=== PATIENT | female | born 1975 | race Caucasian/White ===

== ENCOUNTER → 2021-07-26 | Outpatient (CLI) | payer MEDICAID ==
[~2021-07-26] MED LIST: ACET-168 PO; AMLO-251; AMOX400S8; CANA100T; CARV25TA; CEFD300C3 PO; CLN.1T; DICY20TA PO; FLUC100T PO; INSU100I14 SQ; INSU100I29 SQ; IPRA3AMP31 IH; KETO10TA PO; LEVO500T81 PO; LISI10TA25 PO; LISI20TA26 PO; LISI40TA9; METF750T45 PO; METO-333 PO; MTC10T PO; OMEP20CA18 PO; ONDA4TAB11 PO; POTA-51 PO; POTA10CA43 PO; PROC10TA10 PO; PROM25SU43 RC; PROM25TA14 PO; PROM50SU10 RC; RT-ALBUINH IH; SCOP1PAT17 TD; SCOPALAMINE TD; SUCR1TAB36 PO; TRAZ150T72 PO; TRM50T PO; VENL150T PO
== END ==
LOC: WOUNDCARE 13:35 → MERGE 13:35
PROVIDERS: ATTEND Family Medicine
DX: S31.102A Unspecified open wound of abdominal wall, epigastric region without penetration into peritoneal cavity, initial encounter (principal); T81.31XA Disruption of external operation (surgical) wound, not elsewhere classified, initial encounter; L98.492 Non-pressure chronic ulcer of skin of other sites with fat layer exposed; E11.622 Type 2 diabetes mellitus with other skin ulcer; E66.01 Morbid (severe) obesity due to excess calories; E11.43 Type 2 diabetes mellitus with diabetic autonomic (poly)neuropathy; K31.84 Gastroparesis; B18.2 Chronic viral hepatitis C; L02.211 Cutaneous abscess of abdominal wall; B95.62 Methicillin resistant Staphylococcus aureus infection as the cause of diseases classified elsewhere; E11.52 Type 2 diabetes mellitus with diabetic peripheral angiopathy with gangrene
CPT/HCPCS: 11042; 97605

== ENCOUNTER 2021-07-29 04:12 | Emergency (ER) | payer MEDICAID, OTHER ==
[~2021-07-29] VITALS: Ht 157 cm; Wt 84.3 kg
[~2021-07-29 04:12] MED LIST changes: -PROC10TA10 PO
[2021-07-29] MEDS ORDERED: ONDANSETRON 4 MG/2 ML (SDV) Z0FRAN IVP STA ×2 (04:40→05:30)
[2021-07-29] MEDS ORDERED: fentaNYL INJ 100 MCG/2 ML AMP IVP STA ×2 (04:40→05:30)
[2021-07-29] MEDS ORDERED: NS IV 1000 ML 1,000 ML IV STA ×2 (04:40→05:36)
[2021-07-29 04:53] LABS: BASOPHILS % (AUTO) 0 % (0-10); EOSINOPHILS % (AUTO) 1 % (0-10); HEMATOCRIT 39 % (35-52); HEMOGLOBIN 13.8 g/dL (11.5-16.0); LYMPHOCYTES # (AUTO) 1.5 X 10^3 (1.0-4.0); LYMPHOCYTES % (AUTO) 14 % (12-44); MEAN CORPUSCULAR HEMOGLOBIN 30 pg (25-34); MEAN CORPUSCULAR HGB CONC 35 g/dL (32-36); MEAN CORPUSCULAR VOLUME 86 fL (80-99); MEAN PLATELET VOLUME 9.4 fL (9.0-12.2); MONOCYTES % (AUTO) 4 % (0-12); NEUTROPHILS # (AUTO) 8.7 X 10^3 (1.8-7.8); NEUTROPHILS % (AUTO) 81 % (42-75); PLATELET COUNT 353 10^3/uL (130-400); WHITE BLOOD COUNT 10.7 10^3/uL (4.3-11.0)
[2021-07-29 04:54] LABS: EOSINOPHILS # (AUTO) 0.1 10^3/uL (0.0-0.3); MONOCYTES # (AUTO) 0.4 X 10^3 (0.0-1.0)
--- NOTE | 2021-07-29 04:55 | ED General ---
General Chief Complaint: Abdominal/GI Problems Stated Complaint: NAUSEA/VOMITING/FEVER Nursing Triage Note: Pt c/o n/v and abd pain x few days. Was seen in ED on Monday for similar symptoms but has not followed up. Source of Information: Patient, Old Records History of Present Illness Date Seen by Provider: Jul 29, 2021 Time Seen by Provider: 04:14 Initial Comments 45-year-old female presenting with recurrent complaints of continued abdominal pain and nausea and vomiting. She is very anxious and hyperventilating on arrival to the ED. She states that she is running a fever of 101 Fahrenheit. She had not taken anything for her fever and the check in the emergency department shows that she is afebrile. She has a chronic wound VAC on her abdomen and had CT scan and evaluation done on the here in the ED that did not show any abscess or signs of fluid collection. Her blood work showed a. Stable and she had improved with pain medicine and nausea medicine with IV fluids. She states that she has seen the wound care staff but she has not followed up with her specialist out of [facility] since being seen. She has had multiple ER visits since the first of the year for similar complaints. She is very anxious and sure that there is an infection and something wrong with her abdomen despite the repeated test not showing that. She states that she had gotten much worse since yesterday July 28. Finally at 4 in the morning she came to the emergency department for these recurrent symptoms and complaints that have been going on for over 3 weeks but she felt it was worse in last 12-16 hours. Modifying Factors: worse with Eating Associated Systoms: No Chest Pain, No Cough, No Diaphoresis; Fever/Chills (reports fever of 101 F at home prior to coming to ED. Did not treat fever and is afebrile on arrival to ED), Loss of Appetite, Malaise, Nausea/Vomiting; No Rash, No Seizure, No Shortness of Air, No Syncope; Weakness Allergies and Home Medications Allergies Coded Allergies: adhesive tape (Verified Allergy, Unknown, 07/29/21) chlorhexidine (Verified Allergy, Unknown, 07/29/21) fluvoxamine (Verified Allergy, Unknown, 07/29/21) hydromorphone (Verified Allergy, Unknown, 07/29/21) latex (Verified Allergy, Unknown, 07/29/21) meperidine (Verified Allergy, Unknown, 07/29/21) metoclopramide (Verified Allergy, Unknown, Tardive Dyskinesia, 07/29/21) morphine (Verified Allergy, Unknown, 07/29/21) promethazine (Verified Allergy, Unknown, 07/29/21) sulfamethoxazole (Verified Allergy, Unknown, 07/29/21) trimethoprim (Verified Allergy, Unknown, 07/29/21) Patient Home Medication List Home Medication List Reviewed: Yes Prochlorperazine Maleate (Prochlorperazine Maleate) 10 Mg Tablet, 10 MG PO Q6H PRN for NAUSEA/VOMITING-2ND LINE Prescribed by: RANULFO GOODRICH on 07/29/21 0608 Review of Systems Review of Systems Constitutional: see HPI, chills EENTM: no symptoms reported Respiratory: short of breath (feels short fo breath with her anxiety) Cardiovascular: No chest pain Gastrointestinal: see HPI Genitourinary: no symptoms reported Musculoskeletal: no symptoms reported Skin: No change in color Psychiatric/Neurological: Anxiety Past [id number] Hx Patient Social History Tobacco Use?: Yes Tobacco type used: Cigarettes Use of E-Cig and/or Vaping dev: No Substance use?: No Alcohol Use?: No Pt feels they are or have been: No Immunizations Up To Date First/Initial COVID19 Vaccinat: 01/20 Second COVID19 Vaccination Guy: 01/20 Seasonal Allergies Seasonal Allergies: Yes Past Medical History Surgery/Hospitalization HX: Gastroparesis, chronic abdominal wound infection with MRSA, jejunostomy tube October 2019, gastric stimulator, pyloroplasty, cholecystectomy, hysterectomy, orthopedics Surgeries: Yes Abdominal, Gallbladder, Hysterectomy, Orthopedic Respiratory: Yes Asthma Cardiac: No Neurological: No Female 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 Disorders: 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 oz. kg; 34.00 BMI Method: General Appearance: Anxious, Moderate Distress (Hyperventilating and anxious) HEENT: No Moist Mucous Membranes (Slightly dry mucous membranes) Neck: Full Range of Motion, Normal Inspection, Non Tender Respiratory: Chest Non Tender, Lungs Clear, Normal Breath Sounds, No Accessory Muscle Use, No Respiratory Distress Cardiovascular: Regular Rate, Rhythm, Normal Peripheral Pulses Gastrointestinal: Normal Bowel Sounds, No Pulsatile Mass, Soft; No Distended; Guarding; No Rebound; Tenderness (Diffuse tenderness abdomen.), Other (Wound VAC in place) Rectal: Deferred Extremity: Normal Capillary Refill, Normal Inspection, No Pedal Edema Neurologic/Psychiatric: Alert, Oriented x3 Skin: Warm/Dry Focused Exam Lactate Level 07/29/21 04:40: Lactic Acid Level 2.23*H Lactic Acid Level Laboratory Tests Test 07/29/21 04:40 Lactic Acid Level 2.23 MMOL/L (0.50-2.00) *H Progress/Results/Core Measures Suspected Sepsis SIRS Temperature: Pulse: 88 Respiratory Rate: 16 Laboratory Tests 07/29/21 04:40: White Blood Count 10.7 Blood Pressure 199 /103 Mean: 135 07/29/21 04:40: Lactic Acid Level 2.23*H Laboratory Tests 07/29/21 04:40: Creatinine 0.72, Platelet Count 353, Total Bilirubin 0.3 Results/Orders Lab Results Laboratory Tests Test 07/29/21 04:40 07/29/21 05:00 Range/Units White Blood Count 10.7 4.3-11.0 10^3/uL Red Blood Count 4.55 3.80-5.11 10^6/uL Hemoglobin 13.8 11.5-16.0 g/dL Hematocrit 39 35-52 % Mean Corpuscular Volume 86 80-99 fL Mean Corpuscular Hemoglobin 30 25-34 pg Mean Corpuscular Hemoglobin Concent 35 32-36 g/dL Red Cell Distribution Width 13.6 10.0-14.5 % Platelet Count 353 130-400 10^3/uL Mean Platelet Volume 9.4 9.0-12.2 fL Immature Granulocyte % (Auto) 0 % Neutrophils (%) (Auto) 81 H 42-75 % Lymphocytes (%) (Auto) 14 12-44 % Monocytes (%) (Auto) 4 0-12 % Eosinophils (%) (Auto) 1 0-10 % Basophils (%) (Auto) 0 0-10 % Neutrophils # (Auto) 8.7 H 1.8-7.8 X 10^3 Lymphocytes # (Auto) 1.5 1.0-4.0 X 10^3 Monocytes # (Auto) 0.4 0.0-1.0 X 10^3 Eosinophils # (Auto) 0.1 0.0-0.3 10^3/uL Basophils # (Auto) 0.0 0.0-0.1 10^3/uL Immature Granulocyte # (Auto) 0.0 0.0-0.1 10^3/uL Sodium Level 136 135-145 MMOL/L Potassium Level 3.7 3.6-5.0 MMOL/L Chloride Level 101 98-107 MMOL/L Carbon Dioxide Level 20 L 21-32 MMOL/L Anion Gap 15 H 5-14 MMOL/L Blood Urea Nitrogen 7 7-18 MG/DL Creatinine 0.72 0.60-1.30 MG/DL Estimat Glomerular Filtration Rate 105 BUN/Creatinine Ratio 10 Glucose Level 300 H 70-105 MG/DL Lactic Acid Level 2.23 *H 0.50-2.00 MMOL/L Calcium Level 9.3 8.5-10.1 MG/DL Corrected Calcium 9.4 8.5-10.1 MG/DL Total Bilirubin 0.3 0.1-1.0 MG/DL Aspartate Amino Transf (AST/SGOT) 19 5-34 U/L Alanine Aminotransferase (ALT/SGPT) 14 0-55 U/L Alkaline Phosphatase 78 40-136 U/L Total Protein 7.1 6.4-8.2 GM/DL Albumin 3.9 3.2-4.5 GM/DL Lipase 33 8-78 U/L Urine Color ORANGE Urine Clarity SL CLOUDY Urine pH 6.5 5-9 Urine Specific [place] >=1.030 1.016-1.022 Urine Protein 2+ H NEGATIVE Urine Glucose (UA) TRACE H NEGATIVE Urine Ketones 1+ H NEGATIVE Urine Nitrite NEGATIVE NEGATIVE Urine Bilirubin NEGATIVE NEGATIVE Urine Urobilinogen 0.2 < = 1.0 MG/DL Urine Leukocyte Esterase NEGATIVE NEGATIVE Urine RBC (Auto) NEGATIVE NEGATIVE Urine RBC 5-10 H /HPF Urine WBC 0-2 /HPF Urine Squamous Epithelial Cells 5-10 /HPF Urine Crystals NONE /LPF Urine Calcium Oxalate Crystals MODERATE H /LPF Urine Bacteria MODERATE H /HPF Urine Casts NONE /LPF Urine Hyaline Casts 10-25 H /LPF Urine Mucus LARGE H /LPF Urine Culture Indicated YES My Orders Orders - RANULFO GOODRICH MD Comprehensive Metabolic Panel (07/29/21 04:40) Lipase (07/29/21 04:40) Ua Culture If Indicated (07/29/21 04:40) Ed Iv/Invasive Line Start (07/29/21 04:40) Cbc With Automated Diff (07/29/21 04:40) Blood Culture (07/29/21 04:40) Lactic Acid Analyzer (07/29/21 04:40) Ns Iv 1000 Ml (Sodium Chloride 0.9%) (07/29/21 04:40) Fentanyl Inj (Sublimaze Injection) (07/29/21 04:40) Ondansetron Injection (Zofran Injectio (07/29/21 04:40) Urine Culture (07/29/21 05:00) Fentanyl Inj (Sublimaze Injection) (07/29/21 05:30) Ondansetron Injection (Zofran Injectio (07/29/21 05:30) Ns Iv 1000 Ml (Sodium Chloride 0.9%) (07/29/21 05:36) Prochlorperazine Injection (Compazine In (07/29/21 05:36) Pantoprazole Injection (Protonix Injecti (07/29/21 05:36) Lorazepam Injection (Ativan Injection) (07/29/21 05:36) Vital Signs/I&O 07/29/21 07/29/21 04:17 06:00 Temp 36.9 Pulse 88 98 Resp 16 15 B/P (MAP) 199/103 (135) 166/78 Pulse Ox 98 97 O2 Delivery Room Air Room Air Capillary Refill : Blood Pressure Mean: 135 Progress Note #1: Progress Note Patient appears very anxious. She is hyperventilating. Her temperature here is afebrile. She is not tachycardic. Advised that we could repeat labs and testi ng similar to what was done on the and see if there is anything acute or different. However she likely needs to continue follow-up with wound care team and with her specialists out of [facility]. We will give 1 L of normal saline for IV fluids and hydration. Give 4 mg of Zofran IV for nausea. Patient was requesting ice chips as soon as she got back to the room. For her chronic abdominal pain will give fentanyl 50 mcg IV x1. Progress Note #2: Progress Note Labs appear stable with white blood cell count of 10.7 and hemoglobin of 13.8. She does not have acute significant abnormality other chemistry panel other than she has elevated glucose of 300. Her lactic acid was just above 2 and is likely related to dehydration and her hyperventilation since she is not showing signs of sepsis otherwise. Her urinalysis did not show signs of definite infection but did show elevated specific gravity greater than 1.030. Her UA from 07/25 had looked similar and the culture came back showing multiple organisms for contamination rather than true urine/bladder infection. Patient is resting in the room and not having vomiting or gagging until staff present to the room. Then see starts dry heaving until she forces herself to throw up. Advised that with just having a CT on the that did not show any signs of abscess or worsening infection will defer putting her through additional radiation today. Will order a second liter of IV fluids for hydration, repeat the fentanyl 50 mcg for pain, repeat Zofran 4 mg IV for nausea. When asked if patient could tolerate any other nausea medicines she said that Compazine sometimes helps. 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 Since she still seems anxious when staff comes into the room we will also try some Ativan. Still in addition to the repeat fentanyl and Zofran and second liter of normal saline for hydration we will give her Compazine 10 mg IV for nausea, Protonix 40 mg IV for gastritis and acid reducing, lorazepam 0.5 mg IV for anxiety and to help with her nausea. Plan to discharge to home after these medications and fluids have been administered and have her check back with her regular providers, wound care, and surgeon through [facility] for these chronic and recurrent conditions of abdominal pain and n/v. Departure Impression Primary Impression: Nausea and vomiting in adult Additional Impressions: Chronic generalized abdominal pain Dehydration Disposition: 01 HOME, SELF-CARE Condition: Stable Departure-Patient Inst. Decision time for Depature: 06:08 Referrals: SELF,VIKY BALL Primary Care Physician Patient Instructions: Nausea and Vomiting, Adult ED, Dehydration, Adult ED, Abdominal Pain, Adult ED Add. Discharge Instructions: Continue with your medications from home. Continue to sip on fluids and work on pushing fluids to try and be better hydrated. Follow up with clinic and with your surgeon from [facility] for your recurrent abdominal pain with nausea and vomiting. All discharge instructions reviewed with patient and/or family. Voiced understanding. Scripts Prochlorperazine Maleate (Prochlorperazine Maleate) 10 Mg Tablet 10 MG PO Q6H PRN for NAUSEA/VOMITING-2ND LINE for 5 Days, #20 TAB 0 Refills Prov: RANULFO GOODRICH MD 07/29/21 RANULFO GOODRICH MD Jul 29, 2021 04:55
[2021-07-29 05:19] LABS: ALBUMIN 3.9 GM/DL (3.2-4.5); BILIRUBIN,TOTAL 0.3 MG/DL (0.1-1.0); CALCIUM 9.3 MG/DL (8.5-10.1); CREATININE SERUM 0.72 MG/DL (0.60-1.30); POTASSIUM 3.7 MMOL/L (3.6-5.0); TOTAL PROTEIN 7.1 GM/DL (6.4-8.2)
[2021-07-29 05:20] LABS: BACTERIA,URINE MODERATE /HPF; BILIRUBIN,URINE NEGATIVE (NEGATIVE); CALCIUM OXALATE CRYSTALS,UR MODERATE /LPF; CLARITY,URINE SL CLOUDY; COLOR,URINE ORANGE; GLUCOSE, URINE (UA) TRACE (NEGATIVE); KETONES,URINE 1+ (NEGATIVE); LEUKOCYTE ESTERASE ,URINE NEGATIVE (NEGATIVE); NITRITE,URINE NEGATIVE (NEGATIVE); PH,URINE 6.5 (5-9); PROTEIN,URINE 2+ (NEGATIVE); WBC,URINE 0-2 /HPF
[2021-07-29] MEDS ORDERED: PROCHLORPERAZINE 10 MG/2ML INJ (COMPAZINE) IV STA (05:36)
[2021-07-29] MEDS ORDERED: LORazepam INJ 2 MG/ML (ATIVAN) VIAL IVP STA (05:36)
[2021-07-29] MEDS ORDERED: PANTOPRAZOLE 40 MG (PROTONIX) VIAL IV STA (05:36)
[2021-07-29] MEDS ORDERED: PROC10TA10 PO (06:08)
[2021-07-29 06:25] VITALS: BP 166/78
== END 2021-07-29 06:25 | disposition home or self-care (01) ==
LOC: ER FS 04:19
DX: R11.2 Nausea with vomiting, unspecified (principal); R10.84 Generalized abdominal pain; E86.0 Dehydration; R06.4 Hyperventilation; J45.909 Unspecified asthma, uncomplicated; F41.9 Anxiety disorder, unspecified; E11.9 Type 2 diabetes mellitus without complications; Z72.0 Tobacco use; Z91.040 Latex allergy status; Z79.899 Other long term (current) drug therapy
CPT/HCPCS: 36415; 80053; 81000; 83605; 83690; 85025; 87040; 87088

== ENCOUNTER → 2021-08-02 | Outpatient (CLI) | payer MEDICAID ==
[~2021-08-02] MED LIST changes: +PROC10TA10 PO
== END ==
LOC: WOUNDCARE 12:10
PROVIDERS: ATTEND Family Medicine
DX: S31.102A Unspecified open wound of abdominal wall, epigastric region without penetration into peritoneal cavity, initial encounter (principal); T81.31XA Disruption of external operation (surgical) wound, not elsewhere classified, initial encounter; L98.492 Non-pressure chronic ulcer of skin of other sites with fat layer exposed; E11.622 Type 2 diabetes mellitus with other skin ulcer; E11.52 Type 2 diabetes mellitus with diabetic peripheral angiopathy with gangrene; E66.01 Morbid (severe) obesity due to excess calories; E11.43 Type 2 diabetes mellitus with diabetic autonomic (poly)neuropathy; K31.84 Gastroparesis; B18.2 Chronic viral hepatitis C; L02.211 Cutaneous abscess of abdominal wall
CPT/HCPCS: 11042

== ENCOUNTER 2021-08-06 10:15 | Observation (INO) | payer MEDICAID ==
[~2021-08-06] VITALS: Ht 158 cm; Wt 83.0 kg
[2021-08-06 10:40] LABS: CLARITY,URINE TURBID; COLOR,URINE YELLOW; GLUCOSE, URINE (UA) NEGATIVE (NEGATIVE); KETONES,URINE TRACE (NEGATIVE); LEUKOCYTE ESTERASE ,URINE NEGATIVE (NEGATIVE); NITRITE,URINE NEGATIVE (NEGATIVE); PH,URINE 6.5 (5-9); PROTEIN,URINE 2+ (NEGATIVE)
[2021-08-06] MEDS ORDERED: NS IV 1000 ML 1,000 ML IV STA (10:47)
[2021-08-06] MEDS ORDERED: LORazepam INJ 2 MG/ML (ATIVAN) VIAL IVP STA (10:47)
[2021-08-06] MEDS ORDERED: fentaNYL INJ 100 MCG/2 ML AMP IVP STA (10:47)
[2021-08-06] MEDS ORDERED: PANTOPRAZOLE 40 MG (PROTONIX) VIAL IV STA (10:47)
[2021-08-06] MEDS ORDERED: ONDANSETRON 4 MG/2 ML (SDV) Z0FRAN IVP STA (10:47)
--- NOTE | 2021-08-06 10:51 | ED GI ---
General Chief Complaint: Abdominal/GI Problems Stated Complaint: VOMITING Nursing Triage Note: Patient has presented to ER with cc of nausea, vomiting, and abd pain for the last 3 weeks. She reports being seen in the [facility] ER on and received fluids and was sent home. She reports that she is not getting any better and came to ER for evaluation. Source of Information: Patient, Old Records History of Present Illness Date Seen by Provider: Aug 06, 2021 Time Seen by Provider: 10:22 Initial Comments 45-year-old female presenting yet again with diffuse abdominal pain, nausea, vomiting, mucousy diarrhea. She states that this is been going on ever since she was discharged from the emergency department on the . She had been seen in wound clinic on the and then saw Dr. Juan in [place] on August 03. He had discontinued her wound VAC and sent her to the emergency department for IV fluids and electrolytes. She had been discharged from the emergency department to home again after her fluids and medications are infused. Patient presents again today stating that she continues to have nausea and vomiting with abdominal pain and mucousy diarrhea. She states she has not been able to keep her medications down. She has concern for ulcers in her stomach. She is tearful and anxious. She reports that she feels like she needs to be in the hospital and does not feel like she can continue at home because she never gets better to the point that she can tolerate things by mouth at home with her home medicines for more than 1 or 2 days. She then goes back into her cycle of having nausea and vomiting and unable to control any episodes of vomiting or keep any medications down. Timing/Duration: Other (chronic for months but seen over 7 times in the ED in last 4-5 weeks for same symptoms) Severity/Quality: Severe, Cramping, Sharp Location: Generalized Abdomen Activities at Onset: Emotional Stress (stress and anxiety makes her symptoms worse) Modifying Factors: Worsens With Eating, Worsens With Palpation Associated Symptoms: No Back Pain, No Chest Pain, No Diaphoresis, No Fever/Chills; Fatigue; No Headache, No Heartburn; Nausea/Vomiting; No Rash, No Shortness of Air, No Swelling/Mass in Abdomen, No Syncope; Weakness Allergies and Home Medications Allergies Coded Allergies: adhesive tape (Verified Allergy, Unknown, 07/29/21) chlorhexidine (Verified Allergy, Unknown, 07/29/21) fluvoxamine (Verified Allergy, Unknown, 07/29/21) hydromorphone (Verified Allergy, Unknown, 07/29/21) latex (Verified Allergy, Unknown, 07/29/21) meperidine (Verified Allergy, Unknown, 07/29/21) metoclopramide (Verified Allergy, Unknown, Tardive Dyskinesia, 07/29/21) morphine (Verified Allergy, Unknown, 07/29/21) promethazine (Verified Allergy, Unknown, 07/29/21) sulfamethoxazole (Verified Allergy, Unknown, 07/29/21) trimethoprim (Verified Allergy, Unknown, 07/29/21) Patient Home Medication List Home Medication List Reviewed: Yes Acetaminophen (Acetaminophen Extra Strength) 500 Mg Tablet, 500 MG PO Q8H PRN for PAIN-BREAKTHROUGH, (Reported) Entered as Reported by: WILLIAN GARZA on 07/28/18 1037 Albuterol Sulfate (Proair Hfa) 1 Puff Puff, 2 PUFF IH Q4H PRN for SHORTNESS OF BREATH, (Reported) Entered as Reported by: WILLIAN GARZA on 07/28/18 1032 Amlodipine Besylate (Amlodipine Besylate) 10 Mg Tablet, (Reported) Entered as Reported by: ASHLEY BAE on 10/14/19 1600 Amoxicillin/Potassium Clav (Amox Tr-K Clv 400-57/5 Susp) 400 Mg/5 Ml Susp.recon, (Reported) Entered as Reported by: ASHLEY BAE on 10/14/19 1600 Canagliflozin (Invokana) 100 Mg Tablet, (Reported) Entered as Reported by: ASHLEY BAE on 05/26/19 1416 Carvedilol (Carvedilol) 25 Mg Tablet, (Reported) Entered as Reported by: ASHLEY BAE on 10/14/19 1600 Clonidine HCl (Clonidine HCl) 0.1 Mg Tablet, (Reported) Entered as Reported by: ASHLEY BAE on 10/14/19 1600 Dicyclomine HCl (Dicyclomine HCl) 20 Mg Tablet, 20 MG PO BID Prescribed by: ALEXANDER HOSKINS on 01/14/20 1541 Fluconazole (Diflucan) 100 Mg Tablet, 100 MG PO DAILY Prescribed by: ALEXANDER HOSKINS on 03/13/20 1632 Insulin Aspart (Novolog Flexpen) 300 Units/3 Ml Solution, 7 UNITS SQ AC Prescribed by: BRIANA MOORE on 07/31/18 0955 Insulin Detemir (Levemir Flextouch) 100 Unit/1 Ml Insuln.pen, 20 UNIT SQ HS Prescribed by: BRIANA MOORE on 07/31/18 0955 Ipratropium/Albuterol Sulfate (Iprat-Albut 0.5-3(2.5) mg/3 ml) 3 Ml Ampul.neb, 3 ML IH Q4H PRN for SHORTNESS OF BREATH, (Reported) Entered as Reported by: WILLIAN GARZA on 07/28/18 1033 Ketorolac Tromethamine (Ketorolac Tromethamine) 10 Mg Tablet, 10 MG PO Q6H PRN for PAIN-MODERATE (5-7) Prescribed by: EULALIA LU MD on 06/29/19 1344 Lisinopril (Lisinopril) 20 Mg Tablet, 20 MG PO DAILY Prescribed by: BRIANA MOORE on 07/31/18 0955 Lisinopril (Lisinopril) 40 Mg Tablet, (Reported) Entered as Reported by: ASHLEY BAE on 10/14/19 1600 Metformin HCl (Metformin HCl ER) 750 Mg Tab.er.24h, 750 MG PO BID, (Reported) Entered as Reported by: WILLIAN GARZA on 07/28/18 1034 Metoclopramide HCl (Metoclopramide HCl) 10 Mg Tablet, 10 MG PO QID, (Reported) Entered as Reported by: WILLIAN GARZA on 07/28/18 1036 Omeprazole (Omeprazole) 20 Mg Capsule.dr, 20 MG PO HS, (Reported) Entered as Reported by: WILLIAN GARZA on 07/28/18 1035 Ondansetron (Ondansetron Odt) 4 Mg Tab.rapdis, 4 MG PO Q4H PRN for NAUSEA/VOMITING-1ST LINE, (Reported) Entered as Reported by: WILLIAN GARZA on 07/28/18 1036 Ondansetron (Ondansetron Odt) 4 Mg Tab.rapdis, 4 MG PO BID Prescribed by: ALEXANDER HOSKINS on 01/14/20 1541 Potassium Chloride (Potassium Chloride) 20 Meq Tablet.er, 20 MEQ PO BID Prescribed by: SHERYL GREEN on 07/15/212004 Prochlorperazine Maleate (Prochlorperazine Maleate) 10 Mg Tablet, 10 MG PO Q6H PRN for NAUSEA/VOMITING-2ND LINE Prescribed by: RANULFO GOODRICH on 07/29/21 0608 Promethazine HCl (Promethazine Tablet) 25 Mg Tablet, 25 MG PO Q6H PRN for NAUSEA/VOMITING, (Reported) Entered as Reported by: WILLIAN GARZA on 07/28/18 1029 Promethazine HCl (Promethazine Tablet) 25 Mg Tablet, 25 MG PO Q6H PRN for NAUSEA/VOMITING-2ND LINE Prescribed by: MELVINA PRESSLEY on 12/17/18 192 Promethazine HCl (Phenergan) 50 Mg Supp.rect, 50 MG RC BID PRN Prescribed by: HIREN VIZCARRA on 05/24/19 1331 Promethazine HCl (Promethazine Tablet) 25 Mg Tablet, 25 MG PO Q8H PRN for NAUSEA/VOMITING Prescribed by: RENY NAGY on 07/12/21 1520 Sucralfate (Carafate) 1 Gm Tablet, 1 GM PO QID Prescribed by: MELVINA PRESSLEY on 12/17/18 192 Tramadol HCl (Tramadol HCl) 50 Mg Tablet, 50 MG PO Q6H PRN for PAIN-MILD, (Reported) Entered as Reported by: WILLIAN GARZA on 07/28/18 1030 Trazodone HCl (Trazodone HCl) 150 Mg Tablet, 300 MG PO HS, (Reported) Entered as Reported by: WILLIAN GARZA on 07/28/18 1034 Venlafaxine HCl (Venlafaxine HCl ER) 150 Mg Tab.er.24, 150 MG PO DAILY, (Rep orted) Entered as Reported by: WILLIAN GARZA on 07/28/18 1032 Review of Systems Review of Systems Constitutional: chills; No fever, No malaise EENTM: No Symptoms Reported Respiratory: No Symptoms Reported Cardiovascular: No Symptoms Reported Gastrointestinal: See HPI Genitourinary: Other (decreased output) Musculoskeletal: no symptoms reported Skin: No rash Psychiatric/Neurological: Anxiety Past Ypdrprg-Mtimtr-Rclacw Hx Patient Social History Tobacco Use?: Yes Tobacco type used: Cigarettes Use of E-Cig and/or Vaping dev: No Substance use?: No Alcohol Use?: No Immunizations Up To Date First/Initial COVID19 Vaccinat: 01/20 Second COVID19 Vaccination Guy: 01/20 Seasonal Allergies Seasonal Allergies: Yes Past Medical History Surgery/Hospitalization HX: Gastroparesis, chronic abdominal wound infection with MRSA, jejunostomy tube October 2019, gastric stimulator, pyloroplasty, cholecystectomy, hysterectomy, orthopedics Surgeries: Yes Abdominal, Gallbladder, Hysterectomy, Orthopedic Respiratory: Yes Asthma Currently Using CPAP: Yes Currently Using BIPAP: No Cardiac: No Neurological: No Female 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 Disorders: Denies 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 Sexually Transmitted Disease: No HIV/AIDS: No Genitourinary: No Gastrointestinal: Yes (Gastroparesis, hepatitis C, cyclic vomiting) Gastroesophageal Reflux, Chronic Diarrhea, Hepatitis, Ulcer Musculoskeletal: No Endocrine: Yes Diabetes, Insulin dep HEENT: Yes (wears glasses) Hearing Impairment: Denies Cancer: No Psychosocial: Yes (Schizoaffective disorder) Anxiety, Depression Integumentary: No Blood Disorders: No Physical Exam Vital Signs Vital Signs - First Documented 08/06/21 10:42 Temp 36.9 Pulse 78 Resp 22 B/P (MAP) 193/135 (154) Pulse Ox 98 Capillary Refill : Height/Weight/BMI Height: 5'2.00" Weight: 184lbs. 7.0oz. 83.503540ey; 33.00 BMI Method:Actual General Appearance: other (chronically ill, anxious and tearful) HEENT: pharynx normal Neck: non-tender, full range of motion, supple, normal inspection Respiratory: chest non-tender, lungs clear, normal breath sounds Cardiovascular: normal peripheral pulses, regular rate, rhythm Gastrointestinal: soft, no pulsatile mass, abnormal bowel sounds (hypoactive); No distended, No guarding, No rebound; tenderness (diffuse) Rectal: deferred Extremities: normal range of motion, non-tender, normal capillary refill Back: no CVA tenderness Pelvic: normal external exam, normal adnexa Neurologic/Psychiatric: alert, oriented x 3 Skin: normal color, warm/dry Images 1 - Diffuse abdominal pain and cramping. Dressing in place over open wounds on her abdomen Progress/Results/Core Measures Results/Orders Lab Results Laboratory Tests Test 08/06/21 10:20 08/06/21 11:25 Range/Units Urine Color YELLOW Urine Clarity TURBID Urine pH 6.5 5-9 Urine Specific Hutchins >=1.030 1.016-1.022 Urine Protein 2+ H NEGATIVE Urine Glucose (UA) NEGATIVE NEGATIVE Urine Ketones TRACE H NEGATIVE Urine Nitrite NEGATIVE NEGATIVE Urine Bilirubin 1+ H NEGATIVE Urine Urobilinogen 0.2 < = 1.0 MG/DL Urine Leukocyte Esterase NEGATIVE NEGATIVE Urine RBC (Auto) TRACE-I H NEGATIVE Urine RBC NONE /HPF Urine WBC 2-5 /HPF Urine Squamous Epithelial Cells 10-25 H /HPF Urine Crystals NONE /LPF Urine Bacteria MODERATE H /HPF Urine Casts NONE /LPF Urine Mucus MODERATE H /LPF Urine Culture Indicated NO White Blood Count 14.2 H 4.3-11.0 10^3/uL Red Blood Count 4.44 3.80-5.11 10^6/uL Hemoglobin 13.5 11.5-16.0 g/dL Hematocrit 38 35-52 % Mean Corpuscular Volume 87 80-99 fL Mean Corpuscular Hemoglobin 30 25-34 pg Mean Corpuscular Hemoglobin Concent 35 32-36 g/dL Red Cell Distribution Width 13.9 10.0-14.5 % Platelet Count 236 130-400 10^3/uL Mean Platelet Volume 9.9 9.0-12.2 fL Immature Granulocyte % (Auto) 0 % Neutrophils (%) (Auto) 83 H 42-75 % Lymphocytes (%) (Auto) 12 12-44 % Monocytes (%) (Auto) 5 0-12 % Eosinophils (%) (Auto) 0 0-10 % Basophils (%) (Auto) 0 0-10 % Neutrophils # (Auto) 11.8 H 1.8-7.8 10^3/uL Lymphocytes # (Auto) 1.7 1.0-4.0 10^3/uL Monocytes # (Auto) 0.6 0.0-1.0 10^3/uL Eosinophils # (Auto) 0.0 0.0-0.3 10^3/uL Basophils # (Auto) 0.0 0.0-0.1 10^3/uL Immature Granulocyte # (Auto) 0.1 0.0-0.1 10^3/uL Neutrophils % (Manual) 77 % Lymphocytes % (Manual) 19 % Monocytes % (Manual) 4 % Eosinophils % (Manual) 0 % Basophils % (Manual) 0 % Band Neutrophils 0 % Sodium Level 134 L 135-145 MMOL/L Potassium Level 3.6 3.6-5.0 MMOL/L Chloride Level 102 98-107 MMOL/L Carbon Dioxide Level 20 L 21-32 MMOL/L Anion Gap 12 5-14 MMOL/L Blood Urea Nitrogen 6 L 7-18 MG/DL Creatinine 0.61 0.60-1.30 MG/DL Estimat Glomerular Filtration Rate 112 BUN/Creatinine Ratio 10 Glucose Level 221 H 70-105 MG/DL Calcium Level 9.3 8.5-10.1 MG/DL Corrected Calcium 9.4 8.5-10.1 MG/DL Magnesium Level 1.6 1.6-2.4 MG/DL Total Bilirubin 0.4 0.1-1.0 MG/DL Aspartate Amino Transf (AST/SGOT) 16 5-34 U/L Alanine Aminotransferase (ALT/SGPT) 10 0-55 U/L Alkaline Phosphatase 68 40-136 U/L Total Protein 7.0 6.4-8.2 GM/DL Albumin 3.9 3.2-4.5 GM/DL Lipase 29 8-78 U/L My Orders Orders - RANULFO GOODRICH MD Comprehensive Metabolic Panel (08/06/21 10:35) Lipase (08/06/21 10:35) Ua Culture If Indicated (08/06/21 10:35) Ed Iv/Invasive Line Start (08/06/21 10:35) Cbc With Automated Diff (08/06/21 10:35) Magnesium (08/06/21 10:35) Ns Iv 1000 Ml (Sodium Chloride 0.9%) (08/06/21 10:47) Lorazepam Injection (Ativan Injection) (08/06/21 10:47) Pantoprazole Injection (Protonix Injecti (08/06/21 10:47) Ondansetron Injection (Zofran Injectio (08/06/21 10:47) Fentanyl Inj (Sublimaze Injection) (08/06/21 10:47) Manual Differential (08/06/21 11:25) Prochlorperazine Injection (Compazine In (08/06/21 13:09) Diphenhydramine Injection (Benadryl Inje (08/06/21 13:09) Vital Signs/I&O 08/06/21 10:42 Temp 36.9 Pulse 78 Resp 22 B/P (MAP) 193/135 (154) Pulse Ox 98 Blood Pressure Mean: 154 Progress Progress Note #1: Progress Note Obtain basic labs and electrolytes as well as urinalysis. Give IV fluids 1 L normal saline for hydration, fentanyl 100 mcg for pain as patient states she is not taking her regular pain medicines, Protonix for gastritis, Zofran 8 mg IV for nausea and vomiting, Ativan 1 mg IV for anxiety and cyclic vomiting. Differential diagnosis includes cyclic vomiting, anxiety, colitis, diverticulitis Progress Note #2: Progress Note Labs show mild elevation of her white blood cell count of 14,000 without a left shift. Her urinalysis is concentrated with a specific gravity greater than 1.030. She has stable electrolytes with glucose of 220. Discussed with Dr. Orozco for the [facility] about [facility] fluids and medications beyond what she can get just in the emergency department. Patient was still not able to tolerate oral intake here in the ED and is diabetic and not tolerating her medicines at home. Progress Note #3: Progress Note pt remained stable here in the ED waiting on bed placement and transport. EMS here to transport patient to [facility] at 1410 Departure Communication (Admissions) Time/Spoke to Admitting Phy: 12:[address] Orozco and as the patient still has nausea and vomiting and is dehydrated with a specific gravity greater than 1.030 Place patient in observation to continue with fluids and medications to try and get her tolerating oral intake. Impression Primary Impression: Cyclic vomiting syndrome Additional Impressions: Diffuse abdominal pain Nausea vomiting and diarrhea Dehydration Hypertension Qualified Codes: I10 - Essential (primary) hypertension Disposition: 30 STILL A PATIENT Condition: Stable Admissions Decision to Admit Reason: Admit from ER (General) Decision to Admit/Date: Aug 06, 2021 Time/Decision to Admit Time: 12:40 Departure-Patient Inst. Referrals: VIKY BRUNO MD (PCP/Family) Primary Care Physician RANULFO GOODRICH MD Aug 06, 2021 10:51
[2021-08-06 11:28] LABS: BASOPHILS % (AUTO) 0 % (0-10); EOSINOPHILS % (AUTO) 0 % (0-10); HEMATOCRIT 38 % (35-52); HEMOGLOBIN 13.5 g/dL (11.5-16.0); LYMPHOCYTES # (AUTO) 1.7 10^3/uL (1.0-4.0); LYMPHOCYTES % (AUTO) 12 % (12-44); MEAN CORPUSCULAR HEMOGLOBIN 30 pg (25-34); MEAN CORPUSCULAR HGB CONC 35 g/dL (32-36); MEAN CORPUSCULAR VOLUME 87 fL (80-99); MEAN PLATELET VOLUME 9.9 fL (9.0-12.2); MONOCYTES # (AUTO) 0.6 10^3/uL (0.0-1.0); MONOCYTES % (AUTO) 5 % (0-12); NEUTROPHILS # (AUTO) 11.8 10^3/uL (1.8-7.8); NEUTROPHILS % (AUTO) 83 % (42-75); PLATELET COUNT 236 10^3/uL (130-400); WHITE BLOOD COUNT 14.2 10^3/uL (4.3-11.0)
[2021-08-06 12:10] LABS: BILIRUBIN,TOTAL 0.4 MG/DL (0.1-1.0); CALCIUM 9.3 MG/DL (8.5-10.1); CREATININE SERUM 0.61 MG/DL (0.60-1.30); MAGNESIUM 1.6 MG/DL (1.6-2.4); POTASSIUM 3.6 MMOL/L (3.6-5.0)
[2021-08-06 12:11] LABS: ALBUMIN 3.9 GM/DL (3.2-4.5)
[2021-08-06 12:18] LABS: BACTERIA,URINE MODERATE /HPF; BILIRUBIN,URINE 1+ (NEGATIVE)
[2021-08-06 12:21] LABS: BAND NEUTROPHILS 0 %; BASOPHILS % (MANUAL) 0 %; EOSINOPHILS % (MANUAL) 0 %; LYMPHOCYTES % (MANUAL) 19 %; MONOCYTES % (MANUAL) 4 %; NEUTROPHILS % (MANUAL) 77 %
[2021-08-06] MEDS ORDERED: diphenhydrAMINE 50 MG/ML INJ (BENADRYL) IVP STA (13:09)
[2021-08-06] MEDS ORDERED: PROCHLORPERAZINE 10 MG/2ML INJ (COMPAZINE) IV STA (13:09)
[2021-08-06 16:00] VITALS: BP 210/100
[2021-08-06] MEDS ORDERED: LABETALOL HCL 20 MG/4 ML VIAL IV PRN (16:30)
[2021-08-06] MEDS ORDERED: LORazepam INJ 2 MG/ML (ATIVAN) VIAL IVP PRN (17:00)
[2021-08-06] MEDS: NS IV 1000 ML 1,000 ML IV SCH (17:04)
[2021-08-06 17:16] VITALS: BP 195/96
[2021-08-06] MEDS: inSUlin ASPART (NovoLOG) 1 UNIT/0.01 ML (CHARGE PER UNIT) SC SCH (17:50)
[2021-08-06 19:16] VITALS: BP 136/82
[2021-08-06] MEDS: ONDANSETRON 4 MG/2 ML (SDV) Z0FRAN IVP PRN (20:47)
[2021-08-06] MEDS: fentaNYL INJ 100 MCG/2 ML AMP IVP PRN (20:48)
[2021-08-07] VITALS (7 sets, daily range): BP systolic 149–189; BP diastolic 79–95
[2021-08-07] MEDS ORDERED: ONDA8TAB13 PO ×2 (01:54)
[2021-08-07] MEDS ORDERED: OMEP40CA6 PO ×2 (01:56)
[2021-08-07] MEDS ORDERED: PROM50TA3 PO ×2 (01:58)
[2021-08-07] MEDS ORDERED: METO-333 PO ×2 (02:00)
[2021-08-07] MEDS ORDERED: ATOR10TA66 PO ×2 (02:00)
[2021-08-07] MEDS ORDERED: PROM12.510 PR ×2 (02:00)
[2021-08-07] MEDS ORDERED: LISI10TA25 PO ×2 (02:02)
[2021-08-07] MEDS ORDERED: FLUT16SP22 ×2 (02:07)
[2021-08-07] MEDS ORDERED: CETI10TA17 PO ×2 (02:11)
[2021-08-07] MEDS ORDERED: MIRT45TA75 PO ×2 (02:11)
[2021-08-07] MEDS: NS IV 1000 ML 1,000 ML IV SCH ×3 (02:14→21:24)
[2021-08-07] MEDS: ONDANSETRON 4 MG/2 ML (SDV) Z0FRAN IVP PRN ×3 (02:18→23:11)
[2021-08-07] MEDS ORDERED: HYDR-700 PO ×2 (02:39)
[2021-08-07] MEDS ORDERED: SUCR1TAB PO ×2 (02:41)
[2021-08-07] MEDS ORDERED: GLUC1AUT2 SC ×2 (03:13)
[2021-08-07] MEDS ORDERED: FLUT1AER IH ×2 (03:13)
[2021-08-07] MEDS ORDERED: ALB0.5V INH (03:15)
[2021-08-07] MEDS ORDERED: INSU100I29 SQ ×2 (03:19)
[2021-08-07] MEDS ORDERED: OXYC5TAB PO ×2 (03:25)
[2021-08-07] MEDS ORDERED: LACT1CAP62 PO ×2 (03:32)
[2021-08-07] MEDS: inSUlin ASPART (NovoLOG) 1 UNIT/0.01 ML (CHARGE PER UNIT) SC SCH ×4 (06:42→18:10)
[2021-08-07 08:28] LABS: BASOPHILS % (AUTO) 0 % (0-10); EOSINOPHILS # (AUTO) 0.1 10^3/uL (0.0-0.3); EOSINOPHILS % (AUTO) 1 % (0-10); HEMATOCRIT 36 % (35-52); HEMOGLOBIN 12.3 g/dL (11.5-16.0); LYMPHOCYTES # (AUTO) 1.6 10^3/uL (1.0-4.0); LYMPHOCYTES % (AUTO) 20 % (12-44); MEAN CORPUSCULAR HEMOGLOBIN 31 pg (25-34); MEAN CORPUSCULAR HGB CONC 34 g/dL (32-36); MEAN CORPUSCULAR VOLUME 89 fL (80-99); MEAN PLATELET VOLUME 10.1 fL (9.0-12.2); MONOCYTES # (AUTO) 0.6 10^3/uL (0.0-1.0); MONOCYTES % (AUTO) 7 % (0-12); NEUTROPHILS # (AUTO) 5.8 10^3/uL (1.8-7.8); NEUTROPHILS % (AUTO) 72 % (42-75); PLATELET COUNT 211 10^3/uL (130-400)
[2021-08-07 08:39] LABS: POTASSIUM 3.5 MMOL/L (3.6-5.0)
[2021-08-07 08:40] LABS: CALCIUM 8.9 MG/DL (8.5-10.1)
[2021-08-07 08:45] LABS: CREATININE SERUM 0.76 MG/DL (0.60-1.30)
--- NOTE | 2021-08-07 12:42 | History & Physical-Hospitalist ---
History of Present Illness HPI/Chief Complaint The patient is a 45-year-old white female with known diabetic gastroparesis as well as cyclical vomiting syndrome reports her current bout began 3 weeks ago triggered by a phone call from her primary care after some lab work where she was told that she again had hepatitis C. She has a past history of hepatitis C and undergone antiviral therapy a number of years ago with apparent cure. When all of a sudden viral load returned at 0 indicative of past infection that is indeed cured. She has had a number of emergency room visits for nausea and vomiting with minimal solid intake only intermittently being able to keep down fluids and nothing for the past several days upon her reporting to the [place] emergency room where despite Zofran and Phenergan she was still vomiting. There was no hematemesis denies melena has a passage of peptic ulcer disease but on her last EGD did not have evidence for any potential bleeding sites although it is unclear how long ago this was. She does intermittently smoke marijuana but states she does so to calm her nerves and she does not normally have vomiting after that is also utilized as it increases her appetite when she is unable to eat. It been at least several days since her last usage. Past medical history is significant for gastric pacemaker placement and then sub sequently had to be removed she states as her body was rejecting it although it had been effective from a nausea and vomiting standpoint to at least some degree. She denies cough chest pain or shortness of breath Date Seen 08/07/21 Time Seen by a Provider: 10:45 Attending Physician Tres Tracey MD PCP Jorge Burgos MD Referring Physician Date of Admission Aug 06, 2021 at 15:05 Home Medications & Allergies Home Medications Reviewed patient Home Medication Reconciliation performed by pharmacy medication reconciliations blending technician and/or nursing. Patients Allergies have been reviewed. Allergies Allergies Coded Allergies adhesive tape (Verified Allergy, Unknown, 07/29/21) chlorhexidine (Verified Allergy, Unknown, 07/29/21) fluvoxamine (Verified Allergy, Unknown, 07/29/21) hydromorphone (Verified Allergy, Unknown, 07/29/21) latex (Verified Allergy, Unknown, 07/29/21) meperidine (Verified Allergy, Unknown, 07/29/21) metoclopramide (Verified Allergy, Unknown, Tardive Dyskinesia, 07/29/21) morphine (Verified Allergy, Unknown, 07/29/21) promethazine (Verified Allergy, Unknown, 07/29/21) sulfamethoxazole (Verified Allergy, Unknown, 07/29/21) trimethoprim (Verified Allergy, Unknown, 07/29/21) Past Nhuojte-Cyknyh-Vscrnh Hx Patient Social History Tobacco Use?: Yes Tobacco type used: Cigarettes Smoking Status: Current Everyday Smoker Use of E-Cig and/or Vaping dev: No Substance use?: No Alcohol Use?: No Pt feels they are or have been: No Immunizations Up To Date Date of Influenza Vaccine: Jun 06, 2018 First/Initial COVID19 Vaccinat: MODERNA Second COVID19 Vaccination Guy: MODERNA Tetanus Booster (TDap): More Than 5 Years Date of Pneumonia Vaccine: Jul 27, 2015 Seasonal Allergies Seasonal Allergies: Yes Current Status status: No Advance Directives: No Communicates: Verbally Primary Language: Croatian Preferred Spoken Language: Croatian Sensory deficits: Vision impairment Implanted or Applied Medical D: None Past Medical History Surgeries: Abdominal, Gallbladder, Hysterectomy, Orthopedic Asthma Currently Using CPAP: Yes Currently Using BIPAP: No 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 7.0oz. 83.719812gs; 33.24 BMI Method:Actual General Appearance: Mild Distress Respiratory: Chest Non Tender, Lungs Clear, Normal Breath Sounds, No Accessory Muscle Use, No Respiratory Distress Cardiovascular: Regular Rate, Rhythm, No Edema, No Gallop, No JVD, No Murmur, Normal Peripheral Pulses Gastrointestinal: Other (Bowel sounds present but hypoactive no evidence for abdominal distention mild epigastric discomfort to palpation no mass or org anomegaly noted. ) Extremity: Normal Inspection, Normal Range of Motion, Non Tender, No Calf Tenderness, No Pedal Edema Neurologic/Psychiatric: Alert, Oriented x3 Results Results/Procedures Labs Laboratory Tests 08/06/21 11:25 08/07/21 08:25 Patient resulted labs reviewed. Assessment/Plan Admission Diagnosis 1. Refractory vomiting with known diabetic gastroparesis continue IV fluids. There does appear to be secondary component of anticipatory anxiety aggravating her nausea and vomiting which Ativan has helped we will switch to a little longer acting benzodiazepine and did discuss the importance of using it as prescribed as there is a potential for habituation. Continue Zofran in addition. 2. Type 2 diabetes mellitus we will be holding a fair number of her medications for now. 3. Hypertension with significant blood pressure elevation but no evidence for organ damage will resume lisinopril continue as needed labetalol IV only for very severe blood pressure elevation above 200. Admission Status: Observation TRES TRACEY MD Aug 07, 2021 12:42
[2021-08-07] MEDS ORDERED: DIAZEPAM 5 MG (VALIUM) TABLET PO ONE (13:00)
[2021-08-07] MEDS ORDERED: lisINopril 20 MG (PRINIVIL) TABLET PO ONE (13:00)
[2021-08-07] MEDS ORDERED: PANTOPRAZOLE 40 MG (PROTONIX) VIAL IV ONE (13:00)
[2021-08-07] MEDS: fentaNYL INJ 100 MCG/2 ML AMP IVP PRN (17:15)
[2021-08-07] MEDS ORDERED: MIRTAZAPINE 15 MG (REMERON) TAB PO SCH (21:00)
[2021-08-07] MEDS: DIAZEPAM 5 MG (VALIUM) TABLET PO SCH (21:10)
[2021-08-07] MEDS ORDERED: lisINopril 20 MG (PRINIVIL) TABLET ONE (21:18)
[2021-08-07] MEDS: lisINopril 20 MG (PRINIVIL) TABLET PO SCH (21:22)
[2021-08-08] VITALS: BP 168/78
[2021-08-08] MEDS: NS IV 1000 ML 1,000 ML IV SCH (01:55)
[2021-08-08] MEDS: fentaNYL INJ 100 MCG/2 ML AMP IVP PRN (02:03)
[2021-08-08 04:00] VITALS: BP 149/69
[2021-08-08] MEDS: inSUlin ASPART (NovoLOG) 1 UNIT/0.01 ML (CHARGE PER UNIT) SC SCH (06:35)
[2021-08-08 08:24] VITALS: BP 166/98
[2021-08-08] MEDS ORDERED: PANTOPRAZOLE 40 MG (PROTONIX) VIAL IV SCH (09:00)
[2021-08-08] MEDS: ONDANSETRON 4 MG/2 ML (SDV) Z0FRAN IVP PRN (09:32)
[2021-08-08] MEDS: lisINopril 20 MG (PRINIVIL) TABLET PO SCH (09:55)
[2021-08-08] MEDS: DIAZEPAM 5 MG (VALIUM) TABLET PO SCH (09:55)
[2021-08-08] MEDS ORDERED: DIAZ5TAB49 PO ×2 (10:44)
--- NOTE | 2021-08-08 11:17 | Discharge Summary ---
Diagnosis/Chief Complaint Date of Admission Aug 06, 2021 at 15:05 Date of Discharge Discharge Date: Aug 08, 2021 Admission Diagnosis 1. Refractory vomiting with known diabetic gastroparesis continue IV fluids. There does appear to be secondary component of anticipatory anxiety aggravating her nausea and vomiting which Ativan has helped we will switch to a little longer acting benzodiazepine and did discuss the importance of using it as prescribed as there is a potential for habituation. Continue Zofran in addition. 2. Type 2 diabetes mellitus we will be holding a fair number of her medications for now. 3. Hypertension with significant blood pressure elevation but no evidence for organ damage will resume lisinopril continue as needed labetalol IV only for very severe blood pressure elevation above 200. Primary Care Self,Jorge BALL Discharge Summary Discharge Physical Exam Allergies: Coded Allergies: adhesive tape (Verified Allergy, Unknown, 07/29/21) chlorhexidine (Verified Allergy, Unknown, 07/29/21) fluvoxamine (Verified Allergy, Unknown, 07/29/21) hydromorphone (Verified Allergy, Unknown, 07/29/21) latex (Verified Allergy, Unknown, 07/29/21) meperidine (Verified Allergy, Unknown, 07/29/21) metoclopramide (Verified Allergy, Unknown, Tardive Dyskinesia, 07/29/21) morphine (Verified Allergy, Unknown, 07/29/21) promethazine (Verified Allergy, Unknown, 07/29/21) sulfamethoxazole (Verified Allergy, Unknown, 07/29/21) trimethoprim (Verified Allergy, Unknown, 07/29/21) Vitals & I&Os Vital Signs Date Time Temp Pulse Resp B/P (MAP) Pulse Ox O2 Delivery O2 Flow Rate FiO2 08/08/21 08:24 36.5 83 20 166/98 (120) 96 Room Air General Appearance: No Apparent Distress Respiratory: Chest Non Tender, Lungs Clear, Normal Breath Sounds, No Accessory Muscle Use, No Respiratory Distress Cardiovascular: Regular Rate, Rhythm, No Edema, No Gallop, No JVD, No Murmur, Normal Peripheral Pulses Gastrointestinal: No Organomegaly, Soft, Other (Bowel sounds present but hypoactive) Hospital Course Was the Problem List Reviewed?: Yes Patient was admitted to the hospital with refractory nausea and vomiting. This is 1 of several hospital admissions for this patient for similar circumstances with a history of diabetic gastroparesis. There did appear to be a rather significant component of anxiety and anticipatory anxiety so I did initiate diazepam 5 mg twice daily. There is no evidence for oversedation. Patient does not drink alcohol with no reported history of suicide. She was given 5 mg of diazepam to take every 12 hours #20 and want to discuss with her primary care provider whether or not it is worth continuing. She is strongly advised to return to see her silver steward in [place] to discuss other options for diabetic gastroparesis. She had no further vomiting was tolerating liquids and some solids without vomiting reported continuing a low level nausea worse in the morning which is not much different than her baseline. Labs (last 24 hrs) Laboratory Tests 08/07/21 16:44: Glucometer 86 08/07/21 21:11: Glucometer 101 08/08/21 03:34: Glucometer 173H 08/08/21 05:56: Glucometer 144H 08/08/21 10:49: Glucometer 132H Patient resulted labs reviewed. Pending Labs Laboratory Tests 08/08/21 03:34: Glucometer 173 08/08/21 05:56: Glucometer 144 08/08/21 10:49: Glucometer 132 Discussion & Recommendations Discharge Planning: <30 minutes discharge planning Discharge Home Medications: Active Scripts Active Diazepam 5 Mg Tablet 5 Mg PO BID 10 Days Prochlorperazine Maleate 10 Mg Tablet 10 Mg PO Q6H PRN 5 Days Potassium Chloride 20 Meq Tablet.er 20 Meq PO BID 21 Days BID x 1 week Daily x 2 week Novolog Flexpen (Insulin Aspart) 300 Units/3 Ml Solution 7 Units SQ AC Reported Probiotic (Lactobacillus Acidophilus) 1 Each Capsule 2 Each PO HS PRN Oxycodone HCl 5 Mg Tablet 5-10 Mg PO Q6H PRN Levemir Flextouch (Insulin Detemir) 100 Unit/1 Ml Insuln.pen 30 Unit SQ HS Breo Ellipta 100-25 Mcg INH (Fluticasone/Vilanterol) 1 Each Blst.w.dev 2 Puff IH DAILY Gvoke Hypopen 2-Pack (Glucagon) 1 Mg/0.2 Ml Auto.injct 1 Mg SC PRN Sucralfate 1 Gm Tablet 1 Gm PO QID 30 MINUTES BEFORE MEALS Hydroxyzine HCl 25 Mg Tablet 25 Mg PO Q8H PRN Cetirizine HCl 10 Mg Tablet 10 Mg PO HS Mirtazapine 45 Mg Tablet 45 Mg PO HS Fluticasone Propionate 16 Gm [place].susp 2 Sprays NA DAILY Lisinopril 10 Mg Tablet 10 Mg PO DAILY Promethegan (Promethazine HCl) 12.5 Mg Supp.rect 12.5 Mg DE BID PRN Metoprolol Tartrate 25 Mg Tablet 25 Mg PO DAILY Atorvastatin Calcium 10 Mg Tablet 10 Mg PO DAILY Promethazine HCl 50 Mg Tablet 25 Mg PO Q8H PRN Omeprazole 40 Mg Capsule.dr 40 Mg PO BID Ondansetron Odt (Ondansetron) 8 Mg Tab.rapdis 8 Mg PO Q8H PRN Trazodone HCl 150 Mg Tablet 300 Mg PO HS Iprat-Albut 0.5-3(2.5) mg/3 ml (Ipratropium/Albuterol Sulfate) 3 Ml Ampul.neb 3 Ml IH Q4H PRN Proair Hfa (Albuterol Sulfate) 1 Puff Puff 2 Puff IH Q4H PRN 1 PUFF = 90 MCG Instructions to patient/family Please see electronic discharge instructions given to patient. Copy Copies To 1: [facility]/EULALIA LAYTON MD Aug 08, 2021 11:17
[2021-08-09] MEDS ORDERED: PROM25TA14 PO (14:12)
== END 2021-08-08 11:53 | disposition home or self-care (01) ==
LOC: EDUNIT# 10:15 → ER FS 10:16 → 4TH 15:05
PROVIDERS: ADMIT Internal Medicine; ATTEND Internal Medicine
DX: E11.43 Type 2 diabetes mellitus with diabetic autonomic (poly)neuropathy (principal); K31.84 Gastroparesis; I10 Essential (primary) hypertension; E86.0 Dehydration; J45.909 Unspecified asthma, uncomplicated; K21.9 Gastro-esophageal reflux disease without esophagitis; F32.A Depression, unspecified; F17.210 Nicotine dependence, cigarettes, uncomplicated; F41.9 Anxiety disorder, unspecified; F25.9 Schizoaffective disorder, unspecified; Z79.899 Other long term (current) drug therapy; Z79.4 Long term (current) use of insulin; Z79.84 Long term (current) use of oral hypoglycemic drugs; Z93.4 Other artificial openings of gastrointestinal tract status; Z90.49 Acquired absence of other specified parts of digestive tract
CPT/HCPCS: 36415; 80048; 80053; 81000; 82947; 83690; 83735; 85007; 85025; 85027; 99281

== ENCOUNTER 2021-08-09 10:55 | Emergency (ER) | payer MEDICAID ==
[~2021-08-09] VITALS: Ht 157.5 cm; Wt 84.8 kg
[~2021-08-09 10:55] MED LIST changes: +ALB0.5V INH; +ATOR10TA66 PO; +CETI10TA17 PO; +DIAZ5TAB49 PO; +FLUT16SP22; +FLUT1AER IH; +GLUC1AUT2 SC; +HYDR-700 PO; +LACT1CAP62 PO; +MIRT45TA75 PO; +OMEP40CA6 PO; +ONDA8TAB13 PO; +OXYC5TAB PO; +PROM12.510 PR; +PROM50TA3 PO; +SUCR1TAB PO
[2021-08-09] MEDS ORDERED: NITROGLYCERIN 2% OINT 1 GM UNIT DOSE PACKET TOP ONE (11:00)
[2021-08-09] MEDS ORDERED: PROMETHAZINE INJ 25 MG/ML (PHENERGAN) AMP IVP ONE (11:00)
--- NOTE | 2021-08-09 11:12 | ED Chest Pain ---
General Chief Complaint: Chest Pain Stated Complaint: CHEST PAIN Source: patient, EMS Exam Limitations: no limitations History of Present Illness Date Seen by Provider: Aug 09, 2021 Time Seen by Provider: 10:57 Initial Comments 45-year-old female with past medical history of HTN, diabetes, gastroparesis with cyclical vomiting coming in via EMS from the urgent care due to chest pain. Was admitted to the hospital over the weekend due to cyclical vomiting and deh ydration. Discharged yesterday. She says her blood pressures have been elevated consistently since then. She typically takes lisinopril 10 mg every night, but they are giving her double the dose in the hospital. She says last night her systolic blood pressure was around 200 and she started having chest pain at that time. It is sharp, center of her chest, radiates to the left. Is been off and on since last night but constant for the past couple hours this morning. States she is to have pain like this all the time around 10 years ago which everything always was clear and she never had a heart attack or stents. Denies any history of DVT or PE. No recent surgery in the past couple months. Denies new cough, hemoptysis, shortness of breath, new abdominal pain, any changes to her nausea, diarrhea. Had a normal bowel movement this morning. Did not take aspirin today, and has been told that she should not due to the ulcer she has had in the past. Of note, she has chronic abdominal pain for which she has a fentanyl patch on which is unchanged. She has chronic nausea and vomiting which is around her baseline. The new thing today is her elevated blood pressure and her chest pain. She also had COVID about a month ago diagnosed here. Allergies and Home Medications Allergies Coded Allergies: adhesive tape (Verified Allergy, Unknown, 07/29/21) chlorhexidine (Verified Allergy, Unknown, 07/29/21) fluvoxamine (Verified Allergy, Unknown, 07/29/21) hydromorphone (Verified Allergy, Unknown, 07/29/21) latex (Verified Allergy, Unknown, 07/29/21) meperidine (Verified Allergy, Unknown, 07/29/21) metoclopramide (Verified Allergy, Unknown, Tardive Dyskinesia, 07/29/21) morphine (Verified Allergy, Unknown, 07/29/21) promethazine (Verified Allergy, Unknown, 07/29/21) sulfamethoxazole (Verified Allergy, Unknown, 07/29/21) trimethoprim (Verified Allergy, Unknown, 07/29/21) Patient Home Medication List Home Medication List Reviewed: Yes Albuterol Sulfate (Proair Hfa) 1 Puff Puff, 2 PUFF IH Q4H PRN for SHORTNESS OF BREATH, (Reported) Entered as Reported by: WILLIAN GARZA on 07/28/18 1032 Atorvastatin Calcium (Atorvastatin Calcium) 10 Mg Tablet, 10 MG PO DAILY, (Reported) Entered as Reported by: ADAN VALLADARES on 08/07/21 0200 Cetirizine HCl (Cetirizine HCl) 10 Mg Tablet, 10 MG PO HS, (Reported) Entered as Reported by: ADAN VALLADARES on 08/07/21 021 Diazepam (Diazepam) 5 Mg Tablet, 5 MG PO BID Prescribed by: EULALIA TRACEY on 08/08/21 1044 Fluticasone Propionate (Fluticasone Propionate) 16 Gm [place].susp, 2 SPRAYS NA DAILY, (Reported) Entered as Reported by: ADAN VALLADARES on 08/07/21 020 Fluticasone/Vilanterol (Breo Ellipta 100-25 Mcg INH) 1 Each Blst.w.dev, 2 PUFF IH DAILY, (Reported) Entered as Reported by: ADAN VALLADARES on 08/07/21 031 Glucagon (Gvoke Hypopen 2-Pack) 1 Mg/0.2 Ml Auto.injct, 1 MG SC for HYPOGLYCEMIA, (Reported) Entered as Reported by: ADAN VALLADARES on 08/07/21 031 Hydroxyzine HCl (Hydroxyzine HCl) 25 Mg Tablet, 25 MG PO Q8H PRN for ANXIETY, (Reported) Entered as Reported by: ADAN VALLADARES on 08/07/21 023 Insulin Aspart (Novolog Flexpen) 300 Units/3 Ml Solution, 7 UNITS SQ AC Prescribed by: BRIANA MOORE on 07/31/18 0955 Insulin Detemir (Levemir Flextouch) 100 Unit/1 Ml Insuln.pen, 30 UNIT SQ HS, (Reported) Entered as Reported by: ADAN VALLADARES on 08/07/21 031 Ipratropium/Albuterol Sulfate (Iprat-Albut 0.5-3(2.5) mg/3 ml) 3 Ml Ampul.neb, 3 ML IH Q4H PRN for SHORTNESS OF BREATH, (Reported) Entered as Reported by: WILLIAN GARZA on 07/28/18 1033 Lactobacillus Acidophilus (Probiotic) 1 Each Capsule, 2 EACH PO HS PRN for CONSTIPATION-1ST LINE, (Reported) Entered as Reported by: ADAN VALLADARES on 08/07/21 0332 Lisinopril (Lisinopril) 10 Mg Tablet, 10 MG PO DAILY, (Reported) Entered as Reported by: ADAN VALLADARES on 08/07/21 020 Metoprolol Tartrate (Metoprolol Tartrate) 25 Mg Tablet, 25 MG PO DAILY, (Reported) Entered as Reported by: ADAN VALLADARES on 08/07/21 020 Mirtazapine (Mirtazapine) 45 Mg Tablet, 45 MG PO HS, (Reported) Entered as Reported by: ADAN VALLADARES on 08/07/21 021 Omeprazole (Omeprazole) 40 Mg Capsule.dr, 40 MG PO BID, (Reported) Entered as Reported by: ADAN VALLADARES on 08/07/21 0156 Ondansetron (Ondansetron Odt) 8 Mg Tab.rapdis, 8 MG PO Q8H PRN for NAUSEA-1ST LINE, (Reported) Entered as Reported by: ADAN VALLADARES on 08/07/21 0154 Oxycodone HCl (Oxycodone HCl) 5 Mg Tablet, 5-10 MG PO Q6H PRN for PAIN-MODERATE (5-7), (Reported) Entered as Reported by: ADAN VALLADARES on 08/07/21 032 Potassium Chloride (Potassium Chloride) 20 Meq Tablet.er, 20 MEQ PO BID Prescribed by: SHERYL GREEN on 07/15/212004 Prochlorperazine Maleate (Prochlorperazine Maleate) 10 Mg Tablet, 10 MG PO Q6H PRN for NAUSEA/VOMITING-2ND LINE Prescribed by: RANULFO GOODIRCH on 07/29/21 0608 Promethazine HCl (Promethazine HCl) 50 Mg Tablet, 25 MG PO Q8H PRN for NAUSEA/VOMITING-2ND LINE, (Reported) Entered as Reported by: ADAN VALLADARSE on 08/07/21 0158 Promethazine HCl (Promethegan) 12.5 Mg Supp.rect, 12.5 MG UT BID PRN for NAUSEA/VOMITING-3RD LINE, (Reported) Entered as Reported by: ADAN VALLADARES on 08/07/21 0200 Trazodone HCl (Trazodone HCl) 150 Mg Tablet, 300 MG PO HS, (Reported) Entered as Reported by: WILLIAN GARZA on 07/28/18 1034 Discontinued Medications Acetaminophen (Acetaminophen Extra Strength) 500 Mg Tablet, 500 MG PO Q8H PRN for PAIN-BREAKTHROUGH, (Reported) Discontinued Reason: No Longer Taking Entered as Reported by: WILLIAN GARZA on 07/28/18 1037 Albuterol Sulfate (Albuterol Sulfate) 2.5 Mg/0.5 Ml Vial.neb, 2.5 MG INH Q4H, (Reported) Discontinued Reason: Duplicate Order Entered as Reported by: ADAN VALLADARES on 08/07/21 0315 Amlodipine Besylate (Amlodipine Besylate) 10 Mg Tablet, (Reported) Discontinued Reason: No Longer Taking Entered as Reported by: ASHLEY BAE on 10/14/19 1600 Amoxicillin/Potassium Clav (Amox Tr-K Clv 400-57/5 Susp) 400 Mg/5 Ml Susp.recon, (Reported) Discontinued Reason: No Longer Taking Entered as Reported by: ASHLEY BAE on 10/14/19 1600 Canagliflozin (Invokana) 100 Mg Tablet, (Reported) Discontinued Reason: No Longer Taking Entered as Reported by: ASHLEY BAE on 05/26/19 1416 Carvedilol (Carvedilol) 25 Mg Tablet, (Reported) Discontinued Reason: No Longer Taking Entered as Reported by: ASHLEY BAE on 10/14/19 1600 Clonidine HCl (Clonidine HCl) 0.1 Mg Tablet, (Reported) Discontinued Reason: No Longer Taking Entered as Reported by: ASHLEY BAE on 10/14/19 1600 Dicyclomine HCl (Dicyclomine HCl) 20 Mg Tablet, 20 MG PO BID Discontinued Reason: No Longer Taking Prescribed by: ALEXANDER HOSKINS on 01/14/20 1541 Fluconazole (Diflucan) 100 Mg Tablet, 100 MG PO DAILY Discontinued Reason: No Longer Taking Prescribed by: ALEXANDER HOSKINS on 03/13/20 1632 Insulin Detemir (Levemir Flextouch) 100 Unit/1 Ml Insuln.pen, 20 UNIT SQ HS Discontinued Reason: No Longer Taking Prescribed by: BRIANA MOORE on 07/31/18 0955 Ketorolac Tromethamine (Ketorolac Tromethamine) 10 Mg Tablet, 10 MG PO Q6H PRN for PAIN-MODERATE (5-7) Discontinued Reason: No Longer Taking Prescribed by: EULALIA LU MD on 06/29/19 1344 Lisinopril (Lisinopril) 20 Mg Tablet, 20 MG PO DAILY Discontinued Reason: Duplicate Order Prescribed by: BRIANA MOORE on 07/31/18 0955 Lisinopril (Lisinopril) 40 Mg Tablet, (Reported) Discontinued Reason: No Longer Taking Entered as Reported by: ASHLEY BAE on 10/14/19 1600 Metformin HCl (Metformin HCl ER) 750 Mg Tab.er.24h, 750 MG PO BID, (Reported) Discontinued Reason: No Longer Taking Entered as Reported by: WILLIAN GARZA on 07/28/18 1034 Metoclopramide HCl (Metoclopramide HCl) 10 Mg Tablet, 10 MG PO QID, (Reported) Discontinued Reason: No Longer Taking Entered as Reported by: WILLIAN GARZA on 07/28/18 1036 Omeprazole (Omeprazole) 20 Mg Capsule.dr, 20 MG PO HS, (Reported) Discontinued Reason: No Longer Taking Entered as Reported by: WILLIAN GARZA on 07/28/18 1035 Ondansetron (Ondansetron Odt) 4 Mg Tab.rapdis, 4 MG PO Q4H PRN for NAUSEA/VOMITING-1ST LINE, (Reported) Discontinued Reason: No Longer Taking Entered as Reported by: WILLIAN GARZA on 07/28/18 1036 Ondansetron (Ondansetron Odt) 4 Mg Tab.rapdis, 4 MG PO BID Discontinued Reason: No Longer Taking Prescribed by: ALEXANDER HOSKINS on 01/14/20 1541 Promethazine HCl (Promethazine Tablet) 25 Mg Tablet, 25 MG PO Q6H PRN for NAUSEA/VOMITING, (Reported) Discontinued Reason: No Longer Taking Entered as Reported by: WILLIAN GARZA on 07/28/18 1029 Promethazine HCl (Promethazine Tablet) 25 Mg Tablet, 25 MG PO Q6H PRN for NAUSEA/VOMITING-2ND LINE Discontinued Reason: No Longer Taking Prescribed by: MELVINA PRESSLEY on 12/17/18 1924 Promethazine HCl (Phenergan) 50 Mg Supp.rect, 50 MG RC BID PRN Discontinued Reason: No Longer Taking Prescribed by: HIREN VIZCARRA on 05/24/19 1331 Promethazine HCl (Promethazine Tablet) 25 Mg Tablet, 25 MG PO Q8H PRN for NAUSEA/VOMITING Discontinued Reason: Duplicate Order Prescribed by: RENY NAGY on 07/12/21 1520 Sucralfate (Carafate) 1 Gm Tablet, 1 GM PO QID Discontinued Reason: Duplicate Order Prescribed by: MELVINA PRESSLEY on 12/17/18 1924 Sucralfate (Sucralfate) 1 Gm Tablet, 1 GM PO QID, (Reported) Entered as Reported by: ADAN VALLADARES on 08/07/21 0241 Tramadol HCl (Tramadol HCl) 50 Mg Tablet, 50 MG PO Q6H PRN for PAIN-MILD, (Reported) Discontinued Reason: No Longer Taking Entered as Reported by: WILLIAN GARZA on 07/28/18 1030 Venlafaxine HCl (Venlafaxine HCl ER) 150 Mg Tab.er.24, 150 MG PO DAILY, (Reported) Discontinued Reason: No Longer Taking Entered as Reported by: WILLIAN GARZA on 07/28/18 1032 Review of Systems Review of Systems Constitutional: No chills, No fever EENTM: No Blurred Vision Respiratory: Denies Cough, Denies Shortness of Air Cardiovascular: Chest Pain Gastrointestinal: Abdominal Pain; Denies Diarrhea; Nausea, Vomiting Genitourinary: No Symptoms Reported Musculoskeletal: no symptoms reported Skin: no symptoms reported Psychiatric/Neurological: No Symptoms Reported Endocrine: No Symptoms Reported Hematologic/Lymphatic: No Symptoms Reported All Other Systems Reviewed Negative Unless Noted: Yes Past Ggfvtxu-Szakkb-Xpbyfa Hx Patient Social History Tobacco Use?: No Immunizations Up To Date First/Initial COVID19 Vaccinat: MODERNA Second COVID19 Vaccination Guy: DAIJA Seasonal Allergies Seasonal Allergies: Yes Past Medical History Surgery/Hospitalization HX: Gastroparesis, chronic abdominal wound infection with MRSA, jejunostomy tube October 2019, gastric stimulator, pyloroplasty, cholecystectomy, hysterectomy, orthopedics Surgeries: Yes Abdominal, Gallbladder, Hysterectomy, Orthopedic Respiratory: Yes Asthma Currently Using CPAP: Yes Currently Using BIPAP: No Cardiac: No Neurological: No Female 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 Sexually Transmitted Disease: No HIV/AIDS: No Genitourinary: No Gastrointestinal: Yes (Gastroparesis, hepatitis C, cyclic vomiting) Gastroesophageal Reflux, Chronic Diarrhea, Hepatitis, Ulcer Musculoskeletal: No Endocrine: Yes Diabetes, Insulin dep HEENT: Yes (wears glasses) Hearing Impairment: Denies Cancer: No Psychosocial: Yes (Schizoaffective disorder) Anxiety, Depression Integumentary: No Blood Disorders: No Physical Exam Vital Signs Vital Signs - First Documented 08/09/21 10:55 Temp 36.1 Pulse 79 Resp 15 B/P (MAP) 151/90 (110) O2 Delivery Room Air Capillary Refill : Height, Weight, BMI Height: 5'2.00" Weight: 184lbs. 7.0oz. 83.342484fq; 33.24 BMI Method:Actual General Appearance: No Apparent Distress HEENT: PERRL/EOMI, Normal ENT Inspection, Pharynx Normal Neck: Full Range of Motion, Normal Inspection, Non Tender, Supple Respiratory: Chest Non Tender, Lungs Clear, Normal Breath Sounds, No Accessory Muscle Use, No Respiratory Distress Cardiovascular: Regular Rate, Rhythm, No Edema, Normal Peripheral Pulses Gastrointestinal: Normal Bowel Sounds, Non Tender, Soft; No Distended, No Guarding; Other (Abdominal wound is clean, dry, and no signs of infection) Extremity: Normal Capillary Refill, Normal Inspection, Normal Range of Motion, Non Tender, No Calf Tenderness Neurologic/Psychiatric: Alert, No Motor/Sensory Deficits, Normal Mood/Affect Skin: Normal Color, Warm/Dry Lymphatic: No Adenopathy Progress/Results/Core Measures Results/Orders Lab Results Laboratory Tests Test 08/09/21 11:01 08/09/21 13:23 Range/Units White Blood Count 9.9 4.3-11.0 10^3/uL Red Blood Count 4.19 3.80-5.11 10^6/uL Hemoglobin 12.7 11.5-16.0 g/dL Hematocrit 37 35-52 % Mean Corpuscular Volume 88 80-99 fL Mean Corpuscular Hemoglobin 30 25-34 pg Mean Corpuscular Hemoglobin Concent 35 32-36 g/dL Red Cell Distribution Width 14.2 10.0-14.5 % Platelet Count 206 130-400 10^3/uL Mean Platelet Volume 10.0 9.0-12.2 fL Immature Granulocyte % (Auto) 0 % Neutrophils (%) (Auto) 80 H 42-75 % Lymphocytes (%) (Auto) 14 12-44 % Monocytes (%) (Auto) 5 0-12 % Eosinophils (%) (Auto) 1 0-10 % Basophils (%) (Auto) 0 0-10 % Neutrophils # (Auto) 7.9 H 1.8-7.8 10^3/uL Lymphocytes # (Auto) 1.4 1.0-4.0 10^3/uL Monocytes # (Auto) 0.5 0.0-1.0 10^3/uL Eosinophils # (Auto) 0.1 0.0-0.3 10^3/uL Basophils # (Auto) 0.0 0.0-0.1 10^3/uL Immature Granulocyte # (Auto) 0.0 0.0-0.1 10^3/uL Prothrombin Time 14.0 12.2-14.7 SEC INR Comment 1.0 0.8-1.4 Activated Partial Thromboplast Time 26 24-35 SEC Sodium Level 139 135-145 MMOL/L Potassium Level 3.6 3.6-5.0 MMOL/L Chloride Level 103 98-107 MMOL/L Carbon Dioxide Level 23 21-32 MMOL/L Anion Gap 13 5-14 MMOL/L Blood Urea Nitrogen 5 L 7-18 MG/DL Creatinine 0.59 L 0.60-1.30 MG/DL Estimat Glomerular Filtration Rate 113 BUN/Creatinine Ratio 8 Glucose Level 183 H 70-105 MG/DL Calcium Level 9.1 8.5-10.1 MG/DL Corrected Calcium 9.3 8.5-10.1 MG/DL Magnesium Level 1.6 1.6-2.4 MG/DL Total Bilirubin 0.4 0.1-1.0 MG/DL Aspartate Amino Transf (AST/SGOT) 15 5-34 U/L Alanine Aminotransferase (ALT/SGPT) 9 0-55 U/L Alkaline Phosphatase 62 40-136 U/L Troponin I < 0.30 < 0.30 <0.30 NG/ML Pro-B-Type Natriuretic Peptide 339.9 H <75.0 PG/ML Total Protein 6.8 6.4-8.2 GM/DL Albumin 3.8 3.2-4.5 GM/DL Lipase 27 8-78 U/L My Orders Orders - RENALDO EDWARDS MD Cbc With Automated Diff (08/09/21 10:59) Magnesium (08/09/21 10:59) Chest 1 View Ap/Pa Only (08/09/21 10:59) Ekg Tracing (08/09/21 10:59) Comprehensive Metabolic Panel (08/09/21 10:59) Protime With Inr (08/09/21 10:59) Partial Thromboplastin Time (08/09/21 10:59) O2 (08/09/21 10:59) Monitor-Rhythm Ecg Trace Only (08/09/21 10:59) Ed Iv/Invasive Line Start (08/09/21 10:59) Lipase (08/09/21 10:59) Troponin I Fs (08/09/21 10:59) Probnp Fs (08/09/21 10:59) Promethazine Injection (Phenergan Injec (08/09/21 11:00) Nitroglycerin Ointment (Nitrobid Ointme (08/09/21 11:00) Lactated Ringers (Lr 1000 Ml Iv Solution (08/09/21 11:15) Troponin I Fs (08/09/21 12:50) Medications Given in ED Current Medications Medications Dose Ordered Sig/Faiza Route Start Time Stop Time Status Last Admin Dose Admin Nitroglycerin 1 inch ONCE ONCE TOP 08/09/21 11:00 08/09/21 11:01 DC 08/09/21 11:20 1 INCH Promethazine HCl 25 mg ONCE ONCE IVP 08/09/21 11:00 08/09/21 11:01 DC 08/09/21 11:20 25 MG Vital Signs/I&O 08/09/21 10:55 Temp 36.1 Pulse 79 Resp 15 B/P (MAP) 151/90 (110) O2 Delivery Room Air Progress Progress Note : Progress Note 45-year-old female with above history coming in due to hypertension and chest pain. ABCs were intact and vitals were stable on presentation although she is hypertensive. Nitropaste was applied for her chest pain as well as elevated blood pressure. She was also given a bolus of IV fluids and Phenergan for her constant nausea vomiting. Her symptoms essentially completely went away after these interventions. EKG without acute ischemic changes. Chest x-ray with no acute findings. Troponin negative x2. Continues to be well-appearing and asymptomatic. I believe she is stable for discharge with outpatient follow-up. She was sent home with strict return precautions. Initial ECG Impression Date: Aug 09, 2021 Initial ECG Impression Time: 10:55 Initial ECG Rate: 71 Initial ECG Rhythm: Normal Sinus Comment Narrow QRS, normal axis, no significant ST changes or T wave abnormalities Diagnostic Imaging Diagonstic Imaging: Xray (chest) Comments [facility] [place] NAME: SAV TINOCO [facility] REC#: [id number] PT STATUS: REG ER : 1975 PHYSICIAN: RENALDO EDWARDS MD ADMIT DATE: 08/09/21/ER FS Draft Date of Exam:08/09/21 CHEST 1 VIEW AP/PA ONLY INDICATION: Chest pain. TIME OF EXAM: 11:13 a.m. COMPARISON: Correlation is made with prior chest from 07/15/2021. FINDINGS: The heart size is normal. The pulmonary vascularity is unremarkable. The lungs are clear. No infiltrate, effusion or pneumothorax is detected. IMPRESSION: No acute cardiopulmonary process is detected. Dictated on workstation # [id number] Dict: 08/09/21 1125 Trans: 08/09/21 1128 [id number] Interpreted by: RORY NORTH MD Electronically signed by: Departure Impression Primary Impression: Chest pain Qualified Codes: R07.9 - Chest pain, unspecified Additional Impression: Hypertension Qualified Codes: I10 - Essential (primary) hypertension Disposition: 01 HOME, SELF-CARE Condition: Stable Departure-Patient Inst. Decision time for Depature: 14:11 Referrals: SELFVIKY MD (PCP/Family) Primary Care Physician Patient Instructions: Chest Pain, Adult ED Add. Discharge Instructions: Your labs look good and it does not look like you are having a heart attack. Please follow-up with your regular doctor and likely increase your blood press ure medicine. I do recommend taking lisinopril 20 mg daily until you are able to follow-up. Take the Nitropaste off tonight when you take your blood pressure medicine Scripts Promethazine HCl (Promethazine Tablet) 25 Mg Tablet 25 MG PO Q6H PRN for NAUSEA/VOMITING for 6 Days, #24 TAB Prov: RENALDO EDWARDS MD 08/09/21 RENALDO EDWARDS MD Aug 09, 2021 11:12
[2021-08-09] MEDS ORDERED: LACTATED RINGERS 1,000 ML IV SCH (11:15)
[2021-08-09 11:23] LABS: BASOPHILS % (AUTO) 0 % (0-10); EOSINOPHILS # (AUTO) 0.1 10^3/uL (0.0-0.3); EOSINOPHILS % (AUTO) 1 % (0-10); HEMATOCRIT 37 % (35-52); HEMOGLOBIN 12.7 g/dL (11.5-16.0); LYMPHOCYTES # (AUTO) 1.4 10^3/uL (1.0-4.0); LYMPHOCYTES % (AUTO) 14 % (12-44); MEAN CORPUSCULAR HEMOGLOBIN 30 pg (25-34); MEAN CORPUSCULAR HGB CONC 35 g/dL (32-36); MEAN CORPUSCULAR VOLUME 88 fL (80-99); MONOCYTES # (AUTO) 0.5 10^3/uL (0.0-1.0); MONOCYTES % (AUTO) 5 % (0-12); NEUTROPHILS # (AUTO) 7.9 10^3/uL (1.8-7.8); NEUTROPHILS % (AUTO) 80 % (42-75); PLATELET COUNT 206 10^3/uL (130-400); WHITE BLOOD COUNT 9.9 10^3/uL (4.3-11.0)
--- NOTE | 2021-08-09 11:28 | Diagnostic Imaging Report ---
INDICATION: Chest pain. TIME OF EXAM: 11:13 a.m. COMPARISON: Correlation is made with prior chest from 07/15/2021. FINDINGS: The heart size is normal. The pulmonary vascularity is unremarkable. The lungs are clear. No infiltrate, effusion or pneumothorax is detected. IMPRESSION: No acute cardiopulmonary process is detected. Dictated by: Dictated on workstation # [id number]
[2021-08-09 11:46] LABS: BILIRUBIN,TOTAL 0.4 MG/DL (0.1-1.0); CALCIUM 9.1 MG/DL (8.5-10.1); CREATININE SERUM 0.59 MG/DL (0.60-1.30); MAGNESIUM 1.6 MG/DL (1.6-2.4); POTASSIUM 3.6 MMOL/L (3.6-5.0); TOTAL PROTEIN 6.8 GM/DL (6.4-8.2)
[2021-08-09 11:47] LABS: ALBUMIN 3.8 GM/DL (3.2-4.5)
[2021-08-09] MEDS ORDERED: PROM25TA14 PO (14:12)
[2021-08-09 14:25] VITALS: BP 142/83
== END 2021-08-09 14:25 | disposition home or self-care (01) ==
LOC: EDUNIT# 10:56 → ER FS 10:57
DX: I10 Essential (primary) hypertension (principal); E11.43 Type 2 diabetes mellitus with diabetic autonomic (poly)neuropathy; K31.84 Gastroparesis; J45.909 Unspecified asthma, uncomplicated; K21.9 Gastro-esophageal reflux disease without esophagitis; F41.9 Anxiety disorder, unspecified; F32.A Depression, unspecified; Z91.040 Latex allergy status; Z86.16 Personal history of COVID-19; Z79.84 Long term (current) use of oral hypoglycemic drugs; Z79.4 Long term (current) use of insulin; Z79.51 Long term (current) use of inhaled steroids; Z79.899 Other long term (current) drug therapy
CPT/HCPCS: 36415; 71045; 80053; 83690; 83735; 83880; 84484; 85025; 85610; 85730; 93005; 93041

== ENCOUNTER → 2021-08-10 | Outpatient (CLI) | payer MEDICAID | LOC: WOUNDCARE 12:43 | PROVIDERS: ATTEND Family Medicine | DX: S31.102A Unspecified open wound of abdominal wall, epigastric region without penetration into peritoneal cavity, initial encounter (principal); T81.31XA Disruption of external operation (surgical) wound, not elsewhere classified, initial encounter; E11.52 Type 2 diabetes mellitus with diabetic peripheral angiopathy with gangrene; E11.622 Type 2 diabetes mellitus with other skin ulcer; E66.01 Morbid (severe) obesity due to excess calories; E11.43 Type 2 diabetes mellitus with diabetic autonomic (poly)neuropathy; K31.84 Gastroparesis; B18.2 Chronic viral hepatitis C; L02.211 Cutaneous abscess of abdominal wall; L98.492 Non-pressure chronic ulcer of skin of other sites with fat layer exposed; Z68.35 Body mass index [BMI] 35.0-35.9, adult | CPT/HCPCS: 11042 ==

== ENCOUNTER → 2021-08-16 | Outpatient (CLI) | payer MEDICAID | LOC: WOUNDCARE 13:49 | PROVIDERS: ATTEND Family Medicine | DX: S31.102A Unspecified open wound of abdominal wall, epigastric region without penetration into peritoneal cavity, initial encounter (principal); T81.31XA Disruption of external operation (surgical) wound, not elsewhere classified, initial encounter; L98.492 Non-pressure chronic ulcer of skin of other sites with fat layer exposed; E11.622 Type 2 diabetes mellitus with other skin ulcer; E66.01 Morbid (severe) obesity due to excess calories; E11.43 Type 2 diabetes mellitus with diabetic autonomic (poly)neuropathy; K31.84 Gastroparesis; B18.2 Chronic viral hepatitis C; L02.211 Cutaneous abscess of abdominal wall; E11.52 Type 2 diabetes mellitus with diabetic peripheral angiopathy with gangrene | CPT/HCPCS: 11042 ==

== ENCOUNTER → 2021-08-23 | Outpatient (CLI) | payer MEDICAID | LOC: WOUNDCARE 13:41 | PROVIDERS: ATTEND Family Medicine | DX: E11.52 Type 2 diabetes mellitus with diabetic peripheral angiopathy with gangrene (principal); E11.622 Type 2 diabetes mellitus with other skin ulcer; I96 Gangrene, not elsewhere classified; S31.102A Unspecified open wound of abdominal wall, epigastric region without penetration into peritoneal cavity, initial encounter; T81.31XA Disruption of external operation (surgical) wound, not elsewhere classified, initial encounter; L98.492 Non-pressure chronic ulcer of skin of other sites with fat layer exposed; E66.01 Morbid (severe) obesity due to excess calories; E11.43 Type 2 diabetes mellitus with diabetic autonomic (poly)neuropathy; K31.84 Gastroparesis; B18.2 Chronic viral hepatitis C; L02.211 Cutaneous abscess of abdominal wall; B37.2 Candidiasis of skin and nail; Z68.35 Body mass index [BMI] 35.0-35.9, adult | CPT/HCPCS: 11042 ==

== ENCOUNTER → 2021-08-30 | Outpatient (CLI) | payer MEDICAID | LOC: WOUNDCARE 13:22 | PROVIDERS: ATTEND Family Medicine | DX: S31.102A Unspecified open wound of abdominal wall, epigastric region without penetration into peritoneal cavity, initial encounter (principal); T81.31XA Disruption of external operation (surgical) wound, not elsewhere classified, initial encounter; L98.492 Non-pressure chronic ulcer of skin of other sites with fat layer exposed; E11.622 Type 2 diabetes mellitus with other skin ulcer; E66.01 Morbid (severe) obesity due to excess calories; K31.84 Gastroparesis; B18.2 Chronic viral hepatitis C; L02.211 Cutaneous abscess of abdominal wall; B37.2 Candidiasis of skin and nail; E11.52 Type 2 diabetes mellitus with diabetic peripheral angiopathy with gangrene | CPT/HCPCS: 11042 ==

== ENCOUNTER → 2021-09-06 | Outpatient (CLI) | payer MEDICAID ==
[~2021-09-06] MED LIST changes: +CATHETER FLUSH 10 ML SYR IV PRN; +FENT1PAT8 TD; +FLUC100T10 PO; +HOLD METFORMIN - RECEIVED CONTRAST 20 ML VIAL IV SCH; +IOHEXOL 350 MG/ML 100 ML (OMNIPAQUE 350) VIAL IV ONE; +LIDO6JEL MM; +LUBI24CA8 PO; +MUPI1OIN6 TP; +NS 100 ML (IVPB) BAG IV ONE; +[UNRECOGNIZED DRUG - CODE]
--- NOTE | 2021-09-06 10:43 | Diagnostic Imaging Report ---
Procedure: CT abdomen with contrast only. Technique: Multiple contiguous axial images were obtained through the abdomen after the administration of intravenous contrast. Auto Exposure Controls were utilized during the CT exam to meet ALARA standards for radiation dose reduction. Date: September 06, 2021. Indication: 45-year-old female, abdominal pain. Concern for subcutaneous abscess. Comparison: CT abdomen and pelvis July 25, 2021. Findings: The visualized portions of the lung bases are clear. The heart is not enlarged. There is no pericardial effusion. The liver is unremarkable in size and contour. There is no identified liver lesion. The main, right, and left portal veins are patent. The gallbladder surgically absent. The common bile duct measures up to 8 mm in diameter. This is unchanged since the comparison study. There is no CT apparent common bile duct stone, ampullary mass, or pancreatic mass. The main pancreatic duct is not abnormally dilated. There is no intrahepatic bile duct dilation. The spleen is normal in size. The adrenal glands are unremarkable. Unremarkable appearance of the renal parenchyma. The urinary collecting systems are not distended in their imaged extent. The intestinal tract is normal in caliber in its imaged extent. There is no free intraperitoneal air. There is fluid attenuation in the anterior abdominal wall, subcutaneous tissues extending from the region of the umbilicus to the right anterior abdominal wall and a region of a skin contour abnormality and potential skin defect. Underlying the skin defect, there is a focal gas and fluid containing area measuring roughly 5.6 x 1.4 cm an axial extent and 3.1 cm in craniocaudal extent. There are atherosclerotic calcifications. There is no identified abnormally enlarged lymph node in the abdomen meeting size criteria for adenopathy. There is no identified acute bony abnormality. Impression: 1. Focal gas and fluid containing area in the anterior abdominal wall to the right of midline most compatible with abscess measuring 5.6 x 1.4 x 3.1 cm in size. This is underlying site of the skin contour abnormality/defect. 2. No additional identified acute abnormality specifically within the abdominal cavity. Dictated by: Dictated on workstation # [id number]
== END ==
LOC: RAD FS 09:32
PROVIDERS: ATTEND Family Medicine
DX: S31.102A Unspecified open wound of abdominal wall, epigastric region without penetration into peritoneal cavity, initial encounter (principal); X58.XXXA Exposure to other specified factors, initial encounter
CPT/HCPCS: 74160; Q9967

== ENCOUNTER → 2021-09-06 | Outpatient (CLI) | payer MEDICAID ==
[~2021-09-06] MED LIST changes: -CATHETER FLUSH 10 ML SYR IV PRN; -HOLD METFORMIN - RECEIVED CONTRAST 20 ML VIAL IV SCH; -IOHEXOL 350 MG/ML 100 ML (OMNIPAQUE 350) VIAL IV ONE; -NS 100 ML (IVPB) BAG IV ONE
== END ==
LOC: WOUNDCARE 13:17
PROVIDERS: ATTEND Family Medicine
DX: S31.102A Unspecified open wound of abdominal wall, epigastric region without penetration into peritoneal cavity, initial encounter (principal); T81.31XA Disruption of external operation (surgical) wound, not elsewhere classified, initial encounter; L98.492 Non-pressure chronic ulcer of skin of other sites with fat layer exposed; E11.622 Type 2 diabetes mellitus with other skin ulcer; E66.01 Morbid (severe) obesity due to excess calories; E11.43 Type 2 diabetes mellitus with diabetic autonomic (poly)neuropathy; K31.84 Gastroparesis; E11.52 Type 2 diabetes mellitus with diabetic peripheral angiopathy with gangrene; B18.2 Chronic viral hepatitis C; L02.211 Cutaneous abscess of abdominal wall; B37.2 Candidiasis of skin and nail; Z68.35 Body mass index [BMI] 35.0-35.9, adult
CPT/HCPCS: 11042

== ENCOUNTER → 2021-09-09 | Outpatient (CLI) | payer MEDICAID ==
[~2021-09-09] VITALS: Ht 160 cm; Wt 91.0 kg
== END | disposition home or self-care (01) ==
LOC: PREOP 09:17
PROVIDERS: ATTEND Surgery
DX: Z01.818 Encounter for other preprocedural examination (principal)

== ENCOUNTER 2021-09-10 11:04 | Day surgery (SDC) | payer MEDICAID ==
[2021-09-10] VITALS (16 sets, daily range): BP systolic 110–156; BP diastolic 62–88
[~2021-09-10] VITALS: Ht 160 cm; Wt 91.0 kg
[2021-09-10] MEDS ORDERED: LACTATED RINGERS 1,000 ML IV PRN (11:15)
[2021-09-10] MEDS ORDERED: VANCOMYCIN INJECTION 1,000 MG in NS (IVPB) 250 ML IV ONE (11:15)
--- NOTE | 2021-09-10 13:22 | Progress Note-Pre Operative ---
Pre-Operative Progress Note H&P Reviewed The H&P was reviewed, patient examined and no changes noted. Date Seen by Provider: Sep 10, 2021 Time Seen by Provider: 13:22 Date H&P Reviewed: Sep 10, 2021 Time H&P Reviewed: 13:22 Pre-Operative Diagnosis: abdominal wound/abscess JOHN ESTRELLA DO Sep 10, 2021 13:22
[2021-09-10] MEDS ORDERED: MIDAZOLAM 2 MG/2 ML (VERSED) VIAL ONE (13:25)
[2021-09-10] MEDS ORDERED: fentaNYL INJ 100 MCG/2 ML AMP ONE ×2 (13:25→14:49)
[2021-09-10] MEDS ORDERED: ONDANSETRON 4 MG/2 ML (SDV) Z0FRAN IV ONE (13:30)
[2021-09-10] MEDS ORDERED: proPOfol 200 MG/20 ML (DIPRIVAN) VIAL IV ONE (14:14)
[2021-09-10] MEDS ORDERED: ROCURONIUM 10 MG/ML 5 ML SYRINGE IV ONE (14:14)
[2021-09-10] MEDS ORDERED: ONDANSETRON 4 MG/2 ML (SDV) Z0FRAN ONE ×2 (14:14→14:49)
[2021-09-10] MEDS ORDERED: LIDOCAINE PF 2% 5 ML (XYLOCAINE) VIAL ONE (14:14)
--- NOTE | 2021-09-10 14:29 | Discharge Inst-Simple/Standard ---
Discharge Inst-Standard Patient Instructions/Follow Up Plan of Care/Instructions/FU: 2-3 weeks polo Keep your appointment with wound care. Activity as Tolerated: Yes Discharge Diet: Regular Diet Other Inst to Patient Follow up Appt: Make appointment for 2-3 week Polo. Keep your appointment with wound care Dr. Urena. Instructions: No strenuous activity. May shower in 24 hours, no tub bath or soaking. Use incentive spirometer at home as directed. No Smoking Skin/Wound Care: Irrigate and pack with Kerlex soaked betadine wet to dry daily and as needed. Symptoms to Report: Appetite Changes, Extremity Discoloration, Numbness/Tingling, Swelling Increased, Bleeding Excessive, Eyesight Changes, Pain Increased, Urine Color Change, Constipation(Persistent), Fever over 101 degree F, Pain/Pressure in chest, Urinating Difficulty, Cough Up/Vomit Blood, Heart Beat Irreg/Pounding, Pain/Pressure in jaw, Vaginal Bleeding Increase, Cramps in feet or legs, Li ghtheadedness, Pain/Pressure in shoulder, Diarrhea(Persistent), Memory Changes Suddenly, Questions/Concerns, Weight gain consecutive days, Dizziness/Fainting, Nausea/Vomiting, Shortness of Breath, Weight gain over 2 pounds If questions or concerns contact your physician Or seek help at emergency department. JOHN ESTRELLA DO Sep 10, 2021 14:29
[2021-09-10] MEDS ORDERED: NEOSTIGMINE 3 MG/3 ML VIAL ONE (14:30)
[2021-09-10] MEDS ORDERED: GLYCOPYRROLATE 0.2 MG/ML (ROBINUL) 2 ML VIAL ONE (14:30)
[2021-09-10] MEDS ORDERED: KETOROLAC 30 MG/ML VIAL ONE (14:31)
--- NOTE | 2021-09-10 14:31 | Progress Note-Post Operative ---
Post-Operative Progess Note Surgeon (s)/Service Unit Operator (s) Surgeon JOHN ESTRELLA DO Service Unit Operator: na Pre-Operative Diagnosis abdominal wound/abscess Post-Operative Diagnosis abdominal wall cavity with tunneling Procedure & Operative Findings Date of Procedure 09/10/21 Procedure Performed/Findings excision of skin and subcutaneous tissue of abdominal wall cavity 11x9x3 cm Anesthesia Type general Estimated Blood Loss Estimated blood loss (mL): minimal Specimens/Packing Specimens Removed abdominal wall cavity skin and subcutaneous tissue Packing: Kerlex/betadine JOHN ESTRELLA DO Sep 10, 2021 14:31
[2021-09-10] MEDS ORDERED: fentaNYL INJ 100 MCG/2 ML AMP IVP ONE (15:00)
[2021-09-10] MEDS ORDERED: PROMETHAZINE INJ 25 MG/ML (PHENERGAN) AMP IVP ONE (15:00)
[2021-09-10] MEDS ORDERED: ONDANSETRON 4 MG/2 ML (SDV) Z0FRAN IVP PRN (15:00)
--- NOTE | 2021-09-10 21:02 | OPERATIVE REPORT ---
DATE OF SERVICE: 09/10/2021 PREOPERATIVE DIAGNOSIS: Abdominal wound/abscess. POSTOPERATIVE DIAGNOSIS: Abdominal wound with cavity. PROCEDURE: Excision of skin and subcutaneous tissue of abdominal wall cavity, 11 x 9 x 3 cm. SURGEON: John Davis DO ANESTHESIA: General. ESTIMATED BLOOD LOSS: Minimal. COMPLICATIONS: None. INDICATIONS: The patient is a 46-year-old female who has had significant medical history due to placement and removal of two gastric pacemakers. She has had chronic infections and difficulty at her wounds. The patient has had multiple abscesses where she has not felt well and she has been feeling worse. She had a CT scan performed, which demonstrated collection in the right portion of her abdomen in the upper portion that has concern for features of an infection, abscess and where an open wound is present as well. She also has tolerated this area with wound care and I discussed with Dr. Urena by performing further intervention to this area to help resolve the tunneling and likely help heal faster. The patient understands all risks and benefits of procedure and wishes to proceed. Consent was signed in the chart. DESCRIPTION OF PROCEDURE: The patient was taken to the operating room. She was prepped and draped in sterile fashion. Timeout was performed. The wound had slight packing material deep in the tract, which was removed. A 15-blade scalpel was used to make a skin incision incorporating a small portion around the open wound. Cautery was then used to dissect around removing some skin around the wound and the subcutaneous tissues. Abdominal cavity was present, which I placed my fingers within the cavity to help guide dissection and removing this in its entirety. No purulent material was encountered, but she did have significant tunneling towards the midline, which all of this was opened further and excising chronic changes of tissue as well. Once removed, no other sites of concerning tissue were present except for slight area of the fascia, which the fascia had a small opening made in it to where the area could be inspected. No pathology noted. A 3-0 Vicryl suture was used to close this in a [id number] fashion. The wound was cultured. The wound was irrigated with copious amounts of irrigation and wound was then packed with Kerlix/Betadine wet to dry and sterile bandage was applied. The patient tolerated the procedure well without any complications. She was taken to recovery room in stable condition. The patient will follow up with wound care on Monday for further management as to help continue with her treatment plan. The patient will need daily dressings of Kerlix and Betadine until that time. Job ID: [id number] DocumentID: [id number] Dictated Date: 09/10/2021 20:16:21 [employer] Date: 09/10/2021 21:01:13 Dictated By: JOHN DAVIS DO
== END 2021-09-10 16:55 ==
LOC: SDC 11:04
PROVIDERS: ATTEND Surgery
DX: S31.100A Unspecified open wound of abdominal wall, right upper quadrant without penetration into peritoneal cavity, initial encounter (principal); L02.211 Cutaneous abscess of abdominal wall; K31.84 Gastroparesis; F17.210 Nicotine dependence, cigarettes, uncomplicated; Z79.82 Long term (current) use of aspirin; Z79.899 Other long term (current) drug therapy; Z80.51 Family history of malignant neoplasm of kidney; Z98.890 Other specified postprocedural states
CPT/HCPCS: 82947; 87070; 87075; 87077; 87081; 87101; 87186; 87205

== ENCOUNTER → 2021-09-13 | Outpatient (CLI) | payer MEDICAID | LOC: WOUNDCARE 13:05 | PROVIDERS: ATTEND Family Medicine | DX: S31.102A Unspecified open wound of abdominal wall, epigastric region without penetration into peritoneal cavity, initial encounter (principal); T81.31XA Disruption of external operation (surgical) wound, not elsewhere classified, initial encounter; L98.492 Non-pressure chronic ulcer of skin of other sites with fat layer exposed; E11.622 Type 2 diabetes mellitus with other skin ulcer; E66.01 Morbid (severe) obesity due to excess calories; E11.43 Type 2 diabetes mellitus with diabetic autonomic (poly)neuropathy; K31.84 Gastroparesis; E11.52 Type 2 diabetes mellitus with diabetic peripheral angiopathy with gangrene; B18.2 Chronic viral hepatitis C; L02.211 Cutaneous abscess of abdominal wall; Z68.35 Body mass index [BMI] 35.0-35.9, adult | CPT/HCPCS: 11042 ==

== ENCOUNTER → 2021-09-14 | Outpatient (CLI) | payer MEDICAID ==
[2021-09-14 18:39] LABS: BILIRUBIN,URINE NEGATIVE (NEGATIVE); CLARITY,URINE CLEAR; COLOR,URINE YELLOW; GLUCOSE, URINE (UA) NEGATIVE (NEGATIVE); KETONES,URINE NEGATIVE (NEGATIVE); LEUKOCYTE ESTERASE ,URINE NEGATIVE (NEGATIVE); NITRITE,URINE NEGATIVE (NEGATIVE); PH,URINE 6.5 (5-9); PROTEIN,URINE NEGATIVE (NEGATIVE)
[2021-09-14 19:01] LABS: BACTERIA,URINE FEW /HPF; SQUAMOUS EPITHELIAL CELL,UR 0-2 /HPF; WBC,URINE RARE /HPF
== END ==
LOC: IHC 17:15
PROVIDERS: ATTEND Family Medicine
DX: T81.31XD Disruption of external operation (surgical) wound, not elsewhere classified, subsequent encounter (principal)
CPT/HCPCS: 81000

== ENCOUNTER → 2021-09-16 | Outpatient (CLI) | payer MEDICAID ==
[~2021-09-16] VITALS: Ht 167.4 cm; Wt 91.0 kg
[~2021-09-16] MED LIST changes: +VANCOMYCIN 1500 MG/NS 500 ML IVPB IV NR
[2021-09-16 12:25] VITALS: BP 126/70
== END ==
LOC: SDC 12:16
PROVIDERS: ATTEND Family Medicine
DX: S31.102A Unspecified open wound of abdominal wall, epigastric region without penetration into peritoneal cavity, initial encounter (principal); T81.31XA Disruption of external operation (surgical) wound, not elsewhere classified, initial encounter
CPT/HCPCS: 36569; 76937; 96365; 96366

== ENCOUNTER → 2021-09-20 | Outpatient (CLI) | payer MEDICAID ==
[~2021-09-20] MED LIST changes: -VANCOMYCIN 1500 MG/NS 500 ML IVPB IV NR
--- NOTE | 2021-09-23 12:30 | Anesthesia-General Post-Op ---
General Patient Condition Mental Status/LOC: Same as Preop Cardiovascular: Satisfactory Nausea/Vomiting: Absent Respiratory: Satisfactory Pain: Controlled Complications: Absent Post Op Complications Complications None Follow Up Care/Instructions Patient Instructions None needed. Anesthesia/Patient Condition Patient Condition Patient is doing well, no complaints, stable vital signs, no apparent adverse anesthesia problems. No complications reported per nursing. ELIGIO CHICAS CRNA Sep 23, 2021 12:30
== END ==
LOC: WOUNDCARE 13:19
PROVIDERS: ATTEND Family Medicine
DX: S31.102A Unspecified open wound of abdominal wall, epigastric region without penetration into peritoneal cavity, initial encounter (principal); T81.31XA Disruption of external operation (surgical) wound, not elsewhere classified, initial encounter; L98.492 Non-pressure chronic ulcer of skin of other sites with fat layer exposed; E11.622 Type 2 diabetes mellitus with other skin ulcer; E11.52 Type 2 diabetes mellitus with diabetic peripheral angiopathy with gangrene; E66.01 Morbid (severe) obesity due to excess calories; E11.43 Type 2 diabetes mellitus with diabetic autonomic (poly)neuropathy; K31.84 Gastroparesis; B18.2 Chronic viral hepatitis C; L02.211 Cutaneous abscess of abdominal wall; Z68.35 Body mass index [BMI] 35.0-35.9, adult
CPT/HCPCS: 11042

== ENCOUNTER → 2021-09-27 | Outpatient (CLI) | payer MEDICAID | LOC: WOUNDCARE 13:03 | PROVIDERS: ATTEND Family Medicine | DX: S31.102A Unspecified open wound of abdominal wall, epigastric region without penetration into peritoneal cavity, initial encounter (principal); T81.31XA Disruption of external operation (surgical) wound, not elsewhere classified, initial encounter; L98.492 Non-pressure chronic ulcer of skin of other sites with fat layer exposed; E11.622 Type 2 diabetes mellitus with other skin ulcer; E66.01 Morbid (severe) obesity due to excess calories; K31.84 Gastroparesis; B19.20 Unspecified viral hepatitis C without hepatic coma; L02.211 Cutaneous abscess of abdominal wall; I96 Gangrene, not elsewhere classified | CPT/HCPCS: 11042; 97605 ==

== ENCOUNTER → 2021-09-28 | Outpatient (CLI) | payer MEDICAID ==
[2021-09-29 12:46] LABS: BASOPHILS % (AUTO) 0 % (0-10); EOSINOPHILS # (AUTO) 0.1 10^3/uL (0.0-0.3); EOSINOPHILS % (AUTO) 2 % (0-10); HEMATOCRIT 36 % (35-52); HEMOGLOBIN 11.3 g/dL (11.5-16.0); LYMPHOCYTES # (AUTO) 1.1 X 10^3 (1.0-4.0); LYMPHOCYTES % (AUTO) 15 % (12-44); MEAN CORPUSCULAR HEMOGLOBIN 29 pg (25-34); MEAN CORPUSCULAR HGB CONC 32 g/dL (32-36); MEAN CORPUSCULAR VOLUME 91 fL (80-99); MEAN PLATELET VOLUME 10.5 fL (9.0-12.2); MONOCYTES # (AUTO) 0.4 X 10^3 (0.0-1.0); MONOCYTES % (AUTO) 5 % (0-12); NEUTROPHILS # (AUTO) 5.6 X 10^3 (1.8-7.8); NEUTROPHILS % (AUTO) 78 % (42-75); PLATELET COUNT 289 10^3/uL (130-400); WHITE BLOOD COUNT 7.1 10^3/uL (4.3-11.0)
[2021-09-29 12:48] LABS: CALCIUM 8.7 MG/DL (8.5-10.1); CREATININE SERUM 0.76 MG/DL (0.60-1.30); POTASSIUM 3.6 MMOL/L (3.6-5.0)
[2021-09-29 12:49] LABS: ALBUMIN 3.3 GM/DL (3.2-4.5); BILIRUBIN,TOTAL 0.3 MG/DL (0.1-1.0); TOTAL PROTEIN 6.5 GM/DL (6.4-8.2)
== END ==
LOC: LABNPT 12:45
PROVIDERS: ATTEND Family Medicine
DX: Z01.89 Encounter for other specified special examinations (principal)
CPT/HCPCS: 80053; 85025

== ENCOUNTER → 2021-10-04 | Outpatient (CLI) | payer MEDICAID | LOC: WOUNDCARE 13:05 | PROVIDERS: ATTEND Family Medicine | DX: S31.102A Unspecified open wound of abdominal wall, epigastric region without penetration into peritoneal cavity, initial encounter (principal); T81.31XA Disruption of external operation (surgical) wound, not elsewhere classified, initial encounter; E11.622 Type 2 diabetes mellitus with other skin ulcer; L98.492 Non-pressure chronic ulcer of skin of other sites with fat layer exposed; E66.01 Morbid (severe) obesity due to excess calories; E11.43 Type 2 diabetes mellitus with diabetic autonomic (poly)neuropathy; K31.84 Gastroparesis; B18.2 Chronic viral hepatitis C; L02.211 Cutaneous abscess of abdominal wall; E11.52 Type 2 diabetes mellitus with diabetic peripheral angiopathy with gangrene; I96 Gangrene, not elsewhere classified | CPT/HCPCS: 11042; 97605 ==

== ENCOUNTER → 2021-10-05 | Outpatient (CLI) | payer MEDICAID ==
[2021-10-05 14:53] LABS: BASOPHILS % (AUTO) 0 % (0-10); EOSINOPHILS # (AUTO) 0.1 10^3/uL (0.0-0.3); EOSINOPHILS % (AUTO) 2 % (0-10); HEMATOCRIT 33 % (35-52); HEMOGLOBIN 10.3 g/dL (11.5-16.0); LYMPHOCYTES # (AUTO) 0.8 10^3/uL (1.0-4.0); LYMPHOCYTES % (AUTO) 13 % (12-44); MEAN CORPUSCULAR HEMOGLOBIN 28 pg (25-34); MEAN CORPUSCULAR HGB CONC 32 g/dL (32-36); MEAN CORPUSCULAR VOLUME 90 fL (80-99); MONOCYTES # (AUTO) 0.4 10^3/uL (0.0-1.0); MONOCYTES % (AUTO) 6 % (0-12); NEUTROPHILS # (AUTO) 5.3 10^3/uL (1.8-7.8); NEUTROPHILS % (AUTO) 79 % (42-75); PLATELET COUNT 213 10^3/uL (130-400); WHITE BLOOD COUNT 6.7 10^3/uL (4.3-11.0)
[2021-10-05 15:14] LABS: ALBUMIN 3.2 GM/DL (3.2-4.5); POTASSIUM 3.6 MMOL/L (3.6-5.0)
[2021-10-05 15:15] LABS: CALCIUM 8.6 MG/DL (8.5-10.1)
[2021-10-05 15:17] LABS: TOTAL PROTEIN 6.2 GM/DL (6.4-8.2)
[2021-10-05 15:18] LABS: BILIRUBIN,TOTAL 0.4 MG/DL (0.1-1.0)
[2021-10-05 15:20] LABS: CREATININE SERUM 0.63 MG/DL (0.60-1.30)
[2021-10-05 15:28] LABS: VANCOMYCIN,TROUGH 11.7 UG/ML (10.0-20.0)
== END ==
LOC: LABNPT 14:43
PROVIDERS: ATTEND Family Medicine
DX: T81.49XD Infection following a procedure, other surgical site, subsequent encounter (principal)
CPT/HCPCS: 80053; 80202; 85025

== ENCOUNTER → 2021-10-11 | Outpatient (CLI) | payer MEDICAID | LOC: WOUNDCARE 13:03 | PROVIDERS: ATTEND Family Medicine | DX: S31.102A Unspecified open wound of abdominal wall, epigastric region without penetration into peritoneal cavity, initial encounter (principal); T81.31XA Disruption of external operation (surgical) wound, not elsewhere classified, initial encounter; L98.492 Non-pressure chronic ulcer of skin of other sites with fat layer exposed; E11.622 Type 2 diabetes mellitus with other skin ulcer; E66.01 Morbid (severe) obesity due to excess calories; E11.43 Type 2 diabetes mellitus with diabetic autonomic (poly)neuropathy; K31.84 Gastroparesis; B18.2 Chronic viral hepatitis C; L02.211 Cutaneous abscess of abdominal wall; E11.52 Type 2 diabetes mellitus with diabetic peripheral angiopathy with gangrene; Z68.35 Body mass index [BMI] 35.0-35.9, adult | CPT/HCPCS: 11042 ==

== ENCOUNTER → 2021-10-12 | Outpatient (CLI) | payer MEDICAID ==
[2021-10-12 14:06] LABS: BASOPHILS % (AUTO) 0 % (0-10); EOSINOPHILS # (AUTO) 0.2 10^3/uL (0.0-0.3); EOSINOPHILS % (AUTO) 3 % (0-10); HEMATOCRIT 31 % (35-52); HEMOGLOBIN 10.1 g/dL (11.5-16.0); LYMPHOCYTES % (AUTO) 14 % (12-44); MEAN CORPUSCULAR HEMOGLOBIN 28 pg (25-34); MEAN CORPUSCULAR HGB CONC 32 g/dL (32-36); MEAN CORPUSCULAR VOLUME 88 fL (80-99); MEAN PLATELET VOLUME 10.9 fL (9.0-12.2); MONOCYTES # (AUTO) 0.5 10^3/uL (0.0-1.0); MONOCYTES % (AUTO) 7 % (0-12); NEUTROPHILS # (AUTO) 5.2 10^3/uL (1.8-7.8); NEUTROPHILS % (AUTO) 75 % (42-75); PLATELET COUNT 220 10^3/uL (130-400); WHITE BLOOD COUNT 6.9 10^3/uL (4.3-11.0)
[2021-10-12 14:25] LABS: POTASSIUM 3.5 MMOL/L (3.6-5.0)
[2021-10-12 14:26] LABS: ALBUMIN 3.4 GM/DL (3.2-4.5); BILIRUBIN,TOTAL 0.2 MG/DL (0.1-1.0); CALCIUM 8.8 MG/DL (8.5-10.1); CREATININE SERUM 0.84 MG/DL (0.60-1.30); TOTAL PROTEIN 6.6 GM/DL (6.4-8.2)
[2021-10-12 19:59] LABS: VANCOMYCIN,TROUGH 24.2 UG/ML (10.0-20.0)
== END ==
LOC: IHC 13:30
PROVIDERS: ATTEND Family Medicine
DX: T81.31XD Disruption of external operation (surgical) wound, not elsewhere classified, subsequent encounter (principal)
CPT/HCPCS: 80053; 80202; 85025

== ENCOUNTER 2021-10-15 20:31 | Emergency (ER) | payer MEDICAID ==
[~2021-10-15] VITALS: Ht 160 cm; Wt 91.0 kg
[2021-10-15 20:42] VITALS: BP 205/94
[2021-10-15 21:13] LABS: BASOPHILS % (AUTO) 0 % (0-10); EOSINOPHILS # (AUTO) 0.1 10^3/uL (0.0-0.3); EOSINOPHILS % (AUTO) 1 % (0-10); HEMATOCRIT 47 % (35-52); HEMOGLOBIN 15.5 g/dL (11.5-16.0); LYMPHOCYTES % (AUTO) 10 % (12-44); MEAN CORPUSCULAR HEMOGLOBIN 27 pg (25-34); MEAN CORPUSCULAR HGB CONC 33 g/dL (32-36); MEAN CORPUSCULAR VOLUME 84 fL (80-99); MEAN PLATELET VOLUME 10.4 fL (9.0-12.2); MONOCYTES # (AUTO) 0.4 X 10^3 (0.0-1.0); MONOCYTES % (AUTO) 5 % (0-12); NEUTROPHILS # (AUTO) 8.1 X 10^3 (1.8-7.8); NEUTROPHILS % (AUTO) 84 % (42-75); PLATELET COUNT 200 10^3/uL (130-400); WHITE BLOOD COUNT 9.6 10^3/uL (4.3-11.0)
[2021-10-15 21:14] LABS: BILIRUBIN,TOTAL 0.4 MG/DL (0.1-1.0); CALCIUM 9.3 MG/DL (8.5-10.1); CREATININE SERUM 0.8 MG/DL (0.60-1.30); POTASSIUM 3.7 MMOL/L (3.6-5.0)
[2021-10-15 21:15] LABS: ALBUMIN 3.9 GM/DL (3.2-4.5); TOTAL PROTEIN 7.4 GM/DL (6.4-8.2)
[2021-10-15] MEDS ORDERED: HALOPERIDOL 5 MG/ML (HALDOL) VIAL IV ONE (21:15)
[2021-10-15] MEDS ORDERED: FAMOTIDINE 20MG/2ML IV (PEPCID) IVP ONE (21:15)
[2021-10-15] MEDS ORDERED: ONDANSETRON 4 MG/2 ML (SDV) Z0FRAN IVP ONE (21:15)
[2021-10-15] MEDS: NS IV 1000 ML 1,000 ML IV SCH ×2 (21:17→22:29)
[2021-10-15] MEDS ORDERED: IOHEXOL 350 MG/ML 100 ML (OMNIPAQUE 350) VIAL IV ONE (21:30)
[2021-10-15] MEDS ORDERED: fentaNYL INJ 100 MCG/2 ML AMP IVP ONE (21:30)
[2021-10-15] MEDS ORDERED: HOLD METFORMIN - RECEIVED CONTRAST 20 ML VIAL IV SCH (21:30)
[2021-10-15] MEDS ORDERED: CATHETER FLUSH 10 ML SYR IV PRN (21:30)
[2021-10-15] MEDS ORDERED: NS 100 ML (IVPB) BAG IV ONE (21:30)
[2021-10-15 21:40] LABS: BILIRUBIN,URINE NEGATIVE (NEGATIVE); CLARITY,URINE CLEAR; COLOR,URINE YELLOW; GLUCOSE, URINE (UA) NEGATIVE (NEGATIVE); KETONES,URINE 2+ (NEGATIVE); LEUKOCYTE ESTERASE ,URINE NEGATIVE (NEGATIVE); NITRITE,URINE NEGATIVE (NEGATIVE); PROTEIN,URINE NEGATIVE (NEGATIVE)
[2021-10-15 21:44] LABS: BACTERIA,URINE TRACE /HPF
[2021-10-15] MEDS ORDERED: diphenhydrAMINE 50 MG/ML INJ (BENADRYL) IVP ONE (23:00)
--- NOTE | 2021-10-16 06:49 | Diagnostic Imaging Report ---
PROCEDURE: CT abdomen and pelvis with contrast. TECHNIQUE: Multiple contiguous axial images were obtained through the abdomen and pelvis after administration of intravenous contrast. Auto Exposure Controls were utilized during the CT exam to meet ALARA standards for radiation dose reduction. All CT scans use one or more of the following dose optimizing techniques: automated exposure control, MA and/or KvP adjustment based on patient size and exam type or iterative reconstruction. INDICATION: Abdominal pain. COMPARISON: CT abdomen with IV contrast 09/06/2021. CT abdomen and pelvis with IV contrast 07/25/2021. FINDINGS: Wound VAC overlying a wound in the subcutaneous tissues of the anterior right abdominal wall. This wound appears to contain packing material and measures approximately 3.1 x 6.0 cm axially. No involvement deep to the peritoneum is identified. Small bilateral pleural effusions are new since the prior exams. Small pericardial effusion. Cholecystectomy. 0.2 cm nonobstructing renal stone in the right kidney. Sigmoid diverticulosis without evidence of active diverticulitis. Hysterectomy. 3.0 cm nonspecific right ovarian cyst. The liver, pancreas, spleen, adrenals, kidneys, collecting systems and bladder are unremarkable. No evidence of appendicitis. No acute osseous findings. IMPRESSION: 1. Wound in the subcutaneous tissues with an overlying wound VAC appears to contain packing material. No peritoneal involvement is identified. 2. New small bilateral pleural effusions and a tiny pericardial effusion. 3. Additional chronic and incidental findings, as above. No significant change from preliminary interpretation. Dictated by: Dictated on workstation # [id number]
== END 2021-10-15 23:27 ==
LOC: EDUNIT# 20:31 → ER FS 20:32
DX: R05.9 Cough, unspecified (principal); R11.10 Vomiting, unspecified; R10.9 Unspecified abdominal pain
CPT/HCPCS: 36415; 74177; 80053; 81000; 82947; 84703; 85025

== ENCOUNTER 2021-10-16 23:24 | Emergency (ER) | payer MEDICAID ==
[~2021-10-16] VITALS: Ht 157 cm; Wt 84.0 kg
[2021-10-17] MEDS ORDERED: PROCHLORPERAZINE 10 MG/2ML INJ (COMPAZINE) IV STA (00:02)
[2021-10-17] MEDS ORDERED: diphenhydrAMINE 50 MG/ML INJ (BENADRYL) IVP STA (00:02)
--- NOTE | 2021-10-17 00:09 | ED Abdominal Pain ---
General Chief Complaint: Abdominal/GI Problems Stated Complaint: ABD PAIN,BLACK STOOLS,N/V,POST OP ABD Nursing Triage Note: c/o abdominal pain, dark tarry stools, vomitting x2 days. Source of Information: Patient Exam Limitations: No Limitations History of Present Illness Date Seen by Provider: Oct 16, 2021 Time Seen by Provider: 23:50 Initial Comments Patient is a 46-year-old female with a chief complaint of persistent nausea and vomiting, inability to hold down her pain medications, pain in her right lower abdomen onset 2 days ago. Patient has had multiple prior abdominal surgeries including gastric stimulators and removal. This is caused multiple chronic wounds to her abdomen. She also has a history of cyclic vomiting syndrome. In August she underwent extensive debridement with wound VAC placement. She is f ollowed at wound care clinic and currently on a regimen of 6 weeks of vancomycin antibiotic therapy. She states in the past she has developed nausea and vomiting with vancomycin IV therapy. She went to last evening with the above-stated symptoms, she had laboratory studies and a CT scan with IV contrast. She was very unhappy with her care at that facility. She ended up leaving AMA before discharge paperwork. Her symptoms have persisted. She has been very thirsty. Her pain has persisted as well. No fevers or chills. No burning with urination. She states that her stools have been "black" since yesterday. Review of the medical record shows that her hemoglobin was 15 yesterday. She has not had diarrheal stool. She is not lightheaded or dizzy. No problems with the wound VAC. She does state that her PICC line has been not acting normally all day today since they used it for her IV contrast for her CAT scan yesterday. No pain in her arm, redness or swelling. We discussed nausea medications. The patient states that she can take Compazine and Phenergan. She would prefer the Compazine because Phenergan can cause her to develop tardive dyskinesia and she can only take it for about 4 days. I offered Compazine and Benadryl and some IV fluids. We will check a chemistry panel to make sure electrolytes are okay as she has been vomiting so much. All other review of systems reviewed and negative except as stated Timing/Duration: 1-2 Days Severity/Quality: Severe, Cramping Location: RLQ Radiation: No Radiation Activities at Onset: None Modifying Factors: Improves With Vomiting Associated Symptoms: Nausea/Vomiting Allergies and Home Medications Allergies Coded Allergies: adhesive tape (Verified Allergy, Unknown, 09/10/21) chlorhexidine (Verified Allergy, Unknown, 09/10/21) fluvoxamine (Verified Allergy, Unknown, 09/10/21) hydromorphone (Verified Allergy, Unknown, 09/10/21) latex (Verified Allergy, Unknown, 09/10/21) meperidine (Verified Allergy, Unknown, 09/10/21) metoclopramide (Verified Allergy, Unknown, Tardive Dyskinesia, 09/10/21) morphine (Verified Allergy, Unknown, 09/10/21) promethazine (Verified Allergy, Unknown, 09/10/21) sulfamethoxazole (Verified Allergy, Unknown, 09/10/21) trimethoprim (Verified Allergy, Unknown, 09/10/21) Patient Home Medication List Home Medication List Reviewed: Yes Albuterol Sulfate (Proair Hfa) 1 Puff Puff, 2 PUFF IH Q4H PRN for SHORTNESS OF BREATH, (Reported) Entered as Reported by: WILLIAN GARZA on 07/28/18 1032 Atorvastatin Calcium (Atorvastatin Calcium) 10 Mg Tablet, 10 MG PO DAILY, (Reported) Entered as Reported by: ADAN VALLADARES on 08/07/21 0200 Cetirizine HCl (Cetirizine HCl) 10 Mg Tablet, 10 MG PO HS, (Reported) Entered as Reported by: ADAN VALLADARES on 08/07/21 0211 Diazepam (Diazepam) 5 Mg Tablet, 5 MG PO BID Prescribed by: EULALIA TRACEY on 08/08/21 1044 Fentanyl (Fentanyl Patch 25 MCG) 1 Each Patch.td72, 25 MCG TD Q72H, (Reported) Entered as Reported by: MIRLANDE FINLEY on 09/09/21 1050 Fluconazole (Fluconazole) 100 Mg Tablet, 100 MG PO DAILY, (Reported) Entered as Reported by: MIRLANDE FINLEY on 09/09/21 0949 Fluticasone Propionate (Fluticasone Propionate) 16 Gm Tolley.susp, 2 SPRAYS NA DAILY, (Reported) Entered as Reported by: ADAN VALLADARES on 08/07/21 0207 Fluticasone/Vilanterol (Breo Ellipta 100-25 Mcg INH) 1 Each Blst.w.dev, 2 PUFF IH DAILY, (Reported) Entered as Reported by: ADAN VALLADARES on 08/07/21312 Glucagon (Gvoke Hypopen 2-Pack) 1 Mg/0.2 Ml Auto.injct, 1 MG SC for HYPOGLYCEMIA, (Reported) Entered as Reported by: ADAN VALLADARES on 08/07/21312 Insulin Aspart (Novolog Flexpen) 300 Units/3 Ml Solution, 7 UNITS SQ AC Prescribed by: BRIANA MOORE on 07/31/18 09 Insulin Detemir (Levemir Flextouch) 100 Unit/1 Ml Insuln.pen, 30 UNIT SQ HS, (Reported) Entered as Reported by: ADAN VALLADARES on 08/07/21318 Ipratropium/Albuterol Sulfate (Iprat-Albut 0.5-3(2.5) mg/3 ml) 3 Ml Ampul.neb, 3 ML IH Q4H PRN for SHORTNESS OF BREATH, (Reported) Entered as Reported by: WILLIAN GARZA on 07/28/18 103 Lactobacillus Acidophilus (Probiotic) 1 Each Capsule, 2 EACH PO HS PRN for CONSTIPATION-1ST LINE, (Reported) Entered as Reported by: ADAN VALLADARES on 08/07/21331 Lidocaine HCl (Glydo) 6 Ml Jel.pf.desmond, 6 ML MM UD, (Reported) Entered as Reported by: MIRLANDE FINLEY on 09/09/21948 Lidocaine HCl/Pf (Lidocaine HCl 4% Ampul) 40 Mg/1 Ml Ampul, 40 MG UD, (Reported) Entered as Reported by: MIRLANDE FINLEY on 09/09/21948 Lisinopril (Lisinopril) 10 Mg Tablet, 20 MG PO DAILY, (Reported) Entered as Reported by: ADAN VALLADARES on 08/07/21201 Metoprolol Tartrate (Metoprolol Tartrate) 25 Mg Tablet, 25 MG PO DAILY, (Reported) Entered as Reported by: ADAN VALLADARES on 08/07/21199 Omeprazole (Omeprazole) 40 Mg Capsule.dr, 40 MG PO BID, (Reported) Entered as Reported by: ADAN VALLADARES on 08/07/21 0156 Ondansetron (Ondansetron Odt) 8 Mg Tab.rapdis, 8 MG PO Q8H PRN for NAUSEA-1ST LINE, (Reported) Entered as Reported by: ADAN VALLADARES on 08/07/21 0154 Oxycodone HCl (Oxycodone HCl) 5 Mg Tablet, 5-10 MG PO Q6H PRN for PAIN-MODERATE (5-7), (Reported) Entered as Reported by: ADAN VALLADARES on 08/07/21 0325 Potassium Chloride (Potassium Chloride) 20 Meq Tablet.er, 20 MEQ PO BID Prescribed by: SHERYL GREEN on 07/15/212004 Prochlorperazine Maleate (Prochlorperazine Maleate) 10 Mg Tablet, 10 MG PO Q6H PRN for NAUSEA/VOMITING-2ND LINE Prescribed by: RANULFO GOODRICH on 07/29/21 0608 Prochlorperazine Maleate (Compazine) 10 Mg Tablet, 10 MG PO Q6H PRN for nausea Prescribed by: RUFUS BAGLEY on 10/17/21 0046 Promethazine HCl (Promethazine HCl) 50 Mg Tablet, 25 MG PO Q8H PRN for NAUSEA/VOMITING-2ND LINE, (Reported) Entered as Reported by: ADAN VALLADARES on 08/07/21 0158 Promethazine HCl (Promethegan) 12.5 Mg Supp.rect, 12.5 MG W[place] BID PRN for NAUSEA/VOMITING-3RD LINE, (Reported) Entered as Reported by: ADAN VALLADARES on 08/07/21 0200 Promethazine HCl (Promethazine Tablet) 25 Mg Tablet, 25 MG PO Q6H PRN for NAUSEA/VOMITING Prescribed by: RENALDO EDWARDS on 08/09/21 1412 Trazodone HCl (Trazodone HCl) 150 Mg Tablet, 300 MG PO HS, (Reported) Entered as Reported by: WILLIAN GARZA on 07/28/18 1034 Review of Systems Review of Systems Constitutional: see HPI EENTM: No Symptoms Reported Respiratory: No Symptoms Reported Cardiovascular: No Symptoms Reported Gastrointestinal: Abdominal Pain, Nausea, Vomiting Genitourinary: No Symptoms Reported Musculoskeletal: no symptoms reported Skin: no symptoms reported Psychiatric/Neurological: No Symptoms Reported All Other Systems Reviewed Negative Unless Noted: Yes Past Tnyxwhw-Acxnam-Rbokcs Hx Patient Social History Tobacco Use?: Yes Tobacco type used: Cigarettes Substance use?: No Alcohol Use?: No Pt feels they are or have been: No Immunizations Up To Date First/Initial COVID19 Vaccinat: MODERNA Second COVID19 Vaccination Guy: Third COVID19 Vaccination Date: MODERNA COVID19 Vaccine Candy Dipper: MODERNA Seasonal Allergies Seasonal Allergies: Yes Past Medical History Surgery/Hospitalization HX: Gastroparesis, chronic abdominal wound infection with MRSA, jejunostomytube October 2019, gastric stimulator, pyloroplasty, cholecystectomy,hysterectomy, orthopedics, iddm, gerd, cyclic vomitting, asthma, hep c, anx/dep, schizoaffective d/o Surgeries: Yes (carpal tunnel bilat, wound lesions) Abdominal, Gallbladder, Hysterectomy, Orthopedic Respiratory: Yes (inhalers, nebulizer treatments) Asthma Currently Using CPAP: No Currently Using BIPAP: No Cardiac: Yes Heart Murmur, High Cholesterol, Hypertension Neurological: Yes (from head injury - no recent seizures in last 2 years) Concussion, Seizure Disorder Female 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 Disorders: Denies [employer] History: Hysterectomy Sexually Transmitted Disease: No HIV/AIDS: No Genitourinary: No Gastrointestinal: Yes (Gastroparesis, hepatitis C, cyclic vomiting) Gastroesophageal Reflux, Chronic Diarrhea, Hepatitis, Ulcer Musculoskeletal: No Endocrine: Yes Diabetes, Insulin dep HEENT: Yes (wears glasses) Hearing Impairment: Denies Cancer: No Psychosocial: Yes (Schizoaffective disorder) Anxiety, Depression Integumentary: Yes (abominal wound) Blood Disorders: No Physical Exam Vital Signs Vital Signs - First Documented 10/16/21 23:35 Temp 36.3 Pulse 70 Resp 16 B/P (MAP) 170/99 (122) Pulse Ox 96 O2 Delivery Room Air Capillary Refill : Less Than 3 Seconds Height/Weight/BMI Height: 5'2.00" Weight: 184lbs. 7.0oz. [id number]; 34.00 BMI Method:Actual General Appearance: WD/WN, mild distress (Slightly tearful) HEENT: PERRL/EOMI Neck: normal inspection Respiratory: lungs clear, normal breath sounds, no respiratory distress, no accessory muscle use Cardiovascular: regular rate, rhythm Gastrointestinal: normal bowel sounds, soft, tenderness (Minimally tender to palpation in the right lower quadrant. No overlying erythema across the abdominal wall. Wound VAC is in place and appears to be functioning normally. Bowel sounds are present. No distention is noted.) Extremities: normal inspection Neurologic/Psychiatric: alert, oriented x 3, other (Tearful) Skin: normal color, warm/dry Progress/Results/Core Measures Results/Orders Lab Results Laboratory Tests Test 10/17/21 00:08 Range/Units Sodium Level 139 135-145 MMOL/L Potassium Level 3.0 L 3.6-5.0 MMOL/L Chloride Level 101 98-107 MMOL/L Carbon Dioxide Level 22 21-32 MMOL/L Anion Gap 16 H 5-14 MMOL/L Blood Urea Nitrogen 10 7-18 MG/DL Creatinine 0.86 0.60-1.30 MG/DL Estimat Glomerular Filtration Rate 84 BUN/Creatinine Ratio 12 Glucose Level 141 H 70-105 MG/DL Calcium Level 9.0 8.5-10.1 MG/DL My Orders Orders - RUFUS BAGLEY MD Basic Metabolic Panel (10/17/21 00:02) Prochlorperazine Injection (Compazine In (10/17/21 00:02) Diphenhydramine Injection (Benadryl Inje (10/17/21 00:02) Potassium Chloride (Tablet) (K Dur Table (10/17/21 00:45) Oxycodone/Acet 10/325mg Tablet (Percocet (10/17/21 00:45) Rx-Promethazine Hcl (Rx-Phenergan Supp) (10/17/21 01:55) Medications Given in ED Current Medications Medications Dose Ordered Sig/Faiza Route Start Time Stop Time Status Last Admin Dose Admin Oxycodone/ Acetaminophen 1 tab ONCE ONCE PO 10/17/21 00:45 10/17/21 00:46 DC 10/17/21 01:05 1 TAB Potassium Chloride 20 meq ONCE ONCE PO 10/17/21 00:45 10/17/21 00:46 DC 10/17/21 01:05 20 MEQ Vital Signs/I&O 10/16/21 10/17/21 23:35 02:01 Temp 36.3 36.5 Pulse 70 68 Resp 16 14 B/P (MAP) 170/99 (122) 152/89 Pulse Ox 96 98 O2 Delivery Room Air Room Air Blood Pressure Mean: 122 Progress Progress Note #1: Time: 00:43 Progress Note Patient's meds and fluids are finished. She is feeling much better. She is willing to try a sip of water with a p.o. potassium and a Percocet. We will get her a prescription for Compazine for home. She does look much better. She is comfortable with discharge. I let her know that her potassium was a little bit low. She does take potassium twice daily at home. Return precautions discussed. I advised her to reach out to Dr. Estrella's office first thing Monday. She is agreeable. All questions are sought and answered. Progress Note #2: Time: 01:54 Progress Note patient is very grateful at discharge, feeling MUCH improved. we did do a fecal occult blood test at the bedside prior to discharge and it was negative. Return precautions discussed. Sent home with some phenergan suppositories (no tablets available for take home). Departure Impression Primary Impression: Nausea and vomiting Qualified Codes: R11.2 - Nausea with vomiting, unspecified Additional Impression: Abdominal pain Qualified Codes: R10.31 - Right lower quadrant pain Disposition: HOME, SELF-CARE Condition: Improved Departure-Patient Inst. Decision time for Depature: 00:45 Referrals: JOHN ESTRELLA MAXWELL MD (PCP/Family) Primary Care Physician Patient Instructions: Nausea and Vomiting, Adult Add. Discharge Instructions: Sips of fluids every 15 minutes while awake. Take the Compazine every 6-8 hours as needed for nausea. This medication should hopefully help you hold down your daily medications. Please follow-up with Dr. Estrella's office on Monday. Please return to the emergency department here in [place] for any worsening abdominal pain especially with fever, persistent vomiting, bloody stools or any other emergent concerning symptoms. Scripts Prochlorperazine Maleate (Compazine) 10 Mg Tablet 10 MG PO Q6H PRN for nausea, #20 TAB Prov: RUFUS BAGLEY MD 10/17/21 Copy Copies To 1: JOHN ESTRELLA DO Copies To 2: NICOLE DENG MD, KATHRYN M MD Oct 17, 2021 00:09
[2021-10-17 00:36] LABS: CREATININE SERUM 0.86 MG/DL (0.60-1.30)
[2021-10-17] MEDS ORDERED: oxyCODONE/APAP 10/325MG (PERCOCET 10) TABLET PO ONE (00:45)
[2021-10-17] MEDS ORDERED: KCL 20 MEQ TAB (K-DUR) PO ONE (00:45)
[2021-10-17] MEDS ORDERED: PROC-1 PO (00:46)
[2021-10-17] MEDS ORDERED: RX-PHENERGAN 25 MG SUPP PPK#3 PR STA (01:55)
[2021-10-17 02:01] VITALS: BP 152/89
== END 2021-10-17 02:02 | disposition home or self-care (01) ==
LOC: EDUNIT# 23:24 → ER 23:27
DX: R11.2 Nausea with vomiting, unspecified (principal); R10.31 Right lower quadrant pain; E11.9 Type 2 diabetes mellitus without complications; Z91.040 Latex allergy status; Z79.4 Long term (current) use of insulin
CPT/HCPCS: 36415; 80048

== ENCOUNTER 2021-10-18 13:08 | Outpatient (RCR) | payer MEDICAID ==
[2021-10-18 13:40] VITALS: BP 150/81
== END 2021-10-30 | disposition home or self-care (01) ==
LOC: SDC 13:08
PROVIDERS: ATTEND Family Medicine
DX: S31.102A Unspecified open wound of abdominal wall, epigastric region without penetration into peritoneal cavity, initial encounter (principal); T81.31XA Disruption of external operation (surgical) wound, not elsewhere classified, initial encounter; L98.492 Non-pressure chronic ulcer of skin of other sites with fat layer exposed; E11.622 Type 2 diabetes mellitus with other skin ulcer; E66.01 Morbid (severe) obesity due to excess calories; K31.84 Gastroparesis; B18.2 Chronic viral hepatitis C; L02.211 Cutaneous abscess of abdominal wall
CPT/HCPCS: 99211

== ENCOUNTER → 2021-10-18 | Outpatient (CLI) | payer MEDICAID ==
[~2021-10-18] MED LIST changes: +PROC-1 PO
== END ==
LOC: WOUNDCARE 13:51
PROVIDERS: ATTEND Family Medicine
DX: S31.102A Unspecified open wound of abdominal wall, epigastric region without penetration into peritoneal cavity, initial encounter (principal); T81.31XA Disruption of external operation (surgical) wound, not elsewhere classified, initial encounter; L98.492 Non-pressure chronic ulcer of skin of other sites with fat layer exposed; E11.622 Type 2 diabetes mellitus with other skin ulcer; E66.01 Morbid (severe) obesity due to excess calories; E11.43 Type 2 diabetes mellitus with diabetic autonomic (poly)neuropathy; K31.84 Gastroparesis; B18.2 Chronic viral hepatitis C; L02.211 Cutaneous abscess of abdominal wall; B95.62 Methicillin resistant Staphylococcus aureus infection as the cause of diseases classified elsewhere; E11.52 Type 2 diabetes mellitus with diabetic peripheral angiopathy with gangrene; Z68.35 Body mass index [BMI] 35.0-35.9, adult
CPT/HCPCS: 11042

== ENCOUNTER 2021-10-22 13:30 | Emergency (ER) | payer MEDICAID ==
[~2021-10-22] VITALS: Ht 157.4 cm; Wt 87.0 kg
--- NOTE | 2021-10-22 13:54 | ED General ---
General Chief Complaint: Catheter/Drain/Tube Problems Stated Complaint: TROUBLES WITH PICC LINE Source of Information: Patient Exam Limitations: No Limitations History of Present Illness Date Seen by Provider: Oct 22, 2021 Time Seen by Provider: 13:53 Initial Comments To ER by private vehicle with reports of PICC line in the right upper extremity not drawing or flushing as of today. She is receiving IV vancomycin for her abdominal wall cutaneous abscess where she also has a wound VAC. She follows with wound care. Wound care Dr. Urena and home health they are concerned that the patient is messing with her PICC line at home as she intermittently has altered mental status and there is concern of possible opiate use via the PICC line at home. This has been placed for 4 weeks now. Timing/Duration: 1-2 Days Severity: Mild Associated Systoms: Denies Symptoms Allergies and Home Medications Allergies Coded Allergies: adhesive tape (Verified Allergy, Unknown, 09/10/21) chlorhexidine (Verified Allergy, Unknown, 09/10/21) fluvoxamine (Verified Allergy, Unknown, 09/10/21) hydromorphone (Verified Allergy, Unknown, 09/10/21) latex (Verified Allergy, Unknown, 09/10/21) meperidine (Verified Allergy, Unknown, 09/10/21) metoclopramide (Verified Allergy, Unknown, Tardive Dyskinesia, 09/10/21) morphine (Verified Allergy, Unknown, 09/10/21) promethazine (Verified Allergy, Unknown, 09/10/21) sulfamethoxazole (Verified Allergy, Unknown, 09/10/21) trimethoprim (Verified Allergy, Unknown, 09/10/21) Patient Home Medication List Home Medication List Reviewed: Yes Albuterol Sulfate (Proair Hfa) 1 Puff Puff, 2 PUFF IH Q4H PRN for SHORTNESS OF BREATH, (Reported) Entered as Reported by: WILLIAN GARZA on 07/28/18 1032 Atorvastatin Calcium (Atorvastatin Calcium) 10 Mg Tablet, 10 MG PO DAILY, (Reported) Entered as Reported by: ADAN VALLADARES on 08/07/21 0200 Cetirizine HCl (Cetirizine HCl) 10 Mg Tablet, 10 MG PO HS, (Reported) Entered as Reported by: ADAN VALLADARES on 08/07/21 0211 Diazepam (Diazepam) 5 Mg Tablet, 5 MG PO BID Prescribed by: EULALIA TRACEY on 08/08/21 1044 Fentanyl (Fentanyl Patch 25 MCG) 1 Each Patch.td72, 25 MCG TD Q72H, (Reported) Entered as Reported by: MIRLANDE FINLEY on 09/09/21 1050 Fluconazole (Fluconazole) 100 Mg Tablet, 100 MG PO DAILY, (Reported) Entered as Reported by: MIRLANDE FINLEY on 09/09/21 0949 Fluticasone Propionate (Fluticasone Propionate) 16 Gm [place].susp, 2 SPRAYS NA DAILY, (Reported) Entered as Reported by: ADAN VALLADARES on 08/07/21 0207 Fluticasone/Vilanterol (Breo Ellipta 100-25 Mcg INH) 1 Each Blst.w.dev, 2 PUFF IH DAILY, (Reported) Entered as Reported by: ADAN VALLADARES on 08/07/21 031 Glucagon (Gvoke Hypopen 2-Pack) 1 Mg/0.2 Ml Auto.injct, 1 MG SC for HYPOGLYCEMIA, (Reported) Entered as Reported by: ADAN VALLADARES on 08/07/21 031 Insulin Aspart (Novolog Flexpen) 300 Units/3 Ml Solution, 7 UNITS SQ AC Prescribed by: BRIANA MOORE on 07/31/18 0955 Insulin Detemir (Levemir Flextouch) 100 Unit/1 Ml Insuln.pen, 30 UNIT SQ HS, (Reported) Entered as Reported by: ADAN VALLADARES on 08/07/21 0319 Ipratropium/Albuterol Sulfate (Iprat-Albut 0.5-3(2.5) mg/3 ml) 3 Ml Ampul.neb, 3 ML IH Q4H PRN for SHORTNESS OF BREATH, (Reported) Entered as Reported by: WILLIAN GARZA on 07/28/18 1033 Lactobacillus Acidophilus (Probiotic) 1 Each Capsule, 2 EACH PO HS PRN for CONSTIPATION-1ST LINE, (Reported) Entered as Reported by: ADAN VALLADARES on 08/07/21 0332 Lidocaine HCl (Glydo) 6 Ml Jel.pf.desmond, 6 ML MM UD, (Reported) Entered as Reported by: MIRLANDE FINLEY on 09/09/21 0949 Lidocaine HCl/Pf (Lidocaine HCl 4% Ampul) 40 Mg/1 Ml Ampul, 40 MG UD, (Reported) Entered as Reported by: MIRLANDE FINLEY on 09/09/21 0949 Lisinopril (Lisinopril) 10 Mg Tablet, 20 MG PO DAILY, (Reported) Entered as Reported by: ADAN VALLADARES on 08/07/21 020 Metoprolol Tartrate (Metoprolol Tartrate) 25 Mg Tablet, 25 MG PO DAILY, (Reported) Entered as Reported by: ADAN VALLADARES on 08/07/21 020 Omeprazole (Omeprazole) 40 Mg Capsule.dr, 40 MG PO BID, (Reported) Entered as Reported by: ADAN VALLADARES on 08/07/21 015 Ondansetron (Ondansetron Odt) 8 Mg Tab.rapdis, 8 MG PO Q8H PRN for NAUSEA-1ST LINE, (Reported) Entered as Reported by: ADAN VALLADARES on 08/07/21 0154 Oxycodone HCl (Oxycodone HCl) 5 Mg Tablet, 5-10 MG PO Q6H PRN for PAIN-MODERATE (5-7), (Reported) Entered as Reported by: ADAN VALLADARES on 08/07/21 0325 Potassium Chloride (Potassium Chloride) 20 Meq Tablet.er, 20 MEQ PO BID Prescribed by: SHERYL GREEN on 07/15/212004 Prochlorperazine Maleate (Prochlorperazine Maleate) 10 Mg Tablet, 10 MG PO Q6H PRN for NAUSEA/VOMITING-2ND LINE Prescribed by: RANULFO GOODRICH on 07/29/21 0608 Prochlorperazine Maleate (Compazine) 10 Mg Tablet, 10 MG PO Q6H PRN for nausea Prescribed by: RUFUS BAGLEY on 10/17/21 0046 Promethazine HCl (Promethazine HCl) 50 Mg Tablet, 25 MG PO Q8H PRN for NAUSEA/VOMITING-2ND LINE, (Reported) Entered as Reported by: ADAN VALLADARES on 08/07/21 0158 Promethazine HCl (Promethegan) 12.5 Mg Supp.rect, 12.5 MG IL BID PRN for NAUSEA/VOMITING-3RD LINE, (Reported) Entered as Reported by: ADAN VALLADARES on 08/07/21 0200 Promethazine HCl (Promethazine Tablet) 25 Mg Tablet, 25 MG PO Q6H PRN for NAUSEA/VOMITING Prescribed by: RENALDO EDAWRDS on 08/09/21 1412 Trazodone HCl (Trazodone HCl) 150 Mg Tablet, 300 MG PO HS, (Reported) Entered as Reported by: WILLIAN GARZA on 07/28/18 1034 Review of Systems Review of Systems Constitutional: see HPI EENTM: see HPI Respiratory: no symptoms reported Cardiovascular: no symptoms reported Genitourinary: no symptoms reported Musculoskeletal: no symptoms reported Skin: no symptoms reported Psychiatric/Neurological: No Symptoms Reported Hematologic/Lymphatic: No Symptoms Reported Immunological/Allergic: no symptoms reported Past Lrbkyby-Sgyndg-Qyduma Hx Immunizations Up To Date First/Initial COVID19 Vaccinat: MODERNA Second COVID19 Vaccination Guy: Third COVID19 Vaccination Date: Seasonal Allergies Seasonal Allergies: Yes Past Medical History Surgery/Hospitalization HX: Gastroparesis, chronic abdominal wound infection with MRSA, jejunostomytube October 2019, gastric stimulator, pyloroplasty, cholecystectomy,hysterectomy, orthopedics, iddm, gerd, cyclic vomitting, asthma, hep c, anx/dep, schizoaffective d/o Surgeries: Yes (carpal tunnel bilat, wound lesions) Abdominal, Gallbladder, Hysterectomy, Orthopedic Respiratory: Yes (inhalers, nebulizer treatments) Asthma Currently Using CPAP: No Currently Using BIPAP: No Cardiac: Yes Heart Murmur, High Cholesterol, Hypertension Neurological: Yes (from head injury - no recent seizures in last 2 years) Concussion, Seizure Disorder Female 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 Disorders: Denies [employer]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 Sexually Transmitted Disease: No HIV/AIDS: No Genitourinary: No Gastrointestinal: Yes (Gastroparesis, hepatitis C, cyclic vomiting) Gastroesophageal Reflux, Chronic Diarrhea, Hepatitis, Ulcer Musculoskeletal: No Endocrine: Yes Diabetes, Insulin dep HEENT: Yes (wears glasses) Hearing Impairment: Denies Cancer: No Psychosocial: Yes (Schizoaffective disorder) Anxiety, Depression Integumentary: Yes (abominal wound) Blood Disorders: No Physical Exam Vital Signs Vital Signs - First Documented 10/22/21 13:45 Temp 36.9 Pulse 87 Resp 20 B/P (MAP) 159/92 (114) Pulse Ox 97 Capillary Refill : Height, Weight, BMI Height: 5'2.00" Weight: 184lbs. 7.0oz. 83.860391uy; 34.00 BMI Method:Actual General Appearance: No Apparent Distress, WD/WN Eyes: Bilateral Eye Normal Inspection, Bilateral Eye PERRL, Bilateral Eye EOMI Respiratory: Normal Breath Sounds, No Accessory Muscle Use, No Respiratory Distress Cardiovascular: Regular Rate, Rhythm, Normal Peripheral Pulses Gastrointestinal: Normal Bowel Sounds, Non Tender, Soft Extremity: Normal Capillary Refill, Normal Inspection, Other (Right upper extremity has a PICC line in place. No surrounding erythema no induration) Neurologic/Psychiatric: Alert, Oriented x3 Skin: Normal Color, Warm/Dry Progress/Results/Core Measures Suspected Sepsis SIRS Temperature: Pulse: Respiratory Rate: Laboratory Tests 10/22/21 15:24: Blood Pressure / Mean: Laboratory Tests 10/22/21 15:24: Results/Orders Lab Results Laboratory Tests Test 10/22/21 15:15 10/22/21 15:24 Range/Units Urine Opiates Screen NEGATIVE NEGATIVE Urine Oxycodone Screen POSITIVE H NEGATIVE Urine Methadone Screen NEGATIVE NEGATIVE Urine Propoxyphene Screen NEGATIVE NEGATIVE Urine Barbiturates Screen NEGATIVE NEGATIVE Ur Tricyclic Antidepressants Screen NEGATIVE NEGATIVE Urine Phencyclidine Screen NEGATIVE NEGATIVE Urine Amphetamines Screen NEGATIVE NEGATIVE Urine Methamphetamines Screen NEGATIVE NEGATIVE Urine Benzodiazepines Screen POSITIVE H NEGATIVE Urine Cocaine Screen NEGATIVE NEGATIVE Urine Cannabinoids Screen POSITIVE H NEGATIVE My Orders Orders - CLARISA BUTLER APRN Us Venous Upper Ext Rt (10/22/21 13:49) Alteplase (Cathflo) Injection (Cathflo (10/22/21 14:00) Vancomycin,Trough (10/22/21 13:55) Cbc With Automated Diff (10/22/21 13:55) Basic Metabolic Panel (10/22/21 13:55) Ua Culture If Indicated (10/22/21 14:01) Drug Screen Stat (Urine) (10/22/21 14:01) Water (Sterile) For Injection (Sterile W (10/22/21 14:56) Prochlorperazine Injection (Compazine In (10/22/21 15:15) Ed Iv/Invasive Line Start (10/22/21 15:11) Medications Given in ED Current Medications Medications Dose Ordered Sig/Faiza Route Start Time Stop Time Status Last Admin Dose Admin Alteplase, Recombinant 2 mg ONCE ONCE IV 10/22/21 14:00 10/22/21 14:01 DC 10/22/21 15:32 2 MG Prochlorperazine Edisylate 10 mg ONCE ONCE IV 10/22/21 15:15 10/22/21 15:16 DC 10/22/21 15:32 10 MG Vital Signs/I&O 10/22/21 13:45 Temp 36.9 Pulse 87 Resp 20 B/P (MAP) 159/92 (114) Pulse Ox 97 Capillary Refill : Departure Communication (Admissions) 1500-PICC does flush, albeit slowly. Does not draw. Subsequently 2 mg of Activase instilled into the PICC line at this time. Peripheral IV started on the left forearm 1547-PICC is being flushed now with saline. The Cathflo has been setting for about 40 minutes within the PICC. Her drug screen is positive for benzodiazepines and opiates, she is prescribed both of those. Is also positive for THC but I am not going to remove her PICC line because of substance use in the form of only THC. The PICC line now flushes and draws freely according to RN. Impression Primary Impression: Occluded PICC line Disposition: HOME, SELF-CARE Condition: Stable Departure-Patient Inst. Decision time for Depature: 15:49 Referrals: VIKY BRUNO MD (PCP/Family) Primary Care Physician Patient Instructions: NO INSTRUCTIONS GIVEN, Evaristo-Zeng Drain Add. Discharge Instructions: All discharge instructions reviewed with patient and/or family. Voiced understanding. Copy Copies To 1: NICOLE URENA MD, PETER J APRN Oct 22, 2021 13:54
[2021-10-22] MEDS ORDERED: ALTEPLASE 2 MG (CATHFLO) IV ONE (14:00)
[2021-10-22] MEDS ORDERED: WATER (STERILE) FOR INJECTION 10 ML ONE (14:56)
--- NOTE | 2021-10-22 15:08 | Diagnostic Imaging Report ---
EXAMINATION: US Upper Extremity Venous Duplex Right. TECHNIQUE: Multiple real-time grayscale images were obtained over the right upper extremity in various projections. Additional spectral analysis and color Doppler duplex images were also obtained. HISTORY: Swelling COMPARISON: None available. FINDINGS: The right jugular vein, subclavian vein, cephalic vein and axillary vein are patent with normal alvarado scale and doppler appearance. The veins of the distal arm are patent. There is normal respiratory variation and augmentation. IMPRESSION: 1. No DVT of the right upper extremity. Dictated by: Dictated on workstation # [id number]
[2021-10-22] MEDS ORDERED: PROCHLORPERAZINE 10 MG/2ML INJ (COMPAZINE) IV ONE (15:15)
[2021-10-22 15:28] LABS: BILIRUBIN,URINE NEGATIVE (NEGATIVE); CLARITY,URINE CLEAR; COLOR,URINE YELLOW; GLUCOSE, URINE (UA) NEGATIVE (NEGATIVE); KETONES,URINE NEGATIVE (NEGATIVE); LEUKOCYTE ESTERASE ,URINE NEGATIVE (NEGATIVE); NITRITE,URINE NEGATIVE (NEGATIVE); PH,URINE 6.5 (5-9); PROTEIN,URINE NEGATIVE (NEGATIVE)
[2021-10-22 15:44] LABS: AMPHETAMINE SCREEN, URINE NEGATIVE (NEGATIVE); BENZODIAZEPINES SCREEN URINE POSITIVE (NEGATIVE); CANNABINOID SCREEN, URINE POSITIVE (NEGATIVE); COCAINE SCREEN URINE NEGATIVE (NEGATIVE); METHAMPHETAMINE SCREEN URINE S NEGATIVE (NEGATIVE)
[2021-10-22 15:45] LABS: BARBITURATE SCREEN URINE NEGATIVE (NEGATIVE); METHADONE STAT NEGATIVE (NEGATIVE); OPIATE SCREEN URINE NEGATIVE (NEGATIVE); OXYCODONE STAT POSITIVE (NEGATIVE); PROPOXYPHENE STAT NEGATIVE (NEGATIVE); TRICYCLIC ANTIDEPRESSANTS SCRE NEGATIVE (NEGATIVE)
[2021-10-22 15:46] LABS: BASOPHILS % (AUTO) 1 % (0-10); EOSINOPHILS # (AUTO) 0.2 10^3/uL (0.0-0.3); EOSINOPHILS % (AUTO) 3 % (0-10); HEMATOCRIT 33 % (35-52); HEMOGLOBIN 10.5 g/dL (11.5-16.0); LYMPHOCYTES # (AUTO) 1.4 10^3/uL (1.0-4.0); LYMPHOCYTES % (AUTO) 19 % (12-44); MEAN CORPUSCULAR HEMOGLOBIN 27 pg (25-34); MEAN CORPUSCULAR HGB CONC 32 g/dL (32-36); MEAN CORPUSCULAR VOLUME 86 fL (80-99); MEAN PLATELET VOLUME 10.4 fL (9.0-12.2); MONOCYTES # (AUTO) 0.6 10^3/uL (0.0-1.0); MONOCYTES % (AUTO) 8 % (0-12); NEUTROPHILS # (AUTO) 5.3 10^3/uL (1.8-7.8); NEUTROPHILS % (AUTO) 70 % (42-75); PLATELET COUNT 253 10^3/uL (130-400); WHITE BLOOD COUNT 7.6 10^3/uL (4.3-11.0)
[2021-10-22 16:07] LABS: BACTERIA,URINE NEGATIVE /HPF; RBC,URINE RARE /HPF; SQUAMOUS EPITHELIAL CELL,UR 0-2 /HPF; WBC,URINE 0-2 /HPF
[2021-10-22 16:17] LABS: CALCIUM 8.7 MG/DL (8.5-10.1); CREATININE SERUM 0.83 MG/DL (0.60-1.30); POTASSIUM 3.7 MMOL/L (3.6-5.0)
[2021-10-22 16:25] VITALS: BP 148/88
== END 2021-10-22 16:25 | disposition home or self-care (01) ==
LOC: EDUNIT# 13:30 → ER 13:31
DX: T82.898A Other specified complication of vascular prosthetic devices, implants and grafts, initial encounter (principal); Z91.040 Latex allergy status
CPT/HCPCS: 36415; 80048; 80202; 80306; 81000; 85025

== ENCOUNTER → 2021-10-25 | Outpatient (CLI) | payer MEDICAID | LOC: WOUNDCARE 14:07 | PROVIDERS: ATTEND Family Medicine | DX: S31.102A Unspecified open wound of abdominal wall, epigastric region without penetration into peritoneal cavity, initial encounter (principal); T81.31XA Disruption of external operation (surgical) wound, not elsewhere classified, initial encounter; E11.622 Type 2 diabetes mellitus with other skin ulcer; L98.492 Non-pressure chronic ulcer of skin of other sites with fat layer exposed; E66.01 Morbid (severe) obesity due to excess calories; E11.43 Type 2 diabetes mellitus with diabetic autonomic (poly)neuropathy; K31.84 Gastroparesis; B18.2 Chronic viral hepatitis C; L02.211 Cutaneous abscess of abdominal wall; R11.2 Nausea with vomiting, unspecified; B95.62 Methicillin resistant Staphylococcus aureus infection as the cause of diseases classified elsewhere; E11.52 Type 2 diabetes mellitus with diabetic peripheral angiopathy with gangrene; I96 Gangrene, not elsewhere classified | CPT/HCPCS: 11042; 97605 ==

== ENCOUNTER → 2021-10-26 | Outpatient (CLI) | payer MEDICAID ==
[2021-10-26 11:46] LABS: BASOPHILS % (AUTO) 1 % (0-10); EOSINOPHILS # (AUTO) 0.2 10^3/uL (0.0-0.3); EOSINOPHILS % (AUTO) 3 % (0-10); HEMATOCRIT 33 % (35-52); HEMOGLOBIN 10.7 g/dL (11.5-16.0); LYMPHOCYTES # (AUTO) 1.3 10^3/uL (1.0-4.0); LYMPHOCYTES % (AUTO) 18 % (12-44); MEAN CORPUSCULAR HEMOGLOBIN 27 pg (25-34); MEAN CORPUSCULAR HGB CONC 32 g/dL (32-36); MEAN CORPUSCULAR VOLUME 85 fL (80-99); MONOCYTES # (AUTO) 0.5 10^3/uL (0.0-1.0); MONOCYTES % (AUTO) 7 % (0-12); NEUTROPHILS # (AUTO) 5.3 10^3/uL (1.8-7.8); NEUTROPHILS % (AUTO) 72 % (42-75); PLATELET COUNT 281 10^3/uL (130-400); WHITE BLOOD COUNT 7.3 10^3/uL (4.3-11.0)
[2021-10-26 12:10] LABS: BILIRUBIN,TOTAL 0.2 MG/DL (0.1-1.0); CALCIUM 9.2 MG/DL (8.5-10.1); CREATININE SERUM 0.71 MG/DL (0.60-1.30); POTASSIUM 4.2 MMOL/L (3.6-5.0)
[2021-10-26 12:11] LABS: ALBUMIN 3.7 GM/DL (3.2-4.5); TOTAL PROTEIN 6.7 GM/DL (6.4-8.2)
[2021-10-26 15:24] LABS: VANCOMYCIN,TROUGH 12.3 UG/ML (10.0-20.0)
== END ==
LOC: IHC 11:33
PROVIDERS: ATTEND Family Medicine
DX: T81.49XA Infection following a procedure, other surgical site, initial encounter (principal)
CPT/HCPCS: 80053; 80202; 85025

== ENCOUNTER → 2021-11-01 | Outpatient (CLI) | payer MEDICAID | LOC: WOUNDCARE 11:59 | PROVIDERS: ATTEND Family Medicine | DX: S31.102A Unspecified open wound of abdominal wall, epigastric region without penetration into peritoneal cavity, initial encounter (principal); T81.31XA Disruption of external operation (surgical) wound, not elsewhere classified, initial encounter; E11.622 Type 2 diabetes mellitus with other skin ulcer; L98.492 Non-pressure chronic ulcer of skin of other sites with fat layer exposed; E66.01 Morbid (severe) obesity due to excess calories; E11.43 Type 2 diabetes mellitus with diabetic autonomic (poly)neuropathy; K31.84 Gastroparesis; B18.2 Chronic viral hepatitis C; L02.211 Cutaneous abscess of abdominal wall; R11.2 Nausea with vomiting, unspecified; B95.62 Methicillin resistant Staphylococcus aureus infection as the cause of diseases classified elsewhere; E11.52 Type 2 diabetes mellitus with diabetic peripheral angiopathy with gangrene; I96 Gangrene, not elsewhere classified | CPT/HCPCS: 11042; 97605 ==

== ENCOUNTER → 2021-11-01 | Outpatient (CLI) | payer MEDICAID ==
[2021-11-01 13:36] LABS: BASOPHILS % (AUTO) 0 % (0-10); EOSINOPHILS # (AUTO) 0.2 10^3/uL (0.0-0.3); EOSINOPHILS % (AUTO) 2 % (0-10); HEMATOCRIT 39 % (35-52); HEMOGLOBIN 12.7 g/dL (11.5-16.0); LYMPHOCYTES # (AUTO) 1.9 10^3/uL (1.0-4.0); LYMPHOCYTES % (AUTO) 19 % (12-44); MEAN CORPUSCULAR HEMOGLOBIN 27 pg (25-34); MEAN CORPUSCULAR HGB CONC 32 g/dL (32-36); MEAN CORPUSCULAR VOLUME 84 fL (80-99); MEAN PLATELET VOLUME 9.8 fL (9.0-12.2); MONOCYTES # (AUTO) 0.6 10^3/uL (0.0-1.0); MONOCYTES % (AUTO) 6 % (0-12); NEUTROPHILS # (AUTO) 7.2 10^3/uL (1.8-7.8); NEUTROPHILS % (AUTO) 72 % (42-75); PLATELET COUNT 328 10^3/uL (130-400)
[2021-11-01 13:55] LABS: BILIRUBIN,TOTAL 0.4 MG/DL (0.1-1.0); CALCIUM 9.4 MG/DL (8.5-10.1); CREATININE SERUM 0.8 MG/DL (0.60-1.30); POTASSIUM 3.9 MMOL/L (3.6-5.0); TOTAL PROTEIN 7.5 GM/DL (6.4-8.2)
== END ==
LOC: LAB 13:03
PROVIDERS: ATTEND Family Medicine
DX: R11.2 Nausea with vomiting, unspecified (principal)
CPT/HCPCS: 36415; 80053; 85025

== ENCOUNTER → 2021-11-04 | Outpatient (CLI) | payer MEDICAID | LOC: WOUNDCARE 13:44 | PROVIDERS: ATTEND Family Medicine | DX: S31.109A Unspecified open wound of abdominal wall, unspecified quadrant without penetration into peritoneal cavity, initial encounter (principal); J44.9 Chronic obstructive pulmonary disease, unspecified; I11.0 Hypertensive heart disease with heart failure; I50.9 Heart failure, unspecified; E11.9 Type 2 diabetes mellitus without complications | CPT/HCPCS: 97605 ==

== ENCOUNTER → 2021-11-08 | Outpatient (CLI) | payer MEDICAID | LOC: WOUNDCARE 13:45 | PROVIDERS: ATTEND Family Medicine | DX: S31.102A Unspecified open wound of abdominal wall, epigastric region without penetration into peritoneal cavity, initial encounter (principal); T81.31XA Disruption of external operation (surgical) wound, not elsewhere classified, initial encounter; L98.492 Non-pressure chronic ulcer of skin of other sites with fat layer exposed; E11.621 Type 2 diabetes mellitus with foot ulcer; E66.01 Morbid (severe) obesity due to excess calories; K31.84 Gastroparesis; B18.2 Chronic viral hepatitis C; L02.211 Cutaneous abscess of abdominal wall; R11.2 Nausea with vomiting, unspecified; B95.62 Methicillin resistant Staphylococcus aureus infection as the cause of diseases classified elsewhere | CPT/HCPCS: 11042; 97605 ==

== ENCOUNTER → 2021-11-11 | Outpatient (CLI) | payer MEDICAID | LOC: WOUNDCARE 13:53 | PROVIDERS: ATTEND Family Medicine | DX: S31.109A Unspecified open wound of abdominal wall, unspecified quadrant without penetration into peritoneal cavity, initial encounter (principal); J44.9 Chronic obstructive pulmonary disease, unspecified; E11.9 Type 2 diabetes mellitus without complications; I11.0 Hypertensive heart disease with heart failure; I50.9 Heart failure, unspecified | CPT/HCPCS: 97605 ==

== ENCOUNTER → 2021-11-15 | Outpatient (CLI) | payer MEDICAID | LOC: WOUNDCARE 12:29 | PROVIDERS: ATTEND Family Medicine | DX: S31.102A Unspecified open wound of abdominal wall, epigastric region without penetration into peritoneal cavity, initial encounter (principal); T81.31XA Disruption of external operation (surgical) wound, not elsewhere classified, initial encounter; E11.622 Type 2 diabetes mellitus with other skin ulcer; L98.492 Non-pressure chronic ulcer of skin of other sites with fat layer exposed; E66.01 Morbid (severe) obesity due to excess calories; K31.84 Gastroparesis; B18.2 Chronic viral hepatitis C; L02.211 Cutaneous abscess of abdominal wall; R11.2 Nausea with vomiting, unspecified; B37.2 Candidiasis of skin and nail; E11.52 Type 2 diabetes mellitus with diabetic peripheral angiopathy with gangrene; I96 Gangrene, not elsewhere classified | CPT/HCPCS: 11042 ==

== ENCOUNTER → 2021-11-22 | Outpatient (CLI) | payer MEDICAID | LOC: WOUNDCARE 13:17 | PROVIDERS: ATTEND Family Medicine | DX: S31.102A Unspecified open wound of abdominal wall, epigastric region without penetration into peritoneal cavity, initial encounter (principal); T81.31XA Disruption of external operation (surgical) wound, not elsewhere classified, initial encounter; L98.492 Non-pressure chronic ulcer of skin of other sites with fat layer exposed; E11.622 Type 2 diabetes mellitus with other skin ulcer; E66.01 Morbid (severe) obesity due to excess calories; K31.84 Gastroparesis; B18.2 Chronic viral hepatitis C; L02.211 Cutaneous abscess of abdominal wall; E11.52 Type 2 diabetes mellitus with diabetic peripheral angiopathy with gangrene | CPT/HCPCS: 11042 ==

== ENCOUNTER → 2021-11-30 | Outpatient (CLI) | payer MEDICAID | LOC: WOUNDCARE 13:44 | PROVIDERS: ATTEND Family Medicine | DX: S31.102A Unspecified open wound of abdominal wall, epigastric region without penetration into peritoneal cavity, initial encounter (principal); T81.31XA Disruption of external operation (surgical) wound, not elsewhere classified, initial encounter; L98.492 Non-pressure chronic ulcer of skin of other sites with fat layer exposed; E11.622 Type 2 diabetes mellitus with other skin ulcer; E66.01 Morbid (severe) obesity due to excess calories; K31.84 Gastroparesis; B18.2 Chronic viral hepatitis C; L02.211 Cutaneous abscess of abdominal wall; E11.52 Type 2 diabetes mellitus with diabetic peripheral angiopathy with gangrene | CPT/HCPCS: 11042 ==

== ENCOUNTER → 2021-12-06 | Outpatient (CLI) | payer MEDICAID | LOC: WOUNDCARE 13:13 | PROVIDERS: ATTEND Family Medicine | DX: S31.102A Unspecified open wound of abdominal wall, epigastric region without penetration into peritoneal cavity, initial encounter (principal); T81.31XA Disruption of external operation (surgical) wound, not elsewhere classified, initial encounter; L98.492 Non-pressure chronic ulcer of skin of other sites with fat layer exposed; E11.622 Type 2 diabetes mellitus with other skin ulcer; E66.01 Morbid (severe) obesity due to excess calories; K31.84 Gastroparesis; B18.2 Chronic viral hepatitis C; L02.211 Cutaneous abscess of abdominal wall | CPT/HCPCS: 11042 ==

== ENCOUNTER → 2021-12-13 | Outpatient (CLI) | payer MEDICAID | LOC: WOUNDCARE 13:47 | PROVIDERS: ATTEND Family Medicine | DX: S31.102A Unspecified open wound of abdominal wall, epigastric region without penetration into peritoneal cavity, initial encounter (principal); T81.31XA Disruption of external operation (surgical) wound, not elsewhere classified, initial encounter; E11.622 Type 2 diabetes mellitus with other skin ulcer; E66.01 Morbid (severe) obesity due to excess calories; L98.492 Non-pressure chronic ulcer of skin of other sites with fat layer exposed; K31.84 Gastroparesis; B18.2 Chronic viral hepatitis C; L02.211 Cutaneous abscess of abdominal wall; R11.2 Nausea with vomiting, unspecified | CPT/HCPCS: 11042; 87070; 87077; 87205 ==

== ENCOUNTER → 2021-12-20 | Outpatient (CLI) | payer MEDICAID | LOC: WOUNDCARE 13:27 | PROVIDERS: ATTEND Family Medicine | DX: S31.102A Unspecified open wound of abdominal wall, epigastric region without penetration into peritoneal cavity, initial encounter (principal); T81.31XA Disruption of external operation (surgical) wound, not elsewhere classified, initial encounter; L98.492 Non-pressure chronic ulcer of skin of other sites with fat layer exposed; E11.622 Type 2 diabetes mellitus with other skin ulcer; E66.01 Morbid (severe) obesity due to excess calories; E11.43 Type 2 diabetes mellitus with diabetic autonomic (poly)neuropathy; K31.84 Gastroparesis; B18.2 Chronic viral hepatitis C; L02.211 Cutaneous abscess of abdominal wall; E11.52 Type 2 diabetes mellitus with diabetic peripheral angiopathy with gangrene; I96 Gangrene, not elsewhere classified; Z68.35 Body mass index [BMI] 35.0-35.9, adult | CPT/HCPCS: 11042 ==

== ENCOUNTER → 2021-12-27 | Outpatient (CLI) | payer MEDICAID | LOC: WOUNDCARE 13:33 | PROVIDERS: ATTEND Family Medicine | DX: S31.109A Unspecified open wound of abdominal wall, unspecified quadrant without penetration into peritoneal cavity, initial encounter (principal); L98.492 Non-pressure chronic ulcer of skin of other sites with fat layer exposed; T81.31XA Disruption of external operation (surgical) wound, not elsewhere classified, initial encounter; E11.622 Type 2 diabetes mellitus with other skin ulcer; E66.01 Morbid (severe) obesity due to excess calories; K31.84 Gastroparesis; B18.2 Chronic viral hepatitis C; L02.211 Cutaneous abscess of abdominal wall; E11.52 Type 2 diabetes mellitus with diabetic peripheral angiopathy with gangrene; I96 Gangrene, not elsewhere classified | CPT/HCPCS: 99212 ==

== ENCOUNTER → 2022-01-05 | Outpatient (CLI) | payer MEDICAID | LOC: WOUNDCARE 13:02 | PROVIDERS: ATTEND Family Medicine | DX: S31.102A Unspecified open wound of abdominal wall, epigastric region without penetration into peritoneal cavity, initial encounter (principal); T81.31XA Disruption of external operation (surgical) wound, not elsewhere classified, initial encounter; L98.492 Non-pressure chronic ulcer of skin of other sites with fat layer exposed; E11.622 Type 2 diabetes mellitus with other skin ulcer; E66.01 Morbid (severe) obesity due to excess calories; K31.84 Gastroparesis; B18.2 Chronic viral hepatitis C; L02.211 Cutaneous abscess of abdominal wall; E11.52 Type 2 diabetes mellitus with diabetic peripheral angiopathy with gangrene | CPT/HCPCS: 11042 ==

== ENCOUNTER → 2022-01-17 | Outpatient (CLI) | payer MEDICAID | LOC: WOUNDCARE 12:17 | PROVIDERS: ATTEND Family Medicine | DX: S31.102A Unspecified open wound of abdominal wall, epigastric region without penetration into peritoneal cavity, initial encounter (principal); T81.31XA Disruption of external operation (surgical) wound, not elsewhere classified, initial encounter; L98.492 Non-pressure chronic ulcer of skin of other sites with fat layer exposed; E11.622 Type 2 diabetes mellitus with other skin ulcer; E66.01 Morbid (severe) obesity due to excess calories; K31.84 Gastroparesis; B18.2 Chronic viral hepatitis C; L02.211 Cutaneous abscess of abdominal wall; B37.2 Candidiasis of skin and nail; E11.52 Type 2 diabetes mellitus with diabetic peripheral angiopathy with gangrene | CPT/HCPCS: 11042 ==

== ENCOUNTER → 2022-01-17 | Outpatient (CLI) | payer MEDICAID ==
[2022-01-17 14:01] LABS: CALCIUM 9.3 MG/DL (8.5-10.1); CREATININE SERUM 0.85 MG/DL (0.60-1.30); POTASSIUM 4.1 MMOL/L (3.6-5.0)
== END ==
LOC: LAB 13:12
PROVIDERS: ATTEND Family Medicine
DX: E11.622 Type 2 diabetes mellitus with other skin ulcer (principal); S31.102A Unspecified open wound of abdominal wall, epigastric region without penetration into peritoneal cavity, initial encounter
CPT/HCPCS: 36415; 80048; 82306; 82607; 83036; 84134

== ENCOUNTER → 2022-01-24 | Outpatient (CLI) | payer MEDICAID | LOC: WOUNDCARE 13:54 | PROVIDERS: ATTEND Family Medicine | DX: S31.102A Unspecified open wound of abdominal wall, epigastric region without penetration into peritoneal cavity, initial encounter (principal); T81.31XA Disruption of external operation (surgical) wound, not elsewhere classified, initial encounter; L98.492 Non-pressure chronic ulcer of skin of other sites with fat layer exposed; E11.622 Type 2 diabetes mellitus with other skin ulcer; E66.01 Morbid (severe) obesity due to excess calories; E11.43 Type 2 diabetes mellitus with diabetic autonomic (poly)neuropathy; K31.84 Gastroparesis; B18.2 Chronic viral hepatitis C; B37.2 Candidiasis of skin and nail; E11.52 Type 2 diabetes mellitus with diabetic peripheral angiopathy with gangrene; I96 Gangrene, not elsewhere classified; Z68.32 Body mass index [BMI] 32.0-32.9, adult | CPT/HCPCS: 11042 ==

== ENCOUNTER → 2022-01-28 | Outpatient (CLI) | payer MEDICAID ==
[~2022-01-28] MED LIST changes: +CATHETER FLUSH 10 ML SYR IV PRN; +HOLD METFORMIN - RECEIVED CONTRAST 20 ML VIAL IV SCH; +IOHEXOL 350 MG/ML 100 ML (OMNIPAQUE 350) VIAL IV ONE; +NS 100 ML (IVPB) BAG IV ONE
--- NOTE | 2022-01-28 14:20 | Diagnostic Imaging Report ---
Procedure: CT abdomen with contrast only. Technique: Multiple contiguous axial images were obtained through the abdomen after the administration of intravenous contrast. Auto Exposure Controls were utilized during the CT exam to meet ALARA standards for radiation dose reduction. Date: January 28, 2022. Indication: 46-year-old female, nonhealing ulcer. Evaluation for abscess. Comparison: CT abdomen and pelvis October 15, 2021. Findings: The visualized portions of the lung bases are clear. The heart is not enlarged. There is no pericardial effusion. The liver is unremarkable in size and contour. There is no identified liver lesion. The main, right, left portal veins are patent. The gallbladder surgically absent. There is no biliary ductal dilation. The main pancreatic duct is not abnormally dilated. Unremarkable appearance of the pancreatic parenchyma. The spleen is normal in size. The adrenal glands are unremarkable. Unremarkable appearance of the renal parenchyma. The urinary collecting systems are not distended in their visualized extent. There is wall thickening of the right colon and proximal aspect of the transverse colon. The intestinal tract is not distended in its visualized extent. There is no free intracranial air. There is no drainable fluid collection. There is no free fluid in the abdomen. There are atherosclerotic calcifications. There is no identified abnormally enlarged lymph node in the abdomen meeting CT size criteria for adenopathy. There is a large skin defect in the right anterior abdomen which extends towards the abdominal wall musculature. There is no extension into the abdominal cavity. There is no adjacent fluid collection. There is no identified acute bony abnormality. Impression: 1. Large defect in the right anterior abdominal wall without adjacent fluid collection or abscess. 2. Wall thickening of the proximal aspect of the transverse colon and right colon which may reflect a nonspecific colitis. Infectious and inflammatory etiologies are favored. Dictated by: Dictated on workstation # [id number]
== END ==
LOC: RAD FS 01-25 14:15 → RAD 11:09
PROVIDERS: ATTEND Family Medicine
DX: S31.102A Unspecified open wound of abdominal wall, epigastric region without penetration into peritoneal cavity, initial encounter (principal); T81.31XA Disruption of external operation (surgical) wound, not elsewhere classified, initial encounter; L98.492 Non-pressure chronic ulcer of skin of other sites with fat layer exposed; E11.622 Type 2 diabetes mellitus with other skin ulcer; E66.01 Morbid (severe) obesity due to excess calories; K31.84 Gastroparesis; B18.2 Chronic viral hepatitis C; L02.211 Cutaneous abscess of abdominal wall; K63.89 Other specified diseases of intestine; B37.2 Candidiasis of skin and nail; X58.XXXA Exposure to other specified factors, initial encounter
CPT/HCPCS: 74160

== ENCOUNTER → 2022-01-31 | Outpatient (CLI) | payer MEDICAID ==
[~2022-01-31] MED LIST changes: -CATHETER FLUSH 10 ML SYR IV PRN; -HOLD METFORMIN - RECEIVED CONTRAST 20 ML VIAL IV SCH; -IOHEXOL 350 MG/ML 100 ML (OMNIPAQUE 350) VIAL IV ONE; -NS 100 ML (IVPB) BAG IV ONE
== END ==
LOC: WOUNDCARE 13:46
PROVIDERS: ATTEND Family Medicine
DX: S31.102A Unspecified open wound of abdominal wall, epigastric region without penetration into peritoneal cavity, initial encounter (principal); T81.31XA Disruption of external operation (surgical) wound, not elsewhere classified, initial encounter; L98.492 Non-pressure chronic ulcer of skin of other sites with fat layer exposed; E11.622 Type 2 diabetes mellitus with other skin ulcer; E66.01 Morbid (severe) obesity due to excess calories; K31.84 Gastroparesis; B18.2 Chronic viral hepatitis C; R11.2 Nausea with vomiting, unspecified; B37.2 Candidiasis of skin and nail; E11.52 Type 2 diabetes mellitus with diabetic peripheral angiopathy with gangrene; I96 Gangrene, not elsewhere classified
CPT/HCPCS: 11042

== ENCOUNTER → 2022-02-07 | Outpatient (CLI) | payer MEDICAID | LOC: WOUNDCARE 13:28 | PROVIDERS: ATTEND Family Medicine | DX: S31.102A Unspecified open wound of abdominal wall, epigastric region without penetration into peritoneal cavity, initial encounter (principal); T81.31XA Disruption of external operation (surgical) wound, not elsewhere classified, initial encounter; L98.492 Non-pressure chronic ulcer of skin of other sites with fat layer exposed; E11.622 Type 2 diabetes mellitus with other skin ulcer; E66.01 Morbid (severe) obesity due to excess calories; E11.43 Type 2 diabetes mellitus with diabetic autonomic (poly)neuropathy; K31.84 Gastroparesis; B18.2 Chronic viral hepatitis C; Z68.32 Body mass index [BMI] 32.0-32.9, adult | CPT/HCPCS: 11042 ==

== ENCOUNTER → 2022-02-14 | Outpatient (CLI) | payer MEDICAID | LOC: WOUNDCARE 13:53 | PROVIDERS: ATTEND Family Medicine | DX: S31.102A Unspecified open wound of abdominal wall, epigastric region without penetration into peritoneal cavity, initial encounter (principal); T81.31XA Disruption of external operation (surgical) wound, not elsewhere classified, initial encounter; L98.492 Non-pressure chronic ulcer of skin of other sites with fat layer exposed; E11.622 Type 2 diabetes mellitus with other skin ulcer; E66.01 Morbid (severe) obesity due to excess calories; E11.43 Type 2 diabetes mellitus with diabetic autonomic (poly)neuropathy; I96 Gangrene, not elsewhere classified; E11.52 Type 2 diabetes mellitus with diabetic peripheral angiopathy with gangrene; K31.84 Gastroparesis; B18.2 Chronic viral hepatitis C; Z68.32 Body mass index [BMI] 32.0-32.9, adult | CPT/HCPCS: 11042 ==

== ENCOUNTER 2022-03-03 12:47 | Emergency (ER) | payer MEDICAID ==
[~2022-03-03] VITALS: Ht 160 cm; Wt 81.0 kg
[~2022-03-03 12:47] MED LIST changes: +LEVO-55 PO; -LEVO500T81 PO
[2022-03-03] MEDS ORDERED: NS IV 1000 ML 1,000 ML IV SCH (13:45)
[2022-03-03] MEDS ORDERED: PROCHLORPERAZINE 10 MG/2ML INJ (COMPAZINE) IV ONE (13:45)
[2022-03-03] MEDS ORDERED: diphenhydrAMINE 50 MG/ML INJ (BENADRYL) IVP ONE (13:45)
--- NOTE | 2022-03-03 13:46 | ED GI ---
General Chief Complaint: Abdominal/GI Problems Stated Complaint: VOMITING, STOMACH PAIN, DIZZY Source of Information: Patient Exam Limitations: No Limitations History of Present Illness Date Seen by Provider: Mar 03, 2022 Time Seen by Provider: 13:17 Initial Comments 46-year-old female presents emergency room today for nausea and vomiting. This is a chronic problem for her but current episode started this morning and has been persistent. She is taking Phenergan at home without much relief. She has a history of cyclic vomiting, gastroparesis from what she states was a previous pylorotomy surgery. She has had issues with nausea vomiting and chronic abdominal pain and wounds since that time. She denies any fevers or chills. She is currently not on any antibiotics for her abdominal wounds. She states current episode is similar to previous episodes that she has had with gastroparesis, cyclic vomiting. Allergies and Home Medications Allergies Coded Allergies: adhesive tape (Verified Allergy, Unknown, 09/10/21) chlorhexidine (Verified Allergy, Unknown, 09/10/21) fluvoxamine (Verified Allergy, Unknown, 09/10/21) hydromorphone (Verified Allergy, Unknown, 09/10/21) latex (Verified Allergy, Unknown, 09/10/21) meperidine (Verified Allergy, Unknown, 09/10/21) metoclopramide (Verified Allergy, Unknown, Tardive Dyskinesia, 09/10/21) morphine (Verified Allergy, Unknown, 09/10/21) promethazine (Verified Allergy, Unknown, 09/10/21) sulfamethoxazole (Verified Allergy, Unknown, 09/10/21) trimethoprim (Verified Allergy, Unknown, 09/10/21) Patient Home Medication List Home Medication List Reviewed: Yes Albuterol Sulfate (Proair Hfa) 1 Puff Puff, 2 PUFF IH Q4H PRN for SHORTNESS OF BREATH, (Reported) Entered as Reported by: WILLIAN GARZA on 07/28/18 1032 Atorvastatin Calcium (Atorvastatin Calcium) 10 Mg Tablet, 10 MG PO DAILY, (Reported) Entered as Reported by: ADAN VALLADARES on 08/07/21 0200 Cetirizine HCl (Cetirizine HCl) 10 Mg Tablet, 10 MG PO HS, (Reported) Entered as Reported by: ADAN VALLADARES on 08/07/21 0211 Diazepam (Diazepam) 5 Mg Tablet, 5 MG PO BID Prescribed by: EULALIA TRACEY on 08/08/21 1044 Fentanyl (Fentanyl Patch 25 MCG) 1 Each Patch.td72, 25 MCG TD Q72H, (Reported) Entered as Reported by: MIRLANDE FINLEY on 09/09/21 1050 Fluconazole (Fluconazole) 100 Mg Tablet, 100 MG PO DAILY, (Reported) Entered as Reported by: MIRLANDE FINLEY on 09/09/21 0949 Fluticasone Propionate (Fluticasone Propionate) 16 Gm Lyerly.susp, 2 SPRAYS NA DAILY, (Reported) Entered as Reported by: ADAN VALLADARES on 08/07/21 0207 Fluticasone/Vilanterol (Breo Ellipta 100-25 Mcg INH) 1 Each Blst.w.dev, 2 PUFF IH DAILY, (Reported) Entered as Reported by: ADAN VALLADARES on 08/07/21 031 Glucagon (Gvoke Hypopen 2-Pack) 1 Mg/0.2 Ml Auto.injct, 1 MG SC for HYPOGLYCEMIA, (Reported) Entered as Reported by: ADAN VALLADARES on 08/07/21 031 Insulin Aspart (Novolog Flexpen) 300 Units/3 Ml Solution, 7 UNITS SQ AC Prescribed by: BRIANA MOORE on 07/31/18 0955 Insulin Detemir (Levemir Flextouch) 100 Unit/1 Ml Insuln.pen, 30 UNIT SQ HS, (Reported) Entered as Reported by: ADAN VALLADARES on 08/07/21 031 Ipratropium/Albuterol Sulfate (Iprat-Albut 0.5-3(2.5) mg/3 ml) 3 Ml Ampul.neb, 3 ML IH Q4H PRN for SHORTNESS OF BREATH, (Reported) Entered as Reported by: WILLIAN GARZA on 07/28/18 1033 Lactobacillus Acidophilus (Probiotic) 1 Each Capsule, 2 EACH PO HS PRN for CONSTIPATION-1ST LINE, (Reported) Entered as Reported by: ADAN VALLADARES on 08/07/21 033 Lidocaine HCl (Glydo) 6 Ml Jel.pf.desmond, 6 ML MM UD, (Reported) Entered as Reported by: MIRLANDE FINLEY on 09/09/21 0949 Lidocaine HCl/Pf (Lidocaine HCl 4% Ampul) 40 Mg/1 Ml Ampul, 40 MG UD, (Reported) Entered as Reported by: MIRLANDE FINLEY on 09/09/21 0949 Lisinopril (Lisinopril) 10 Mg Tablet, 20 MG PO DAILY, (Reported) Entered as Reported by: ADAN VALLADARES on 08/07/21 020 Metoprolol Tartrate (Metoprolol Tartrate) 25 Mg Tablet, 25 MG PO DAILY, (Reported) Entered as Reported by: ADAN VALLADARES on 08/07/21 020 Omeprazole (Omeprazole) 40 Mg Capsule.dr, 40 MG PO BID, (Reported) Entered as Reported by: ADAN VALLADARES on 08/07/21155 Ondansetron (Ondansetron Odt) 8 Mg Tab.rapdis, 8 MG PO Q8H PRN for NAUSEA-1ST LINE, (Reported) Entered as Reported by: ADAN VALLADARES on 08/07/21 015 Oxycodone HCl (Oxycodone HCl) 5 Mg Tablet, 5-10 MG PO Q6H PRN for PAIN-MODERATE (5-7), (Reported) Entered as Reported by: ADAN VALLADARES on 08/07/21 0325 Potassium Chloride (Potassium Chloride) 20 Meq Tablet.er, 20 MEQ PO BID Prescribed by: SHERYL GREEN on 07/15/212004 Prochlorperazine Maleate (Prochlorperazine Maleate) 10 Mg Tablet, 10 MG PO Q6H PRN for NAUSEA/VOMITING-2ND LINE Prescribed by: RANULFO GOODRICH on 07/29/21 0608 Prochlorperazine Maleate (Compazine) 10 Mg Tablet, 10 MG PO Q6H PRN for nausea Prescribed by: RUFUS BAGLEY on 10/17/21 0046 Promethazine HCl (Promethazine HCl) 50 Mg Tablet, 25 MG PO Q8H PRN for N AUSEA/VOMITING-2ND LINE, (Reported) Entered as Reported by: ADAN VALLADARES on 08/07/21 0158 Promethazine HCl (Promethegan) 12.5 Mg Supp.rect, 12.5 MG MI BID PRN for NAUSEA/VOMITING-3RD LINE, (Reported) Entered as Reported by: ADAN VALLADARES on 08/07/21 0200 Promethazine HCl (Promethazine Tablet) 25 Mg Tablet, 25 MG PO Q6H PRN for NAUSEA/VOMITING Prescribed by: RENALDO EDWARDS on 08/09/21 1412 Trazodone HCl (Trazodone HCl) 150 Mg Tablet, 300 MG PO HS, (Reported) Entered as Reported by: WILLIAN GARZA on 07/28/18 1034 Review of Systems Review of Systems Constitutional: no symptoms reported EENTM: No Symptoms Reported Respiratory: No Symptoms Reported Cardiovascular: No Symptoms Reported Gastrointestinal: Nausea, Vomiting Genitourinary: No Symptoms Reported Musculoskeletal: no symptoms reported Skin: no symptoms reported Psychiatric/Neurological: No Symptoms Reported Endocrine: No Symptoms Reported Hematologic/Lymphatic: No Symptoms Reported Past Ddaheex-Puwsmc-Rwbmpg Hx Patient Social History Tobacco Use?: No Substance use?: No Alcohol Use?: No Immunizations Up To Date First/Initial COVID19 Vaccinat: MODERNA Second COVID19 Vaccination Guy: Third COVID19 Vaccination Date: Seasonal Allergies Seasonal Allergies: Yes Past Medical History Surgery/Hospitalization HX: Gastroparesis, chronic abdominal wound infection with MRSA, jejunostomytube October 2019, gastric stimulator, pyloroplasty, cholecystectomy,hysterectomy, orthopedics, iddm, gerd, cyclic vomitting, asthma, hep c, anx/dep, schizoaffective d/o Surgeries: Yes (carpal tunnel bilat, wound lesions) Abdominal, Gallbladder, Hysterectomy, Orthopedic Respiratory: Yes (inhalers, nebulizer treatments) Asthma Currently Using CPAP: No Currently Using BIPAP: No Cardiac: Yes Heart Murmur, High Cholesterol, Hypertension Neurological: Yes (from head injury - no recent seizures in last 2 years) Concussion, Seizure Disorder Female 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 Disorders: 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 Sexually Transmitted Disease: No HIV/AIDS: No Genitourinary: No Gastrointestinal: Yes (Gastroparesis, hepatitis C, cyclic vomiting) Gastroesophageal Reflux, Chronic Diarrhea, Hepatitis, Ulcer Musculoskeletal: No Endocrine: Yes Diabetes, Insulin dep HEENT: Yes (wears glasses) Hearing Impairment: Denies Cancer: No Psychosocial: Yes (Schizoaffective disorder) Anxiety, Depression Integumentary: Yes (abominal wound) Blood Disorders: No Family Medical History Reviewed Nursing Family Hx No Pertinent Family Hx Physical Exam Vital Signs Vital Signs - First Documented 03/03/22 03/03/22 14:39 16:33 Temp 37.1 Pulse 79 Resp 18 B/P (MAP) 159/104 (122) Pulse Ox 98 O2 Delivery Room Air Capillary Refill : Height/Weight/BMI Height: 5'2.00" Weight: 184lbs. 7.0oz. 83.525266yh; 35.00 BMI Method:Actual General Appearance: WD/WN, mild distress (Vomiting) HEENT: normal ENT inspection, TMs normal, pharynx normal Neck: non-tender, full range of motion, supple, normal inspection Respiratory: chest non-tender, lungs clear, normal breath sounds, no accessory muscle use Cardiovascular: regular rate, rhythm, no edema, no gallop, no JVD, no murmur Gastrointestinal: normal bowel sounds, non tender, soft, no organomegaly, no pulsatile mass, other (There is a wound in the periumbilical region is well- healing with no surrounding cellulitis or erythema.) Extremities: normal range of motion, non-tender, normal inspection, no pedal edema, no calf tenderness, normal capillary refill Back: normal inspection, no CVA tenderness, no vertebral tenderness Neurologic/Psychiatric: alert, normal mood/affect, oriented x 3 Skin: normal color, warm/dry Progress/Results/Core Measures Results/Orders Lab Results Laboratory Tests Test 03/03/22 14:25 Range/Units White Blood Count 11.9 H 4.3-11.0 10^3/uL Red Blood Count 4.70 3.80-5.11 10^6/uL Hemoglobin 14.0 11.5-16.0 g/dL Hematocrit 41 35-52 % Mean Corpuscular Volume 87 80-99 fL Mean Corpuscular Hemoglobin 30 25-34 pg Mean Corpuscular Hemoglobin Concent 34 32-36 g/dL Red Cell Distribution Width 13.5 10.0-14.5 % Platelet Count 243 130-400 10^3/uL Mean Platelet Volume 9.7 9.0-12.2 fL Immature Granulocyte % (Auto) 0 % Neutrophils (%) (Auto) 83 H 42-75 % Lymphocytes (%) (Auto) 12 12-44 % Monocytes (%) (Auto) 5 0-12 % Eosinophils (%) (Auto) 1 0-10 % Basophils (%) (Auto) 0 0-10 % Neutrophils # (Auto) 9.8 H 1.8-7.8 10^3/uL Lymphocytes # (Auto) 1.4 1.0-4.0 10^3/uL Monocytes # (Auto) 0.5 0.0-1.0 10^3/uL Eosinophils # (Auto) 0.1 0.0-0.3 10^3/uL Basophils # (Auto) 0.0 0.0-0.1 10^3/uL Immature Granulocyte # (Auto) 0.0 0.0-0.1 10^3/uL Sodium Level 139 135-145 MMOL/L Potassium Level 4.2 3.6-5.0 MMOL/L Chloride Level 106 98-107 MMOL/L Carbon Dioxide Level 21 21-32 MMOL/L Anion Gap 12 5-14 MMOL/L Blood Urea Nitrogen 10 7-18 MG/DL Creatinine 0.97 0.60-1.30 MG/DL Estimat Glomerular Filtration Rate 73 BUN/Creatinine Ratio 10 Glucose Level 144 H 70-105 MG/DL Calcium Level 9.6 8.5-10.1 MG/DL My Orders Orders - CURTISSONYA DO Cbc With Automated Diff (03/03/22 13:36) Basic Metabolic Panel (03/03/22 13:36) Diphenhydramine Injection (Benadryl Inje (03/03/22 13:45) Prochlorperazine Injection (Compazine In (03/03/22 13:45) Ns Iv 1000 Ml (Sodium Chloride 0.9%) (03/03/22 13:45) Medications Given in ED Vital Signs/I&O 03/03/22 03/03/22 14:39 16:33 Temp 37.1 Pulse 79 85 Resp 18 22 B/P (MAP) 159/104 (122) 210/109 Pulse Ox 98 99 O2 Delivery Room Air Departure Communication (Admissions) Patient provided nausea medicine and reports of some relief. Labs are reassuring. She requests discharge when she is feeling better. She is discharged in stable condition Impression Primary Impression: Cyclic vomiting syndrome Additional Impression: Diabetic gastroparesis Disposition: 01 HOME, SELF-CARE Condition: Stable Departure-Patient Inst. Referrals: SELF,VIKY BALL (PCP) Primary Care Physician Patient Instructions: Nausea and Vomiting, Adult Add. Discharge Instructions: Continue home medications as previously prescribed. Increase your fluids and rest. Return to the emergency department if severe concerns. Follow-up with primary doctor in the next 2 to 3 days All discharge instructions reviewed with patient and/or family. Voiced understanding. SONYA ACEVEDO DO Mar 03, 2022 13:46
[2022-03-03 14:29] LABS: BASOPHILS % (AUTO) 0 % (0-10); EOSINOPHILS # (AUTO) 0.1 10^3/uL (0.0-0.3); EOSINOPHILS % (AUTO) 1 % (0-10); HEMATOCRIT 41 % (35-52); LYMPHOCYTES # (AUTO) 1.4 10^3/uL (1.0-4.0); LYMPHOCYTES % (AUTO) 12 % (12-44); MEAN CORPUSCULAR HEMOGLOBIN 30 pg (25-34); MEAN CORPUSCULAR HGB CONC 34 g/dL (32-36); MEAN CORPUSCULAR VOLUME 87 fL (80-99); MEAN PLATELET VOLUME 9.7 fL (9.0-12.2); MONOCYTES # (AUTO) 0.5 10^3/uL (0.0-1.0); MONOCYTES % (AUTO) 5 % (0-12); NEUTROPHILS # (AUTO) 9.8 10^3/uL (1.8-7.8); NEUTROPHILS % (AUTO) 83 % (42-75); PLATELET COUNT 243 10^3/uL (130-400); WHITE BLOOD COUNT 11.9 10^3/uL (4.3-11.0)
[2022-03-03 14:39] LABS: POTASSIUM 4.2 MMOL/L (3.6-5.0)
[2022-03-03 14:40] LABS: CALCIUM 9.6 MG/DL (8.5-10.1)
[2022-03-03 14:44] LABS: CREATININE SERUM 0.97 MG/DL (0.60-1.30)
[2022-03-03 16:33] VITALS: BP 210/109
== END 2022-03-03 16:33 | disposition home or self-care (01) ==
LOC: EDUNIT# 12:47 → ER 12:48
DX: E11.43 Type 2 diabetes mellitus with diabetic autonomic (poly)neuropathy (principal); K31.84 Gastroparesis; R11.15 Cyclical vomiting syndrome unrelated to migraine; Z90.49 Acquired absence of other specified parts of digestive tract; Z93.4 Other artificial openings of gastrointestinal tract status; Z79.4 Long term (current) use of insulin; Z28.310 Unvaccinated for COVID-19
CPT/HCPCS: 36410; 36415; 76937; 80048; 85025

== ENCOUNTER → 2022-03-11 | Outpatient (CLI) | payer MEDICAID | LOC: WOUNDCARE 10:23 | PROVIDERS: ATTEND Family Medicine | DX: S31.102A Unspecified open wound of abdominal wall, epigastric region without penetration into peritoneal cavity, initial encounter (principal); T81.31XA Disruption of external operation (surgical) wound, not elsewhere classified, initial encounter; L98.492 Non-pressure chronic ulcer of skin of other sites with fat layer exposed; E11.622 Type 2 diabetes mellitus with other skin ulcer; E66.01 Morbid (severe) obesity due to excess calories; E11.43 Type 2 diabetes mellitus with diabetic autonomic (poly)neuropathy; K31.84 Gastroparesis; B18.2 Chronic viral hepatitis C; E11.52 Type 2 diabetes mellitus with diabetic peripheral angiopathy with gangrene | CPT/HCPCS: 99212 ==

== ENCOUNTER → 2022-03-17 | Outpatient (CLI) | payer MEDICAID | LOC: WOUNDCARE 14:04 | PROVIDERS: ATTEND Family Medicine | DX: T81.31XA Disruption of external operation (surgical) wound, not elsewhere classified, initial encounter (principal); S31.102A Unspecified open wound of abdominal wall, epigastric region without penetration into peritoneal cavity, initial encounter; L98.492 Non-pressure chronic ulcer of skin of other sites with fat layer exposed; E11.622 Type 2 diabetes mellitus with other skin ulcer; E11.52 Type 2 diabetes mellitus with diabetic peripheral angiopathy with gangrene; E66.01 Morbid (severe) obesity due to excess calories; E11.43 Type 2 diabetes mellitus with diabetic autonomic (poly)neuropathy; K31.84 Gastroparesis; B18.2 Chronic viral hepatitis C; I96 Gangrene, not elsewhere classified; Z68.32 Body mass index [BMI] 32.0-32.9, adult | CPT/HCPCS: 99212 ==

== ENCOUNTER → 2022-03-28 | Outpatient (CLI) | payer MEDICAID ==
--- NOTE | 2022-03-28 10:21 | Diagnostic Imaging Report ---
INDICATION: Cough PA and lateral views of the chest are obtained. COMPARISON: No previous study is available for comparison at this time. FINDINGS: Heart size and pulmonary vasculature are within normal limits, and the lungs are clear, bilaterally. IMPRESSION: Unremarkable chest. Dictated by: Dictated on workstation # [id number]
== END ==
LOC: RAD FS 09:36
PROVIDERS: ATTEND Family Medicine
DX: R05.1 Acute cough (principal)
CPT/HCPCS: 71046

== ENCOUNTER 2023-03-20 05:29 | Outpatient (CLI) | payer MEDICAID ==
[~2023-03-20] VITALS: Ht 157.5 cm; Wt 87.3 kg
[~2023-03-20 05:29] MED LIST changes: +ALBU8.5H6 IH; -INSU100I29 SQ; +INSU100I30 SQ; +POTA-330 PO; -POTA-51 PO; -POTA10CA43 PO; +POTA10CA84 PO; -PROC10TA10 PO; +PROC10TA15 PO; -RT-ALBUINH IH
[2023-03-20] MEDS ORDERED: LACT10PA3 PO (09:56)
[2023-03-20] MEDS ORDERED: CEFD300C3 PO (09:56)
[2023-03-21] MEDS ORDERED: PROM25TA14 PO (16:43)
[2023-03-22] MEDS ORDERED: DOCU100C37 PO (08:07)
[2023-03-22] MEDS ORDERED: IBUP-844 PO (08:07)
[2023-03-22] MEDS ORDERED: OXYC1TAB87 PO (08:07)
== END 2023-03-20 10:43 | disposition home or self-care (01) ==
LOC: PREOP 05:29
PROVIDERS: ATTEND Obstetrics & Gynecology
DX: Z01.818 Encounter for other preprocedural examination (principal)

== ENCOUNTER 2023-03-21 06:09 | Day surgery (SDC) | payer MEDICAID ==
[2023-03-21] VITALS (13 sets, daily range): BP systolic 121–195; BP diastolic 59–94
[~2023-03-21] VITALS: Ht 157.5 cm; Wt 87.3 kg
[~2023-03-21 06:09] MED LIST changes: +LACT10PA3 PO
[2023-03-21 06:53] LABS: BASOPHILS % (AUTO) 0 % (0-10); EOSINOPHILS # (AUTO) 0.1 10^3/uL (0.0-0.3); EOSINOPHILS % (AUTO) 1 % (0-10); HEMATOCRIT 38 % (35-52); HEMOGLOBIN 12.2 g/dL (11.5-16.0); LYMPHOCYTES # (AUTO) 1.2 10^3/uL (1.0-4.0); LYMPHOCYTES % (AUTO) 10 % (12-44); MEAN CORPUSCULAR HEMOGLOBIN 30 pg (25-34); MEAN CORPUSCULAR HGB CONC 32 g/dL (32-36); MEAN CORPUSCULAR VOLUME 93 fL (80-99); MEAN PLATELET VOLUME 10.4 fL (9.0-12.2); MONOCYTES # (AUTO) 0.5 10^3/uL (0.0-1.0); MONOCYTES % (AUTO) 5 % (0-12); NEUTROPHILS # (AUTO) 9.8 10^3/uL (1.8-7.8); NEUTROPHILS % (AUTO) 84 % (42-75); PLATELET COUNT 173 10^3/uL (130-400); WHITE BLOOD COUNT 11.7 10^3/uL (4.3-11.0)
[2023-03-21] MEDS ORDERED: ceFAZolin INJECTION 1,000 MG ONE (06:54)
[2023-03-21] MEDS ORDERED: NS (IVPB) 100 ML 100 ML ONE ×2 (06:55→07:05)
[2023-03-21] MEDS ORDERED: NS (IVPB) 50 ML 50 ML ONE (06:56)
[2023-03-21] MEDS ORDERED: ceFAZolin INJECTION 1,000 MG in NS (IVPB) 50 ML 50 ML IV ONE (07:00)
[2023-03-21] MEDS ORDERED: LACTATED RINGERS 1,000 ML 1,000 ML IV PRN (07:00)
[2023-03-21] MEDS ORDERED: VASOPRESSIN INJECTION 20 UNIT/ML VIAL ONE (07:05)
[2023-03-21] MEDS ORDERED: fentaNYL INJECTION 100 MCG/2 ML VIAL ONE ×2 (07:11→08:46)
[2023-03-21] MEDS ORDERED: MIDAZOLAM INJ 2 MG/2 ML VIAL ONE (07:11)
--- NOTE | 2023-03-21 07:11 | Progress Note-Pre Operative ---
Pre-Operative Progress Note Date of Available H&P: Mar 21, 2023 Date H&P Reviewed: Mar 21, 2023 Time H&P Reviewed: 07:05 History & Physical: H&P Reviewed, Patient Examed, No changes noted Pre-Operative Diagnosis: Grade 2-3 cystocele and rectocele repair DARIAN LOGAN DO Mar 21, 2023 07:11
[2023-03-21] MEDS ORDERED: ANTACID SUSPENSION 30 ML UDC PO PRN (07:15)
[2023-03-21] MEDS ORDERED: HYDROcodone/ACETAMINOPHEN 7.5 MG/325 MG TABLET PO PRN (07:15)
[2023-03-21] MEDS ORDERED: DOCUSATE SODIUM 100 MG CAPSULE PO PRN (07:15)
[2023-03-21] MEDS ORDERED: SIMETHICONE 80 MG CHEWABLE TABLET PO PRN (07:15)
[2023-03-21] MEDS ORDERED: ZOLPIDEM 5 MG (AMBIEN) TAB PO PRN (07:15)
[2023-03-21] MEDS ORDERED: ONDANSETRON INJECTION 4 MG/2 ML (SDV) IV PRN (07:15)
[2023-03-21] MEDS ORDERED: BENZOCAINE LOZENGES 1 EACH MM PRN (07:15)
[2023-03-21] MEDS ORDERED: proPOfol INJECTION 200 MG/20 ML VIAL IV ONE (07:34)
[2023-03-21] MEDS ORDERED: ONDANSETRON INJECTION 4 MG/2 ML (SDV) ONE (07:34)
[2023-03-21 07:41] LABS: ANISOCYTOSIS SLIGHT; BAND NEUTROPHILS 1 %; BASOPHILS % (MANUAL) 0 %; ELLIPT/OVALOCYTES SLIGHT; EOSINOPHILS % (MANUAL) 1 %; LYMPHOCYTES % (MANUAL) 10 %; MONOCYTES % (MANUAL) 2 %; NEUTROPHILS % (MANUAL) 86 %
[2023-03-21] MEDS ORDERED: ESTROGENS, Conjugated VAGINAL CREAM 30 GM ONE (07:47)
[2023-03-21] MEDS ORDERED: KETOROLAC INJ 30 MG/ML VIAL ONE (08:24)
--- NOTE | 2023-03-21 08:33 | Anesthesia-General Post-Op ---
General Patient Condition Mental Status/LOC: Same as Preop Cardiovascular: Satisfactory Nausea/Vomiting: Absent Respiratory: Satisfactory Pain: Controlled Complications: Absent Post Op Complications Complications None Follow Up Care/Instructions Patient Instructions None needed. Anesthesia/Patient Condition Patient Condition Patient is doing well, no complaints, stable vital signs, no apparent adverse anesthesia problems. No complications reported per nursing. PUNEET CABA CRNA Mar 21, 2023 08:33
--- NOTE | 2023-03-21 08:44 | Discharge Inst-Women's Service ---
Discharge Inst-Women's Serv Depart Medication/Instructions New, Converted or Re-Newed RX: Transmitted to Pharmacy Problems Reviewed?: Yes Consults/Follow Up Additional Follow Up: Yes Orders/Referrals Dr. Logan in 6-8 weeks Activity Activity: Activity as Tolerated Driving Instructions: No Driving for 1 Week NO SMOKING: NO SMOKING Nothing Inside Vagina: No Douching, No [place], No Tampons Diet Discharge Diet: No Restrictions Symptoms to Report to : Bleeding Excessive, Pain Increased, Fever Over 101 Degrees F, Vaginal Bleeding Increase, Questions/Concerns For Any Problems or Questions: Contact Your Physician DARIAN LOGAN DO Mar 21, 2023 08:44
[2023-03-21] MEDS ORDERED: fentaNYL INJECTION 100 MCG/2 ML VIAL IVP ONE (08:45)
[2023-03-21] MEDS ORDERED: ONDANSETRON INJECTION 4 MG/2 ML (SDV) IVP PRN (08:45)
[2023-03-21] MEDS ORDERED: SEVOFLURANE (ULTANE) 15 ML INHAL SOLN ONE (09:59)
[2023-03-21] MEDS: oxyCODONE/ACETAMINOPHEN 5/325MG TABLET PO PRN (11:26)
[2023-03-21] MEDS ORDERED: IBUPROFEN 600 MG TABLET PO SCH (12:00)
[2023-03-21] MEDS: KETOROLAC INJ 30 MG/ML VIAL IVP PRN ×2 (14:19→20:32)
[2023-03-21] MEDS ORDERED: RT-Ipratropium/Albuterol NEB 3 ML VIAL ONE (15:44)
[2023-03-21] MEDS ORDERED: RT-Ipratropium/Albuterol NEB 3 ML VIAL INH PRN (16:00)
[2023-03-21] MEDS: LACTATED RINGERS 1,000 ML 1,000 ML IV SCH ×2 (16:27→23:33)
[2023-03-21] MEDS ORDERED: PROM25TA14 PO (16:43)
[2023-03-21] MEDS ORDERED: PATIENT MAY USE OWN MEDS, ALL MC SCH (16:45)
--- NOTE | 2023-03-21 18:54 | OPERATIVE REPORT ---
DATE OF SERVICE: 03/21/2023 PREOPERATIVE DIAGNOSES: A 47-year-old female with grade 3 cystocele, grade 2 rectocele. POSTOPERATIVE DIAGNOSES: A 47-year-old female with grade 3 cystocele, grade 2 rectocele. PROCEDURE: Anterior colporrhaphy, posterior colporrhaphy and perineoplasty. SURGEON: Darian Logan DO ANESTHESIA: General endotracheal. ESTIMATED BLOOD LOSS: 50 mL URINE OUTPUT: 100 mL clear at the end of the procedure. FLUIDS: 1200 mL lactated Ringer's solution. FINDINGS: Grade III cystocele, grade II rectocele. Absent cervix. Grossly normal-appearing external female genitalia. Grossly normal-appearing vaginal mucosa. SPECIMEN SENT: None. INDICATIONS FOR PROCEDURE: This is a 47-year-old female who was a consultation in my office for ongoing concerns with pelvic organ prolapse. She described more concerned with her bladder falling whenever it is full and being able to reduce it whenever she needs to void. I discussed with the patient pessary placement. She is still sexually active and would prefer to have a surgical correction of this. I discussed with the patient anterior and posterior colporrhaphy. Risks of the procedure as well as the procedure itself in detail were reviewed with the patient in detail. After all of her questions were answered, she was agreeable to proceed. Consent was obtained. The patient was taken to the operating room. OPERATIVE REPORT IN DETAIL: Once in the operating room, anesthesia was found to be adequate, was placed in dorsal lithotomy position, prepped and draped in normal sterile fashion. A timeout was performed. A Knight catheter was placed using sterile technique. A weighted speculum was inserted to the patient's vagina. The extents of the proximal and distal margins of the cystocele were grasped using Allis clamp. I then infiltrated the submucosa of the vaginal mucosa that is overlying the cystocele using vasopressin concentration of 20 units in 100 mL of normal saline. Once there was appropriate blanching noted of the mucosa, I make a transverse incision at the bladder neck, undermined with my Metzenbaum scissors down the midline and incised mucosa down the midline using the Metzenbaum scissors. I then grasped the lateral aspects of the mucosa using a T-clamp, elevate them and dissect them off the underlying vesicovaginal fascia. This was done bilaterally until the lateral margins of the cystocele were reached, at which point I performed plicating suture placement of 0 Vicryl suture. This was done in interrupted fashion, reducing the entire cystocele as I go. After which, this is done, I then reapproximated the mucosa using 3-0 Vicryl suture in a running locked fashion. There was no active bleeding noted from any of my dissection planes. I then turned my attention to the rectocele where I in similar fashion infiltrated the mucosa of the rectocele margin using vasopressin. A total of 30 mL of my concentration are used. I also infiltrated the perineal body as well. I began by making a triangular incision on the perineal body and taking the cutaneous tissue off of this. I used this as reference to start my dissection plane and undermined down the midline of the mucosa using Metzenbaum scissors. I then incised in the midline of the mucosa using Metzenbaum scissors. I dissected the mucosa and submucosal tissue off of the rectocele to its lateral margin, at which point I reapproximated the mucosa and rectovaginal fascia all in one layer using 3-0 Vicryl suture in a running locked fashion to the layer of the mucocutaneous junction, at which point I placed 2 crown sutures reapproximating the perineal body using 0 Vicryl suture in interrupted fashion. I then reapproximated the cutaneous tissue using 3-0 Vicryl in a running subcuticular. After which, there was no active bleeding noted from any of my dissection planes. I then packed the vagina using Premarin-soaked packing. Lap and sponge counts were correct at the end of the procedure. At the end of the procedure, instrument counts correct as well. The patient tolerated the procedure well and was taken to recovery area in stable condition. Job ID: [id number] DocumentID: [id number] Dictated Date: 03/21/2023 10:11:50 Disability Benefits Specialist Date: 03/21/2023 18:53:00 Dictated By: DARIAN LOGAN DO
[2023-03-21] MEDS: RT-Ipratropium/Albuterol NEB 3 ML VIAL INH SCH ×2 (19:10→22:27)
[2023-03-21] MEDS: LACTULOSE 10 GM/15 ML SOLUTION PO SCH (20:32)
[2023-03-22] MEDS: oxyCODONE/ACETAMINOPHEN 5/325MG TABLET PO PRN (00:37)
[2023-03-22] MEDS: LACTATED RINGERS 1,000 ML 1,000 ML IV SCH (00:40)
[2023-03-22] MEDS: KETOROLAC INJ 30 MG/ML VIAL IVP PRN (02:15)
[2023-03-22] MEDS: RT-Ipratropium/Albuterol NEB 3 ML VIAL INH SCH (02:47)
[2023-03-22 03:34] VITALS: BP 150/70
[2023-03-22 08:00] VITALS: BP 161/85
[2023-03-22] MEDS ORDERED: IBUP-844 PO (08:07)
[2023-03-22] MEDS ORDERED: OXYC1TAB87 PO (08:07)
[2023-03-22] MEDS ORDERED: DOCU100C37 PO (08:07)
[2023-03-22] MEDS: LACTULOSE 10 GM/15 ML SOLUTION PO SCH (08:49)
== END 2023-03-22 10:10 | disposition home or self-care (01) ==
LOC: SDC 06:09 → WS 09:30 → SDC 03-22 10:10
PROVIDERS: ATTEND Obstetrics & Gynecology
DX: N81.10 Cystocele, unspecified (principal); N81.6 Rectocele; K21.9 Gastro-esophageal reflux disease without esophagitis; R33.9 Retention of urine, unspecified; G47.33 Obstructive sleep apnea (adult) (pediatric); F17.210 Nicotine dependence, cigarettes, uncomplicated; Z99.81 Dependence on supplemental oxygen
CPT/HCPCS: 36415; 82947; 85007; 85027; 86850; 86900; 86901; 87081; 94640; 94760

== ENCOUNTER 2023-04-03 16:26 | Emergency (ER) | payer MEDICAID ==
[~2023-04-03] VITALS: Ht 162 cm; Wt 80.0 kg
[~2023-04-03 16:26] MED LIST changes: +DOCU100C37 PO; +IBUP-844 PO; +OXYC1TAB87 PO
[2023-04-03] MEDS ORDERED: NS IV 1000 ML 1,000 ML IV STA (16:49)
--- NOTE | 2023-04-03 16:58 | ED Abdominal Pain ---
General Stated Complaint: POST-OP PAIN, LOWER ABD AND GROIN AREA, PEE PROBLE Source of Information: Patient Exam Limitations: No Limitations History of Present Illness Date Seen by Provider: Apr 03, 2023 Time Seen by Provider: 16:53 Initial Comments Patient is a 47-year-old female history of gastroparesis who presents to the ED postop pain, decreased urine output, decrease bowel movements. Patient had a anterior and posterior colporrhaphy performed by Dr. Suarez on March 21. She states she has been having lower abdominal discomfort since the surgery but this became worse over the past 2 days. Pressure in her lower abdomen constant. She noted decreased urine output over the past 2 days as well as bowel movement. She does get improvement with lactulose. Patient has been using her fentanyl patch for pain. She noticed her legs have been swelling bilateral of the past 3 to 4 days. She noticed a odor around her vaginal area. Denies of any specific discharge. She denies vomiting chills fever chest pain or shortness of breath. She contacted Dr. Suarez's office who recommended come the ED for further evaluation. History of MRSA. Notes vaginal odor. History of colitis and esophagitis. Allergies and Home Medications Allergies Coded Allergies: adhesive tape (Verified Allergy, Unknown, 09/10/21) canagliflozin (Verified Allergy, Unknown, Vomiting, 03/20/23) chlorhexidine (Verified Allergy, Unknown, 09/10/21) clindamycin (Verified Allergy, Unknown, 03/20/23) fluoxetine (Verified Allergy, Unknown, Hives, 03/20/23) fluvoxamine (Verified Allergy, Unknown, 09/10/21) hydromorphone (Verified Allergy, Unknown, 09/10/21) latex (Verified Allergy, Unknown, 09/10/21) meperidine (Verified Allergy, Unknown, 09/10/21) metoclopramide (Verified Allergy, Unknown, Tardive Dyskinesia, 09/10/21) morphine (Verified Allergy, Unknown, 09/10/21) promethazine (Verified Allergy, Unknown, 09/10/21) sulfamethoxazole (Verified Allergy, Unknown, 09/10/21) trimethoprim (Verified Allergy, Unknown, 09/10/21) varenicline (Verified Allergy, Unknown, 03/20/23) PANIC ATTACKS Patient Home Medication List Home Medication List Reviewed: Yes Albuterol Sulfate (Ventolin Hfa) 1 Puff Puff, 2 PUFF IH Q4H PRN for SHORTNESS OF BREATH, (Reported) Entered as Reported by: WILLIAN GARZA on 07/28/18 1032 Atorvastatin Calcium (Atorvastatin Calcium) 10 Mg Tablet, 10 MG PO DAILY, (Reported) Entered as Reported by: ADAN VALLADARES on 08/07/21 0200 Cefdinir (Cefdinir) 300 Mg Capsule, 300 MG PO BID, (Reported) Entered as Reported by: Rosio Mariano on 03/20/23 0956 Cetirizine HCl (Cetirizine HCl) 10 Mg Tablet, 10 MG PO HS, (Reported) Entered as Reported by: ADAN VALLADARES on 08/07/21 0211 Diazepam (Diazepam) 5 Mg Tablet, 5 MG PO BID Prescribed by: EULALIA TRACEY on 08/08/21 1044 Docusate Sodium (Docusate Sodium) 100 Mg Capsule, 100 MG PO BID PRN for CONSTIPATION-1ST LINE Prescribed by: DARIAN SUAREZ on 03/22/23 0807 Fentanyl (Fentanyl Patch 25 MCG) 1 Each Patch.td72, 25 MCG TD Q72H, (Reported) Entered as Reported by: MIRLANDE FINLEY on 09/09/21 1050 Fluticasone Propionate (Fluticasone Propionate) 16 Gm Clarence.susp, 2 SPRAYS NA DAILY, (Reported) Entered as Reported by: ADAN VALLADARES on 08/07/21 0207 Glucagon (Gvoke Hypopen 2-Pack) 1 Mg/0.2 Ml Auto.injct, 1 MG SC for HYPOGLYCEMIA, (Reported) Entered as Reported by: ADAN VALLADARES on 08/07/21 0313 Ibuprofen (Ibu) 600 Mg Tablet, 600 MG PO Q6HR Prescribed by: DARIAN SUAREZ on 03/22/23 0807 Ipratropium/Albuterol Sulfate (Iprat-Albut 0.5-3(2.5) mg/3 ml) 3 Ml Ampul.neb, 3 ML IH Q4H PRN for SHORTNESS OF BREATH, (Reported) Entered as Reported by: WILLIAN GARZA on 07/28/18 1033 Lactulose (Lactulose) 10 Gram Packet, 10 GM PO TID, (Reported) Entered as Reported by: Rosio Mariano on 03/20/23 0956 Lisinopril (Lisinopril) 10 Mg Tablet, 20 MG PO HS, (Reported) Entered as Reported by: ADAN VALLADARES on 08/07/21 020 Metoprolol Tartrate (Metoprolol Tartrate) 25 Mg Tablet, 25 MG PO BID, (Reported) Entered as Reported by: ADAN VALLADARES on 08/07/21 020 Metronidazole (Metronidazole) 500 Mg Tablet, 500 MG PO BID Prescribed by: INDIA WALDEN on 04/03/23 193 Omeprazole (Omeprazole) 40 Mg Capsule.dr, 40 MG PO BID, (Reported) Entered as Reported by: ADAN VALLADARES on 08/07/21 015 Ondansetron (Ondansetron Odt) 8 Mg Tab.rapdis, 8 MG PO Q8H PRN for NAUSEA-1ST LINE, (Reported) Entered as Reported by: ADAN VALLADARES on 08/07/21 015 Oxycodone HCl/Acetaminophen (Percocet 5-325 mg Tablet) 1 Each Tablet, 1-2 TAB PO Q6H PRN for PAIN-SEE DOSE INSTRUCTIONS Prescribed by: DARIAN SUAREZ on 03/22/23 0807 Promethazine HCl (Promethazine HCl) 50 Mg Tablet, 50 MG PO 0500,2100, (Reported) Entered as Reported by: ADAN VALLADARES on 08/07/21 015 Promethazine HCl (Promethegan) 12.5 Mg Supp.rect, 12.5 MG CO BID PRN for NAUSEA/VOMITING-3RD LINE, (Reported) Entered as Reported by: ADAN VALLADARES on 08/07/21 020 Promethazine HCl (Promethazine Tablet) 25 Mg Tablet, 25 MG PO WM, (Reported) Entered as Reported by: RUFUS GUEVARA on 03/21/23 1643 Trazodone HCl (Trazodone HCl) 150 Mg Tablet, 300 MG PO HS, (Reported) Entered as Reported by: WILLIAN GARZA on 07/28/18 1034 Review of Systems Review of Systems Constitutional: No chills, No diaphoresis EENTM: No Double Vision, No Eye Pain Respiratory: Denies Cough, Denies Orthopnea Cardiovascular: Denies Chest Pain Gastrointestinal: Abdominal Pain; Denies Diarrhea, Denies Nausea, Denies Vomiting Genitourinary: Other (Decreased urine output) Musculoskeletal: No back pain, No joint pain Skin: No change in color, No change in hair/nails Psychiatric/Neurological: Denies Anxiety, Denies Depressed All Other Systems Reviewed Negative Unless Noted: Yes Past Ovhrcgs-Jtjepp-Ncbhfc Hx Immunizations Up To Date First/Initial COVID19 Vaccinat: Second COVID19 Vaccination Guy: Third COVID19 Vaccination Date: Seasonal Allergies Seasonal Allergies: Yes Past Medical History Surgery/Hospitalization HX: Gastroparesis, chronic abdominal wound infection with MRSA, jejunostomytube October 2019, gastric stimulator, pyloroplasty, cholecystectomy,hysterectomy, orthopedics, iddm, gerd, cyclic vomitting, asthma, hep c, anx/dep, schizoaffective d/o Surgeries: Yes (carpal tunnel bilat, wound lesions) Abdominal, Gallbladder, Hysterectomy, Orthopedic Respiratory: Yes (inhalers, nebulizer treatments, 5L O2 AT NIGHT) Asthma, COPD, Emphysema Currently Using CPAP: No Currently Using BIPAP: No Cardiac: Yes Heart Murmur, High Cholesterol, Hypertension Neurological: Yes (from head injury - no recent seizures in last 2 years) Concussion, Seizure Disorder, Traumatic Brain Injury Female 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 Disorders: 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 Sexually Transmitted Disease: No HIV/AIDS: No Genitourinary: No Gastrointestinal: Yes (LYMPHOCYSTIC ESOPHAGITIS, Gastroparesis, hepatitis C, cyclic vomiting) Gastroesophageal Reflux, Chronic Diarrhea, Hepatitis, Ulcer Musculoskeletal: No Endocrine: Yes Diabetes, Non-Insulin dep HEENT: Yes (wears glasses) Hearing Impairment: Denies Cancer: No Psychosocial: Yes (Schizoaffective disorder) Anxiety, Depression Integumentary: Yes (abominal wound) Blood Disorders: No Adverse Reaction/Blood Tranf: No (N/A) Family Medical History No Pertinent Family Hx Physical Exam Vital Signs Vital Signs - First Documented 04/03/23 17:23 Temp 37.1 Pulse 89 Resp 20 B/P (MAP) 156/72 (100) Pulse Ox 99 O2 Delivery Room Air Capillary Refill : Height/Weight/BMI Height: 5'2.00" Weight: 184lbs. 7.0oz. 83.257152ru; 35.19 BMI Method:Actual General Appearance: WD/WN, no apparent distress HEENT: PERRL/EOMI, normal ENT inspection, TMs normal, pharynx normal Neck: non-tender, full range of motion, supple Respiratory: chest non-tender, lungs clear, normal breath sounds, no respiratory distress, no accessory muscle use Cardiovascular: regular rate, rhythm, no edema, no gallop, no JVD Gastrointestinal: normal bowel sounds, soft, no organomegaly, no pulsatile mass, tenderness (Suprapubic tenderness.) Rectal: No heme negative stool Extremities: normal range of motion, non-tender, normal inspection Back: normal inspection, no CVA tenderness Pelvic: other (Suture Polisher present. No vaginal swelling or redness. Very minimal white vaginal discharge. 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, no motor/sensory deficits, alert, normal mood/affect, oriented x 3 Skin: normal color, warm/dry Progress/Results/Core Measures Results/Orders Lab Results Laboratory Tests Test 04/03/23 17:56 04/03/23 18:45 Range/Units White Blood Count 7.2 4.3-11.0 10^3/uL Red Blood Count 3.68 L 3.80-5.11 10^6/uL Hemoglobin 11.2 L 11.5-16.0 g/dL Hematocrit 34 L 35-52 % Mean Corpuscular Volume 92 80-99 fL Mean Corpuscular Hemoglobin 30 25-34 pg Mean Corpuscular Hemoglobin Concent 33 32-36 g/dL Red Cell Distribution Width 15.6 H 10.0-14.5 % Platelet Count 223 130-400 10^3/uL Mean Platelet Volume 10.5 9.0-12.2 fL Immature Granulocyte % (Auto) 0 % Neutrophils (%) (Auto) 66 42-75 % Lymphocytes (%) (Auto) 27 12-44 % Monocytes (%) (Auto) 5 0-12 % Eosinophils (%) (Auto) 1 0-10 % Basophils (%) (Auto) 0 0-10 % Neutrophils # (Auto) 4.8 1.8-7.8 10^3/uL Lymphocytes # (Auto) 1.9 1.0-4.0 10^3/uL Monocytes # (Auto) 0.4 0.0-1.0 10^3/uL Eosinophils # (Auto) 0.1 0.0-0.3 10^3/uL Basophils # (Auto) 0.0 0.0-0.1 10^3/uL Immature Granulocyte # (Auto) 0.0 0.0-0.1 10^3/uL Sodium Level 142 135-145 MMOL/L Potassium Level 3.5 L 3.6-5.0 MMOL/L Chloride Level 110 H 98-107 MMOL/L Carbon Dioxide Level 20 L 21-32 MMOL/L Anion Gap 12 5-14 MMOL/L Blood Urea Nitrogen 13 7-18 MG/DL Creatinine 0.93 0.60-1.30 MG/DL Estimat Glomerular Filtration Rate 76 BUN/Creatinine Ratio 14 Glucose Level 138 H 70-105 MG/DL Calcium Level 8.9 8.5-10.1 MG/DL Corrected Calcium 9.1 8.5-10.1 MG/DL Total Bilirubin 0.3 0.1-1.0 MG/DL Aspartate Amino Transf (AST/SGOT) 22 5-34 U/L Alanine Aminotransferase (ALT/SGPT) 11 0-55 U/L Alkaline Phosphatase 67 40-136 U/L C-Reactive Protein High Sensitivity 0.23 0.00-0.50 MG/DL Total Protein 6.7 6.4-8.2 GM/DL Albumin 3.7 3.2-4.5 GM/DL Urine Color YELLOW Urine Clarity CLEAR Urine pH 5.5 5-9 Urine Specific [place] 1.010 L 1.016-1.022 Urine Protein 1+ H NEGATIVE Urine Glucose (UA) NEGATIVE NEGATIVE Urine Ketones NEGATIVE NEGATIVE Urine Nitrite NEGATIVE NEGATIVE Urine Bilirubin NEGATIVE NEGATIVE Urine Urobilinogen 0.2 < = 1.0 MG/DL Urine Leukocyte Esterase TRACE H NEGATIVE Urine RBC (Auto) 1+ H NEGATIVE Urine RBC 5-10 H /HPF Urine WBC 2-5 /HPF Urine Squamous Epithelial Cells 25-50 H /HPF Urine Crystals PRESENT H /LPF Urine Amorphous Sediment RARE CHRIS URATES H /LPF Urine Bacteria TRACE /HPF Urine Casts PRESENT /LPF Urine Hyaline Casts RARE /LPF Urine Mucus SMALL H /LPF Urine Other CLUE CELLS PRESENT /HPF Urine Culture Indicated NO My Orders Orders - RENALDO PERALES Wet Prep (04/03/23 16:49) Cbc And Automated Diff (04/03/23 16:49) Comprehensive Metabolic Panel (04/03/23 16:49) Hs C Reactive Protein (04/03/23 16:49) Ct Abdomen/Pelvis W (04/03/23 16:49) Ua Culture If Indicated (04/03/23 16:49) Ns Iv 1000 Ml (Ns Iv 1000 Ml) (04/03/23 16:49) Iohexol Injection (Omnipaque 350 Mg/Ml 1 (04/03/23 17:00) Received Contrast (Hold Metformin- Contr (04/03/23 17:00) Ns (Ivpb) 100 Ml (Sodium Chloride 0.9% 1 (04/03/23 17:00) Fentanyl Injection (Fentanyl Injection (04/03/23 18:05) Metronidazole Tablet (Metronidazole Tabl (04/03/23 19:45) Medications Given in ED Current Medications Medications Dose Ordered Sig/Faiza Route Start Time Stop Time Status Last Admin Dose Admin Iohexol 100 ml ONCE ONCE IV 04/03/23 17:00 04/03/23 17:04 DC 04/03/23 17:59 80 ML Metronidazole 500 mg ONCE ONCE PO 04/03/23 19:45 04/03/23 19:44 DC 04/03/23 19:39 500 MG Sodium Chloride 100 ml ONCE ONCE IV 04/03/23 17:00 04/03/23 17:04 DC 04/03/23 17:59 100 ML Vital Signs/I&O 04/03/23 17:23 Temp 37.1 Pulse 89 Resp 20 B/P (MAP) 156/72 (100) Pulse Ox 99 O2 Delivery Room Air Departure Communication (PCP) Differential diagnosis, UTI ,PID, abdominal abscess, abdominal wall cellulitis, prolapse. Patient had a colporropathy procedure performed by Dr. Suarez on March 21. Currently on a fentanyl patch. Patient afebrile. She reports suprapubic discomfort. She feels pressure in her lower abdomen. Exam I do not see any obvious prolapse. Vaginal discharge noted. Odor noted. Did perform a wet mount superficially to obtain culture. Urinalysis was obtained which did show trace leukocytes, red blood cells but squamous cells were noted. Likely more contaminated. Wet mount was positive for clue cells. Not concern for STDs. CBC, CMP was grossly unremarkable. Normal kidney function. She states she has not been urinating as much over the past 2 days as well as bowel movements. She is on the narcotic. Has been taking lactulose with improvement. Not wanting to eat or drink. Likely more secondary to dehydration. She did receive a liter of fluid and was able to urinate twice here. Pain improved with IV pain medication. CT abdomen pelvis was ordered which did not note any abscess, obstruction, colitis, free air. Patient was discussed with TRAFFIC [employer] SUPERVISOR Dr. Suarez. At this time recommend no further work-up. She does not appear septic. No evidence suggesting surgical abdomen. No abdominal wall cellulites. Recommend Flagyl for 5 days 500 mg twice daily. Continue with your pain medication. Recommend continue staying hydrated. Return back to ED if symptoms worsen. Impression Primary Impression: Abdominal pain Additional Impression: Bacterial vaginosis Disposition: 01 HOME, SELF-CARE Condition: Stable Departure-Patient Inst. Decision time for Depature: 19:34 Referrals: DARIAN SUAREZ MAXWELL MD (PCP/Family) Primary Care Physician Patient Instructions: Bacterial vaginosis Scripts Metronidazole (Metronidazole) 500 Mg Tablet 500 MG PO BID for 5 Days, #10 TAB Prov: RENALDO PERALES 04/03/23 RENALDO PERALES Apr 03, 2023 16:58
[2023-04-03] MEDS ORDERED: IOHEXOL 350 MG/ML 100 ML (OMNIPAQUE 350) VIAL IV ONE (17:00)
[2023-04-03] MEDS ORDERED: HOLD METFORMIN - RECEIVED CONTRAST 20 ML VIAL IV SCH (17:00)
[2023-04-03] MEDS ORDERED: NS 100 ML (IVPB) BAG IV ONE (17:00)
[2023-04-03 18:01] LABS: BASOPHILS % (AUTO) 0 % (0-10); EOSINOPHILS # (AUTO) 0.1 10^3/uL (0.0-0.3); EOSINOPHILS % (AUTO) 1 % (0-10); HEMATOCRIT 34 % (35-52); HEMOGLOBIN 11.2 g/dL (11.5-16.0); LYMPHOCYTES # (AUTO) 1.9 10^3/uL (1.0-4.0); LYMPHOCYTES % (AUTO) 27 % (12-44); MEAN CORPUSCULAR HEMOGLOBIN 30 pg (25-34); MEAN CORPUSCULAR HGB CONC 33 g/dL (32-36); MEAN CORPUSCULAR VOLUME 92 fL (80-99); MEAN PLATELET VOLUME 10.5 fL (9.0-12.2); MONOCYTES # (AUTO) 0.4 10^3/uL (0.0-1.0); MONOCYTES % (AUTO) 5 % (0-12); NEUTROPHILS # (AUTO) 4.8 10^3/uL (1.8-7.8); NEUTROPHILS % (AUTO) 66 % (42-75); PLATELET COUNT 223 10^3/uL (130-400); WHITE BLOOD COUNT 7.2 10^3/uL (4.3-11.0)
--- NOTE | 2023-04-03 18:03 | Diagnostic Imaging Report ---
CT ABDOMEN/PELVIS W TECHNIQUE: Multiple contiguous axial images were obtained through the abdomen and pelvis after administration of intravenous contrast. All CT scans use one or more of the following dose optimizing techniques: automated exposure control, MA and/or KvP adjustment based on patient size and exam type or iterative reconstruction. INDICATION: Lower abdominal pain. 2 weeks after rectocele repair. COMPARISON: None available. FINDINGS: Lower chest: The lung bases are clear. No pericardial or pleural effusion. Peritoneum: No free intraperitoneal air or fluid. Liver and biliary system: The liver is normal. Cholecystectomy. Spleen and Pancreas: Spleen is normal. The pancreas enhances normally without mass lesion or peripancreatic inflammatory changes. Adrenals: Normal. tract: The kidneys enhance normally without suspicious mass or obstruction. Urinary bladder is distended without wall thickening. Hysterectomy. No adnexal mass. No loculated fluid collection in the pelvis to suggest abscess. GI tract: Stomach is decompressed. No bowel obstruction. No pericolonic inflammatory changes. Fluid is present throughout the colon indicative diarrheal disease. The appendix is normal. Vasculature and Lymph nodes: Normal caliber aorta. No abdominal or pelvic lymphadenopathy. Musculoskeletal: No concerning osseous lesion. IMPRESSION: 1. No fluid collection indicate abscess. 2. No bowel obstruction, colitis or diverticulitis. Dictated by: Dictated on workstation # [id number]
[2023-04-03] MEDS ORDERED: fentaNYL INJECTION 100 MCG/2 ML VIAL IVP STA (18:05)
[2023-04-03 18:27] LABS: ALBUMIN 3.7 GM/DL (3.2-4.5)
[2023-04-03 18:28] LABS: POTASSIUM 3.5 MMOL/L (3.6-5.0)
[2023-04-03 18:29] LABS: CALCIUM 8.9 MG/DL (8.5-10.1)
[2023-04-03 18:30] LABS: TOTAL PROTEIN 6.7 GM/DL (6.4-8.2)
[2023-04-03 18:32] LABS: BILIRUBIN,TOTAL 0.3 MG/DL (0.1-1.0)
[2023-04-03 18:59] LABS: CREATININE SERUM 0.93 MG/DL (0.60-1.30)
[2023-04-03 19:07] LABS: AMORPHOUS SEDIMENT,UR RARE AMOR URATES /LPF; BACTERIA,URINE TRACE /HPF; BILIRUBIN,URINE NEGATIVE (NEGATIVE); CLARITY,URINE CLEAR; COLOR,URINE YELLOW; GLUCOSE, URINE (UA) NEGATIVE (NEGATIVE); KETONES,URINE NEGATIVE (NEGATIVE); LEUKOCYTE ESTERASE ,URINE TRACE (NEGATIVE); NITRITE,URINE NEGATIVE (NEGATIVE); PH,URINE 5.5 (5-9); PROTEIN,URINE 1+ (NEGATIVE); SQUAMOUS EPITHELIAL CELL,UR 25-50 /HPF
[2023-04-03 19:08] LABS: HYALINE CASTS, URINE RARE /LPF; URINE OTHER CLUE CELLS PRESENT /HPF
[2023-04-03] MEDS ORDERED: METR-145 PO (19:35)
[2023-04-03 19:43] VITALS: BP 142/68
[2023-04-03] MEDS ORDERED: metroNIDAZOLE 500 MG TABLET PO ONE (19:45)
== END 2023-04-03 19:44 | disposition home or self-care (01) ==
LOC: EDUNIT# 16:26 → ER 16:29
DX: R10.30 Lower abdominal pain, unspecified (principal); N76.0 Acute vaginitis
CPT/HCPCS: 36415; 74177; 80053; 81000; 85025; 86141; 87210